=== PATIENT | female | born 1945 | race Caucasian/White ===

== ENCOUNTER 2016-06-26 02:26 | Inpatient (IN) | payer MEDICARE, MEDICAID ==
[2016-06-26] MEDS: Sodium Chloride 0.9% 1,000 ML IV SCH ×2 (03:15→23:47)
[2016-06-26] MEDS ORDERED: Piperacillin Sodium/Tazobact 3.375 gm Vial IV ONE (05:09)
[2016-06-26] MEDS: Morphine Sulfate 2 mg/mL 1mL Syr IVP PRN ×3 (05:42→21:18)
[2016-06-26 06:28] VITALS: BP 146/65
[2016-06-26] MEDS: INSULIN ASPART SLIDING SCALE 100 UNITS/ML UNIT SUBQ SCH ×4 (06:46→21:10)
[2016-06-26 07:03] LABS: % BASOPHILS 0.6 % (0.0-2.0); % EOSINOPHILS 0.3 % (0.0-5.0); % LYMPHOCYTES 23.9 % (20.0-50.0); % MONOCYTES 5.6 % (2.0-10.0); % NEUTROPHILS 69.6 % (40.0-80.0); HEMOGLOBIN 11.9 gm/dL (11.7-16.1); MEAN CELL VOLUME 87.5 fl (81-100); MEAN CORPUSCULAR HEMOGLOBIN 29.8 pg (27.0-31.0); MEAN PLATELET VOLUME 8.5 fl; NEUTROPHILE ABSOLUTE 9.3 Th/cmm (1.8-8.0); PLATELET COUNT 271 Th/cmm (150-400); RED CELL DISTRIBUTION WIDTH 12.8 % (11.5-20.0)
[2016-06-26 07:10] LABS: ALB/GLOB RATIO 0.9 (1.0-1.8); ALKALINE PHOSPHATASE 127 U/L (34-104); ANION GAP 12.1 (7.0-16.0); BILIRUBIN,TOTAL 0.3 mg/dL (0.3-1.0); BUN - UREA NITROGEN 31 mg/dL (7-25); BUN/CREATININE RATIO 25.8; CALCIUM SERUM 8.5 mg/dL (8.6-10.3); CARBON DIOXIDE 19.8 mEq/L (21.0-31.0); CHLORIDE 105 mEq/L (98-107); CREATININE - SERUM 1.2 mg/dL (0.6-1.2); GLUCOSE 335 mg/dL (70-105); POTASSIUM SERUM 4.9 mEq/L (3.5-5.1); SGOT 38 U/L (13-39); SGPT/ALT 22 U/L (7-52); SODIUM SERUM 132 mEq/L (136-145)
[2016-06-26 07:53] LABS: WHITE BLOOD COUNT 13.3 Th/cmm (4.8-10.8)
--- NOTE | 2016-06-26 09:37 | History & Physical ---
CHIEF COMPLAINT: Cellulitis. HISTORY OF PRESENT ILLNESS: This is the case of a 70-year-old female who went to [facility] secondary to bilateral foot pain that had been progressing for the last 2 months. She referred in the beginning, pain was intermittent, but now is bilateral and constant. The patient was evaluated in [facility] and diagnosis was cellulitis with poor lower extremities circulation. The patient was then transferred to this hospital to continue treatment. PAST MEDICAL HISTORY: The patient has past medical history of diabetes mellitus and Parkinson disease. SOCIAL HISTORY: The patient lives at home with family members. She denies alcohol or drug abuse. MEDICATIONS: Reviewed. ALLERGIES: No known allergies. PAST SURGICAL HISTORY: Cholecystectomy. REVIEW OF SYSTEMS: LUNGS: The patient denies shortness of breath. HEART: The patient denies chest pain. ABDOMEN: Unremarkable. EXTREMITIES: The patient referred bilateral leg pain. PHYSICAL EXAMINATION: GENERAL: Does reveal and fairly nourished and developed female, awake, alert in some distress secondary to leg pain. HEENT: Head is normocephalic and atraumatic. Eyes: Pupils reactive to light. Nose: No evidence of nasal obstruction. Ears: No evidence of any discharge. Mouth: Fairly ____. LUNGS: Bilateral air entry. No wheezing, no crackles. HEART: Regular rate and rhythm. ABDOMEN: Soft, nontender, bowel sound present. EXTREMITIES: The patient has pain in both feet. Dorsalis pedis pulses are absent with poor circulation. Right foot, there is tender and decreased capillary refill and the left foot is the same. There is redness in the right foot and ankle and ulcer in the right heel and right toe. Pain increased on walking and decreased when ____ with no movement. NEUROLOGICAL: The patient is awake, alert and oriented. Nerves 2-12 grossly intact. No neurological deficit at this moment. IMPRESSION: 1. Cellulitis. 2. Peripheral vascular disease with poor leg circulation. 3. Diabetes mellitus. 4. Parkinson disease. PLAN: 1. The patient will be admitted to medical surgical floor. 2. Zosyn IV. 3. Continue home medications. 4. Insulin sliding scale. 5. Morphine for pain control. 6. Consult with Dr. Zelaya for circulation and evaluation. 7. CBC and CMP at a.m. JOB# [id number]
[2016-06-26] MEDS: Enoxaparin 30 mg/0.3 mL 0.3mL Syr SUBQ SCH (15:38)
--- NOTE | 2016-06-26 20:48 | Admit Criteria Form ---
Admit Criteria Forms - Admit Criteria Diagnosis: CELLULITIS Clinical Indications for Admission to Inpatient Care (Place 'X' for any and all applicable criteria): Admission is indicated for ANY ONE of the following(1)(2)(3)(4)(5): [ ]I. Limb-threatening infection [X]II. High-risk comorbid condition as indicated by ANY ONE of the following: [X]a) Uncontrolled diabetes (eg, HbA1c greater than 10% (0.1)) [ ]b) Cirrhosis [ ]c) Neutropenia [ ]d) Asplenia [ ]e) Immunosuppression [ ]f) Symptomatic heart failure [ ]III. Failure of outpatient therapy as indicated by ALL of the following: [ ]a) Progression or no improvement after adequate trial (minimum of 48 hours, with longer period for stable lower extremity infection) [ ]b) Adequate antibiotic regimen as indicated by use of ANY ONE of the following: [ ]i) First-generation cephalosporin (e.g., cephalexin) [ ]ii) Antistaphylococcal penicillin (e.g., dicloxacillin) [ ]iii) Penicillin-allergic patient regimen (clindamycin, extended-spectrum fluoroquinolone, or doxycycline) [ ]iv) Resistant organism (eg, methicillin-resistant Staphylococcus aureus) regimen (6) [ ]c) Outpatient intravenous therapy regimen is not appropriate due to ANY ONE of the following. (7)(8)(9)(10): [ ]i) It was tried and was not successful (eg, progression of infection). [ ]ii) It is not available or cannot be arranged in a clinically appropriate time frame (e.g., the next day). [ ]iii) Clinical presentation (eg, acuity of infection, rapidity of progression, confirmed or suspected bacteremia) is judged to require ALL of the following: [ ]1) Immediate initiation of intravenous therapy ( eg, cannot wait for next day) [ ]2) Intensity of patient monitoring and observation (eg, vital sign measurement, checks for infection progression) that cannot be provided at other than inpatient level of care [ ]IV. Mental status changes [ ]V. Bacteremia [ ]. Hemodynamic instability [ ]VII. Suspected necrotizing soft tissue infection (e.g., gas in tissue)(11)( 12) [ ]VIII. Orbital infection (13)(14) [ ]IX. Associated surgical procedure (e.g., abscess drainage, debridement) not amenable to outpatient, emergency department, or observation care [ ]X. Cutaneous gangrene [ ]XI. High fever (temperature greater than 39.5 degrees C (103.1 degrees F) (oral)) not responsive to outpatient, emergency department, or observation care therapy [ ]XIII. Inpatient admission required rather than observation care (Also use Cellulitis: Observation Care as appropriate) because of ANY ONE of the following : [ ]a) Periorbital or perineal infection that is severe or worsening [ ]b) Severe pain requiring acute inpatient management [ ]c) IV fluid to replace significant ongoing (e.g., for over 24 hours) losses (greater than 3L/m2 per day) [ ]d) Compartment syndrome monitoring (17) [ ]e) Strict or protective (eg, laminar flow) isolation [ ]f) Urgent debridement or skin grafting [ ]g) Bone or joint debridement [ ]h) Immediate inpatient surgery [ ]i) Other condition, treatment or monitoring requiring inpatient admission Extended stay beyond goal length of stay may be needed for (1)(18): [ ]a) Necrotizing soft tissue infection or fasciitis [ ]b) Gram-negative infection [ ]c) Methicillin-resistant Staphylococcal aureus (MRSA) infection [ ]d) Peripheral venous insufficiency with cellulitis [ ]e) Extensive edema [ ]f) Sepsis or continued Hemodynamic instability [ ]g) Continued high fever or mental status change [ ]h) Bacteremia [ ]i) Active serious comorbid conditions ( eg, heart failure, renal insufficiency) The original [facility] [employer] content created by [employer] in [place] has been revised. The portions of the content which have been revised are identified through the use of italic text or in bold, and [facility] has neither reviewed nor approved the modified material. All other unmodified content is copyright [facility] Please see references footnoted in the original [facility] in [place] edition 2016 Admit Criteria Met?: Yes
[2016-06-27] MEDS: Morphine Sulfate 2 mg/mL 1mL Syr IVP PRN ×4 (01:35→20:45)
[2016-06-27] MEDS: INSULIN ASPART SLIDING SCALE 100 UNITS/ML UNIT SUBQ SCH ×4 (06:39→21:11)
[2016-06-27 07:06] LABS: % BASOPHILS 0.5 % (0.0-2.0); % EOSINOPHILS 2.2 % (0.0-5.0); % MONOCYTES 6.7 % (2.0-10.0); % NEUTROPHILS 56.6 % (40.0-80.0); HEMATOCRIT 35.2 % (35.0-45.0); HEMOGLOBIN 11.9 gm/dL (11.7-16.1); MEAN CORPUSCULAR HEMOGLOBIN 29.7 pg (27.0-31.0); MEAN CORPUSCULAR HGB CONC 33.7 pg (28.0-36.0); NEUTROPHILE ABSOLUTE 6.1 Th/cmm (1.8-8.0); PLATELET COUNT 280 Th/cmm (150-400); RED CELL DISTRIBUTION WIDTH 12.8 % (11.5-20.0); WHITE BLOOD COUNT 10.7 Th/cmm (4.8-10.8)
[2016-06-27 07:26] LABS: INR 0.96 (0.5-1.4)
[2016-06-27 07:31] LABS: ALB/GLOB RATIO 0.9 (1.0-1.8); ALKALINE PHOSPHATASE 122 U/L (34-104); BILIRUBIN,TOTAL 0.5 mg/dL (0.3-1.0); BUN - UREA NITROGEN 21 mg/dL (7-25); BUN/CREATININE RATIO 17.5; CALCIUM SERUM 8.7 mg/dL (8.6-10.3); CARBON DIOXIDE 24.3 mEq/L (21.0-31.0); CHLORIDE 106 mEq/L (98-107); CREATININE - SERUM 1.2 mg/dL (0.6-1.2); GLUCOSE 223 mg/dL (70-105); POTASSIUM SERUM 4.3 mEq/L (3.5-5.1); SGOT 32 U/L (13-39); SGPT/ALT 5 U/L (7-52); SODIUM SERUM 135 mEq/L (136-145)
[2016-06-27] MEDS: Enoxaparin 30 mg/0.3 mL 0.3mL Syr SUBQ SCH ×3 (09:16→21:10)
--- NOTE | 2016-06-27 11:23 | General Progress Note ---
Subjective - Review of Systems Service Date: 06/27/16 Events since last encounter: consult dictated ulcer right heel for 2 months has been lying down a lot, can ambulate doppler arterial study done, no results yet has right heel ulcer that will need debridement might required CT angiogram Objective - Results Result Diagrams: 06/27/16 06:40 06/27/16 06:40 Recent Labs: Laboratory Last Values WBC 10.7 Th/cmm (4.8-10.8) 06/27/16 06:40 RBC 4.00 Mil/cmm (3.80-5.20) 06/27/16 06:40 Hgb 11.9 gm/dL (11.7-16.1) 06/27/16 06:40 Hct 35.2 % (35.0-45.0) 06/27/16 06:40 MCV 88.0 fl (81-100) 06/27/16 06:40 MCH 29.7 pg (27.0-31.0) 06/27/16 06:40 MCHC Differential 33.7 pg (28.0-36.0) 06/27/16 06:40 RDW 12.8 % (11.5-20.0) 06/27/16 06:40 Plt Count 280 Th/cmm (150-400) 06/27/16 06:40 MPV 8.0 fl 06/27/16 06:40 Neutrophils % 56.6 % (40.0-80.0) 06/27/16 06:40 Lymphocytes % 34.0 % (20.0-50.0) 06/27/16 06:40 Monocytes % 6.7 % (2.0-10.0) 06/27/16 06:40 Eosinophils % 2.2 % (0.0-5.0) 06/27/16 06:40 Basophils % 0.5 % (0.0-2.0) 06/27/16 06:40 PT 10.0 SECONDS (9.5-11.5) 06/27/16 06:40 INR 0.96 (0.5-1.4) 06/27/16 06:40 Sodium 135 mEq/L (136-145) L 06/27/16 06:40 Potassium 4.3 mEq/L (3.5-5.1) 06/27/16 06:40 Chloride 106 mEq/L (98-107) 06/27/16 06:40 Carbon Dioxide 24.3 mEq/L (21.0-31.0) 06/27/16 06:40 Anion Gap 9.0 (7.0-16.0) 06/27/16 06:40 BUN 21 mg/dL (7-25) 06/27/16 06:40 Creatinine 1.2 mg/dL (0.6-1.2) 06/27/16 06:40 Est GFR ( Amer) TNP 06/27/16 06:40 Est GFR (Non-Af Amer) TNP 06/27/16 06:40 BUN/Creatinine Ratio 17.5 06/27/16 06:40 Glucose 223 mg/dL (70-105) H 06/27/16 06:40 POC Glucose 234 MG/DL (70 - 105) H 06/27/16 05:52 Hemoglobin A1c % 11.1 % (4.0-6.0) H 06/26/16 06:45 Calcium 8.7 mg/dL (8.6-10.3) 06/27/16 06:40 Total Bilirubin 0.5 mg/dL (0.3-1.0) 06/27/16 06:40 AST 32 U/L (13-39) 06/27/16 06:40 ALT 5 U/L (7-52) L 06/27/16 06:40 Alkaline Phosphatase 122 U/L (34-104) H 06/27/16 06:40 Total Protein 6.3 gm/dL (6.0-8.3) 06/27/16 06:40 Albumin 3.0 gm/dL (3.7-5.3) L 06/27/16 06:40 Globulin 3.3 gm/dL 06/27/16 06:40 Albumin/Globulin Ratio 0.9 (1.0-1.8) L 06/27/16 06:40 TSH 1.52 uIU/ml (0.34-5.60) 06/27/16 06:40 - Physical Exam Vitals and I&O: Vital Signs Temp 97.8 F 06/27/16 05:00 Pulse 79 06/27/16 05:00 Resp 20 06/27/16 05:00 BP 161/73 06/27/16 05:00 Pulse Ox 92 06/27/16 05:00 Intake & Output 06/26/16 06/27/16 06/27/16 17:59 06:59 18:59 Intake Total Balance Intake: Intake, IV Amount Piperacillin Sodium/ Tazobact 3.375 gm In Sodium Chloride 0.9% 50 ml @ 100 mls/hr IV Q8HR [facility] Rx#:[id number] Sodium Chloride 0.9% 1, 000 ml @ 50 mls/hr IV . Q20H [facility] Rx#:[id number] Oral Other: # Voids # Bowel Movements Stool Characteristics Active Medications: Current Medications Acetaminophen (Tylenol) 650 mg PO Q6H PRN PRN Reason: FEVER 101, MILD PAIN Stop: 08/25/16 03:02 Last Admin: 06/26/16 19:42 Dose: 650 mg Carbidopa/Levodopa (Sinemet 25mg-100 Mg) 1 tab PO TID [facility] Stop: 08/25/16 08:59 Last Admin: 06/27/16 09:17 Dose: 1 tab Cholecalciferol (Vitamin D3) 2,000 iu PO DAILY [facility] Stop: 08/25/16 08:59 Last Admin: 06/27/16 09:17 Dose: 2,000 iu Enoxaparin Sodium (Lovenox) 30 mg SUBQ Q12HR [facility] Stop: 08/25/16 13:59 Last Admin: 06/27/16 09:19 Dose: 30 mg Piperacillin Sod/Tazobactam (Sod 3.375 gm/ Sodium Chloride) 50 mls @ 100 mls/ hr IV Q8HR [facility] Stop: 08/25/16 04:59 Last Admin: 06/27/16 05:55 Dose: 100 mls/hr Sodium Chloride (Nacl 0.9%) 1,000 mls @ 50 mls/hr IV .Q20H [facility] Stop: 08/25/16 03:14 Last Admin: 06/26/16 23:47 Dose: 50 mls/hr Insulin Aspart (Novolog Insulin Sliding Scale) 0 units SUBQ ACHS [facility] PRN Reason: Protocol Stop: 08/25/16 07:29 Last Admin: 06/27/16 06:39 Dose: 5 units Metformin HCl (Glucophage) 1,000 mg PO BIDWM [facility] Stop: 08/25/16 17:59 Last Admin: 06/27/16 09:17 Dose: 1,000 mg Morphine Sulfate (Morphine) 1 mg IVP Q4HR PRN PRN Reason: Pain (Severe) Stop: 08/25/16 20:54 Last Admin: 06/27/16 09:14 Dose: 1 mg Nutritional Asmnt/Malnutr-PDOC - Dietary Evaluation Malnutrition Findings (Please click <Entered> for more info): Nutritional Asmnt/Malnutrition Start: 06/26/16 09: 58 Text: Status: Complete Freq: Document 06/26/16 09:58 ROXANNE (Rec: 06/26/16 10:14 MMCAIT LEMONS- [email or web address]) Nutritional Asmnt/Malnutrition Patient General Information Nutritional Screening High Risk Screening Diagnosis Foot cellulitis (reason for visit) Pertinent Medical Hx/Surgical Hx diabetes and parkinson's disease Subjective Information Patient was transferred to this hospital with foot cellulitis. Patient lying in bed with granddaughter at bedside. Per granddaughter, patient's blood sugar is better controlled at home and doesn't usually go above 200 ( now 335). Patient does not follow a diabetic diet or know what foods affect blood sugar . Provided granddaughter with DM diet education including handouts on food sources of carbohydrates, meal planning and serving sizes. Current Diet Order/ Nutrition Support [facility] / S.O Indicated Pertinent Medications vitamin D, novolog Pertinent Labs (06/26) Na 132, Glucose 346, 335, Albumin 3 Nutritional Hx/Data Height 1.55 m Height (Calculated Centimeters) 154.9 Current Weight (lbs) 64.41 kg Weight (Calculated Kilograms) 64.4 Weight (Calculated Grams) 06215.1 [place] Body Weight 105 % [place] Body Weight 135 Recent Weight Change No Weight Status Overweight GI Symptoms GI Symptoms None Food Allergies No Cultural/Ethnic/Druze Belief none indicated Usual diet at home regular Skin Integrity/Comment: 3+ non-pitting edema in R Leg, 2+ non-pitting edema in L leg , Kei 18, Estimated Nutritional Goals BEE in Kcals: Using Current wt Calories/Kcals/Kg 25-30 kcal/kg Kcals Calculated 8628-1625 kcal/day Protein: Using Current wt Protein g/k-1.2 gm/kg (wound healing) Protein Calculated 65-75 gm/day Fluid: ml 3660-7608 ml/day Nutritional Problem 2. Problem Problem Food and nutrition related knowledge deficit related to Etiology lack of prior education on DM diet aeb Signs/Symptoms: unable to recognize food sources of carbohydrates. 1. Problem Problem Altered nutrition related lab values related to Etiology uncontrolled hyperglycemia aeb Signs/Symptoms: glucose 346, 335 Intervention/Recommendation Comments 1. Continue 60gm CCHO diet as tolerated by patient. 2. DM diet education provided/ handouts given. 3. MD to continue to adjust insulin regimen for optimal glycemic control. Expected Outcomes/Goals Expected Outcomes/Goals oral intake >75% of meals, glucose improves (80-180), skin integrity improves, weight remains stable.
--- NOTE | 2016-06-27 11:33 | Diagnostic Imaging Report ---
Bilateral lower extremity Doppler arterial ultrasound exam HISTORY: Pain, peripheral vascular disease Sonographic sector images were obtained through the arterial systems of both legs. Associated Doppler data was obtained. The exam of the left leg demonstrates abnormal monophasic waveforms within the common femoral, mid and distal superficial femoral, popliteal, anterior tibial, posterior tibial, and dorsalis pedis arteries. Marked increase in velocity noted within the distal portion of the superficial femoral artery. Sonographic images demonstrate diffuse mild severe atherosclerotic plaque throughout the entire arterial system. The ankle-brachial index is elevated (1.8). The right leg demonstrates biphasic waveforms within the common femoral and proximal portion of the superficial femoral artery. Abnormal monophasic waveforms are seen through the remainder of the arterial system. Abnormal decrease in velocity noted within the distal portion of the superficial femoral artery. Sonographic images demonstrate mild to moderate diffuse atherosclerotic plaque throughout the arterial system. The ankle-brachial index equals 1.23). IMPRESSION: Evidence of mild to severe diffuse atherosclerotic changes bilaterally (left greater in the right). Findings appear most pronounced within the distal superficial femoral artery regions. A CT angiographic study would provide additional detail and assessment.
--- NOTE | 2016-06-27 12:14 | General Progress Note ---
Subjective - Review of Systems Service Date: 06/27/16 Subjective: I have leg pain Objective - Results Result Diagrams: 06/27/16 06:40 06/27/16 06:40 Recent Labs: Laboratory Last Values WBC 10.7 Th/cmm (4.8-10.8) 06/27/16 06:40 RBC 4.00 Mil/cmm (3.80-5.20) 06/27/16 06:40 Hgb 11.9 gm/dL (11.7-16.1) 06/27/16 06:40 Hct 35.2 % (35.0-45.0) 06/27/16 06:40 MCV 88.0 fl (81-100) 06/27/16 06:40 MCH 29.7 pg (27.0-31.0) 06/27/16 06:40 MCHC Differential 33.7 pg (28.0-36.0) 06/27/16 06:40 RDW 12.8 % (11.5-20.0) 06/27/16 06:40 Plt Count 280 Th/cmm (150-400) 06/27/16 06:40 MPV 8.0 fl 06/27/16 06:40 Neutrophils % 56.6 % (40.0-80.0) 06/27/16 06:40 Lymphocytes % 34.0 % (20.0-50.0) 06/27/16 06:40 Monocytes % 6.7 % (2.0-10.0) 06/27/16 06:40 Eosinophils % 2.2 % (0.0-5.0) 06/27/16 06:40 Basophils % 0.5 % (0.0-2.0) 06/27/16 06:40 PT 10.0 SECONDS (9.5-11.5) 06/27/16 06:40 INR 0.96 (0.5-1.4) 06/27/16 06:40 Sodium 135 mEq/L (136-145) L 06/27/16 06:40 Potassium 4.3 mEq/L (3.5-5.1) 06/27/16 06:40 Chloride 106 mEq/L (98-107) 06/27/16 06:40 Carbon Dioxide 24.3 mEq/L (21.0-31.0) 06/27/16 06:40 Anion Gap 9.0 (7.0-16.0) 06/27/16 06:40 BUN 21 mg/dL (7-25) 06/27/16 06:40 Creatinine 1.2 mg/dL (0.6-1.2) 06/27/16 06:40 Est GFR ( Amer) TNP 06/27/16 06:40 Est GFR (Non-Af Amer) TNP 06/27/16 06:40 BUN/Creatinine Ratio 17.5 06/27/16 06:40 Glucose 223 mg/dL (70-105) H 06/27/16 06:40 POC Glucose 234 MG/DL (70 - 105) H 06/27/16 05:52 Hemoglobin A1c % 11.1 % (4.0-6.0) H 06/26/16 06:45 Calcium 8.7 mg/dL (8.6-10.3) 06/27/16 06:40 Total Bilirubin 0.5 mg/dL (0.3-1.0) 06/27/16 06:40 AST 32 U/L (13-39) 06/27/16 06:40 ALT 5 U/L (7-52) L 06/27/16 06:40 Alkaline Phosphatase 122 U/L (34-104) H 06/27/16 06:40 Total Protein 6.3 gm/dL (6.0-8.3) 06/27/16 06:40 Albumin 3.0 gm/dL (3.7-5.3) L 06/27/16 06:40 Globulin 3.3 gm/dL 06/27/16 06:40 Albumin/Globulin Ratio 0.9 (1.0-1.8) L 06/27/16 06:40 TSH 1.52 uIU/ml (0.34-5.60) 06/27/16 06:40 - Physical Exam Vitals and I&O: Vital Signs Temp 97.8 F 06/27/16 05:00 Pulse 79 06/27/16 05:00 Resp 20 06/27/16 05:00 BP 161/73 06/27/16 05:00 Pulse Ox 92 06/27/16 05:00 Intake & Output 06/26/16 06/27/16 06/27/16 17:59 06:59 18:59 Intake Total Balance Intake: Intake, IV Amount Piperacillin Sodium/ Tazobact 3.375 gm In Sodium Chloride 0.9% 50 ml @ 100 mls/hr IV Q8HR [facility] Rx#:[id number] Sodium Chloride 0.9% 1, 000 ml @ 50 mls/hr IV . Q20H [facility] Rx#:[id number] Oral Other: # Voids # Bowel Movements Stool Characteristics Active Medications: Current Medications Acetaminophen (Tylenol) 650 mg PO Q6H PRN PRN Reason: FEVER 101, MILD PAIN Stop: 08/25/16 03:02 Last Admin: 06/26/16 19:42 Dose: 650 mg Carbidopa/Levodopa (Sinemet 25mg-100 Mg) 1 tab PO TID [facility] Stop: 08/25/16 08:59 Last Admin: 06/27/16 09:17 Dose: 1 tab Cholecalciferol (Vitamin D3) 2,000 iu PO DAILY [facility] Stop: 08/25/16 08:59 Last Admin: 06/27/16 09:17 Dose: 2,000 iu Enoxaparin Sodium (Lovenox) 30 mg SUBQ Q12HR [facility] Stop: 08/25/16 13:59 Last Admin: 06/27/16 09:19 Dose: 30 mg Piperacillin Sod/Tazobactam (Sod 3.375 gm/ Sodium Chloride) 50 mls @ 100 mls/ hr IV Q8HR [facility] Stop: 08/25/16 04:59 Last Admin: 06/27/16 05:55 Dose: 100 mls/hr Sodium Chloride (Nacl 0.9%) 1,000 mls @ 50 mls/hr IV .Q20H [facility] Stop: 08/25/16 03:14 Last Admin: 06/26/16 23:47 Dose: 50 mls/hr Insulin Aspart (Novolog Insulin Sliding Scale) 0 units SUBQ ACHS [facility] PRN Reason: Protocol Stop: 08/25/16 07:29 Last Admin: 06/27/16 06:39 Dose: 5 units Metformin HCl (Glucophage) 1,000 mg PO BIDWM [facility] Stop: 08/25/16 17:59 Last Admin: 06/27/16 09:17 Dose: 1,000 mg Morphine Sulfate (Morphine) 1 mg IVP Q4HR PRN PRN Reason: Pain (Severe) Stop: 08/25/16 20:54 Last Admin: 06/27/16 09:14 Dose: 1 mg General: Alert, Oriented x3, Cooperative HEENT: Atraumatic Neck: Supple Cardiovascular: Regular rate Lungs: Clear to auscultation Abdomen: Bowel sounds, Soft Extremities: Other (There are few ulcer in both feets. Pedal pulses absent.) Neurological: Other (Unstable gait) Skin: Other (Ulcer in both feets. ) Psych/Mental Status: Mental status NL Assessment/Plan - Assessment Assessment: Patient is awake, calm, in no acute distress. Today WBC normal. Already seen by Surgeon. CT angio is requested - Plan Plan: CT angio is requested. Nutritional Asmnt/Malnutr-PDOC - Dietary Evaluation Malnutrition Findings (Please click <Entered> for more info): Nutritional Asmnt/Malnutrition Start: 06/26/16 09: 58 Text: Status: Complete Freq: Document 06/26/16 09:58 MMULMARIETTA (Rec: 06/26/16 10:14 MMULMARIETTA LEMONS- [email or web address]) Nutritional Asmnt/Malnutrition Patient General Information Nutritional Screening High Risk Screening Diagnosis Foot cellulitis (reason for visit) Pertinent Medical Hx/Surgical Hx diabetes and parkinson's disease Subjective Information Patient was transferred to this hospital with foot cellulitis. Patient lying in bed with granddaughter at bedside. Per granddaughter, patient's blood sugar is better controlled at home and doesn't usually go above 200 ( now 335). Patient does not follow a diabetic diet or know what foods affect blood sugar . Provided granddaughter with DM diet education including handouts on food sources of carbohydrates, meal planning and serving sizes. Current Diet Order/ Nutrition Support 60 gm [facility] Patient / S.O Indicated Pertinent Medications vitamin D, novolog Pertinent Labs (06/26) Na 132, Glucose 346, 335, Albumin 3 Nutritional Hx/Data Height 1.55 m Height (Calculated Centimeters) 154.9 Current Weight (lbs) 64.41 kg Weight (Calculated Kilograms) 64.4 Weight (Calculated Grams) 81942.1 [place] Body Weight 105 % [place] Body Weight 135 Recent Weight Change No Weight Status Overweight GI Symptoms GI Symptoms None Food Allergies No Cultural/Ethnic/Mu-Ism Belief none indicated Usual diet at home regular Skin Integrity/Comment: 3+ non-pitting edema in R Leg, 2+ non-pitting edema in L leg , Kei 18, Estimated Nutritional Goals BEE in Kcals: Using Current wt Calories/Kcals/Kg 25-30 kcal/kg Kcals Calculated 1810-5696 kcal/day Protein: Using Current wt Protein g/k-1.2 gm/kg (wound healing) Protein Calculated 65-75 gm/day Fluid: ml 0201-3287 ml/day Nutritional Problem 2. Problem Problem Food and nutrition related knowledge deficit related to Etiology lack of prior education on DM diet aeb Signs/Symptoms: unable to recognize food sources of carbohydrates. 1. Problem Problem Altered nutrition related lab values related to Etiology uncontrolled hyperglycemia aeb Signs/Symptoms: glucose 346, 335 Intervention/Recommendation Comments 1. Continue 60gm CCHO diet as tolerated by patient. 2. DM diet education provided/ handouts given. 3. MD to continue to adjust insulin regimen for optimal glycemic control. Expected Outcomes/Goals Expected Outcomes/Goals oral intake >75% of meals, glucose improves (80-180), skin integrity improves, weight remains stable.
--- NOTE | 2016-06-27 12:28 | Consultation ---
REFERRING PHYSICIAN: Dr. Dozier. REASON FOR CONSULTATION: Right heel ulcer and pain in both feet. Thank you for referring this patient to me. This 70-year-old female referred from [place] following examination there for bilateral foot pain. The patient does not speak [place]uvian, but granddaughter is at bedside and per her information, the patient has been mostly bedridden, but works occasionally for the last 3 months. Consequent to this, she has had the ulcer in the right heel in the last 2 to 3 months. Apparently, she still continues to get out of bed. She has diabetes mellitus and Parkinson disease. PAST SURGICAL HISTORY: Cholecystectomy. LABORATORY STUDIES: On this admission, the WBC slightly elevated to 13,300. Chemistry: Blood sugar was 335 with BUN slightly elevated to 31. Apparently vascular study has been done and the result is not available at this point. PHYSICAL EXAMINATION: EXTREMITIES: Significant findings in the lower extremity, no ankle pulses are palpable. There is a scab and a very painful ulcer in the right heel. The depth of which is difficult to determine at this point. There is a smaller ulcer in the left heel. Both feet, however, are fairly warm, although there is markedly decreased capillary refill. IMPRESSION: 1. Right heel ulcer, depth (?). 2. Peripheral vascular disease. 3. Diabetes mellitus. 4. Hypertension. RECOMMENDATIONS: Depending on the results of the vascular study, the patient might require CT angiogram. Excisional debridement of right heel ulcer will be done. Consent will be ordered and schedule for tomorrow. JOB# [id number] ROBYN
--- NOTE | 2016-06-27 15:07 | General Progress Note ---
Subjective - Review of Systems Service Date: 06/27/16 Events since last encounter: CTA orderred for tomorrow Objective - Results Result Diagrams: 06/27/16 06:40 06/27/16 06:40 Recent Labs: Laboratory Last Values WBC 10.7 Th/cmm (4.8-10.8) 06/27/16 06:40 RBC 4.00 Mil/cmm (3.80-5.20) 06/27/16 06:40 Hgb 11.9 gm/dL (11.7-16.1) 06/27/16 06:40 Hct 35.2 % (35.0-45.0) 06/27/16 06:40 MCV 88.0 fl (81-100) 06/27/16 06:40 MCH 29.7 pg (27.0-31.0) 06/27/16 06:40 MCHC Differential 33.7 pg (28.0-36.0) 06/27/16 06:40 RDW 12.8 % (11.5-20.0) 06/27/16 06:40 Plt Count 280 Th/cmm (150-400) 06/27/16 06:40 MPV 8.0 fl 06/27/16 06:40 Neutrophils % 56.6 % (40.0-80.0) 06/27/16 06:40 Lymphocytes % 34.0 % (20.0-50.0) 06/27/16 06:40 Monocytes % 6.7 % (2.0-10.0) 06/27/16 06:40 Eosinophils % 2.2 % (0.0-5.0) 06/27/16 06:40 Basophils % 0.5 % (0.0-2.0) 06/27/16 06:40 PT 10.0 SECONDS (9.5-11.5) 06/27/16 06:40 INR 0.96 (0.5-1.4) 06/27/16 06:40 Sodium 135 mEq/L (136-145) L 06/27/16 06:40 Potassium 4.3 mEq/L (3.5-5.1) 06/27/16 06:40 Chloride 106 mEq/L (98-107) 06/27/16 06:40 Carbon Dioxide 24.3 mEq/L (21.0-31.0) 06/27/16 06:40 Anion Gap 9.0 (7.0-16.0) 06/27/16 06:40 BUN 21 mg/dL (7-25) 06/27/16 06:40 Creatinine 1.2 mg/dL (0.6-1.2) 06/27/16 06:40 Est GFR ( Amer) TNP 06/27/16 06:40 Est GFR (Non-Af Amer) TNP 06/27/16 06:40 BUN/Creatinine Ratio 17.5 06/27/16 06:40 Glucose 223 mg/dL (70-105) H 06/27/16 06:40 POC Glucose 313 MG/DL (70 - 105) H 06/27/16 12:29 Hemoglobin A1c % 11.1 % (4.0-6.0) H 06/26/16 06:45 Calcium 8.7 mg/dL (8.6-10.3) 06/27/16 06:40 Total Bilirubin 0.5 mg/dL (0.3-1.0) 06/27/16 06:40 AST 32 U/L (13-39) 06/27/16 06:40 ALT 5 U/L (7-52) L 06/27/16 06:40 Alkaline Phosphatase 122 U/L (34-104) H 06/27/16 06:40 Total Protein 6.3 gm/dL (6.0-8.3) 06/27/16 06:40 Albumin 3.0 gm/dL (3.7-5.3) L 06/27/16 06:40 Globulin 3.3 gm/dL 06/27/16 06:40 Albumin/Globulin Ratio 0.9 (1.0-1.8) L 06/27/16 06:40 TSH 1.52 uIU/ml (0.34-5.60) 06/27/16 06:40 - Physical Exam Vitals and I&O: Vital Signs Temp 98.1 F 06/27/16 12:00 Pulse 80 06/27/16 12:00 Resp 18 06/27/16 12:00 BP 175/90 06/27/16 12:00 Pulse Ox 95 06/27/16 12:00 Intake & Output 06/26/16 06/27/16 06/27/16 17:59 06:59 18:59 Intake Total Balance Intake: Intake, IV Amount Piperacillin Sodium/ Tazobact 3.375 gm In Sodium Chloride 0.9% 50 ml @ 100 mls/hr IV Q8HR [facility] Rx#:[id number] Sodium Chloride 0.9% 1, 000 ml @ 50 mls/hr IV . Q20H [facility] Rx#:[id number] Oral Other: # Voids # Bowel Movements Stool Characteristics Active Medications: Current Medications Acetaminophen (Tylenol) 650 mg PO Q6H PRN PRN Reason: FEVER 101, MILD PAIN Stop: 08/25/16 03:02 Last Admin: 06/26/16 19:42 Dose: 650 mg Carbidopa/Levodopa (Sinemet 25mg-100 Mg) 1 tab PO TID [facility] Stop: 08/25/16 08:59 Last Admin: 06/27/16 09:17 Dose: 1 tab Cholecalciferol (Vitamin D3) 2,000 iu PO DAILY [facility] Stop: 08/25/16 08:59 Last Admin: 06/27/16 09:17 Dose: 2,000 iu Enoxaparin Sodium (Lovenox) 30 mg SUBQ Q12HR [facility] Stop: 08/25/16 13:59 Last Admin: 06/27/16 09:19 Dose: 30 mg Piperacillin Sod/Tazobactam (Sod 3.375 gm/ Sodium Chloride) 50 mls @ 100 mls/ hr IV Q8HR [facility] Stop: 08/25/16 04:59 Last Admin: 06/27/16 05:55 Dose: 100 mls/hr Sodium Chloride (Nacl 0.9%) 1,000 mls @ 50 mls/hr IV .Q20H [facility] Stop: 08/25/16 03:14 Last Admin: 06/26/16 23:47 Dose: 50 mls/hr Insulin Aspart (Novolog Insulin Sliding Scale) 0 units SUBQ ACHS [facility] PRN Reason: Protocol Stop: 08/25/16 07:29 Last Admin: 06/27/16 06:39 Dose: 5 units Metformin HCl (Glucophage) 1,000 mg PO BIDWM [facility] Stop: 08/25/16 17:59 Last Admin: 06/27/16 09:17 Dose: 1,000 mg Morphine Sulfate (Morphine) 1 mg IVP Q4HR PRN PRN Reason: Pain (Severe) Stop: 08/25/16 20:54 Last Admin: 06/27/16 09:14 Dose: 1 mg Nutritional Asmnt/Malnutr-PDOC - Dietary Evaluation Malnutrition Findings (Please click <Entered> for more info): Nutritional Asmnt/Malnutrition Start: 06/26/16 09: 58 Text: Status: Complete Freq: Document 06/26/16 09:58 ROXANNE (Rec: 06/26/16 10:14 ROXANNE LEMONS- FNS1) Nutritional Asmnt/Malnutrition Patient General Information Nutritional Screening High Risk Screening Diagnosis Foot cellulitis (reason for visit) Pertinent Medical Hx/Surgical Hx diabetes and parkinson's disease Subjective Information Patient was transferred to this hospital with foot cellulitis. Patient lying in bed with granddaughter at bedside. Per granddaughter, patient's blood sugar is better controlled at home and doesn't usually go above 200 ( now 335). Patient does not follow a diabetic diet or know what foods affect blood sugar . Provided granddaughter with DM diet education including handouts on food sources of carbohydrates, meal planning and serving sizes. Current Diet Order/ Nutrition Support 60 gm [facility] Patient / S.O Indicated Pertinent Medications vitamin D, novolog Pertinent Labs (06/26) Na 132, Glucose 346, 335, Albumin 3 Nutritional Hx/Data Height 1.55 m Height (Calculated Centimeters) 154.9 Current Weight (lbs) 64.41 kg Weight (Calculated Kilograms) 64.4 Weight (Calculated Grams) 82275.1 [place] Body Weight 105 % [place] Body Weight 135 Recent Weight Change No Weight Status Overweight GI Symptoms GI Symptoms None Food Allergies No Cultural/Ethnic/Episcopalian Belief none indicated Usual diet at home regular Skin Integrity/Comment: 3+ non-pitting edema in R Leg, 2+ non-pitting edema in L leg , Kei 18, Estimated Nutritional Goals BEE in Kcals: Using Current wt Calories/Kcals/Kg 25-30 kcal/kg Kcals Calculated 1552-8314 kcal/day Protein: Using Current wt Protein g/k-1.2 gm/kg (wound healing) Protein Calculated 65-75 gm/day Fluid: ml 5410-4423 ml/day Nutritional Problem 2. Problem Problem Food and nutrition related knowledge deficit related to Etiology lack of prior education on DM diet aeb Signs/Symptoms: unable to recognize food sources of carbohydrates. 1. Problem Problem Altered nutrition related lab values related to Etiology uncontrolled hyperglycemia aeb Signs/Symptoms: glucose 346, 335 Intervention/Recommendation Comments 1. Continue 60gm CCHO diet as tolerated by patient. 2. DM diet education provided/ handouts given. 3. MD to continue to adjust insulin regimen for optimal glycemic control. Expected Outcomes/Goals Expected Outcomes/Goals oral intake >75% of meals, glucose improves (80-180), skin integrity improves, weight remains stable.
[2016-06-27] MEDS: Sodium Chloride 0.9% 1,000 ML IV SCH (20:03)
[2016-06-28] MEDS: INSULIN ASPART SLIDING SCALE 100 UNITS/ML UNIT SUBQ SCH ×4 (06:42→22:35)
[2016-06-28 07:07] LABS: % BASOPHILS 0.4 % (0.0-2.0); % EOSINOPHILS 0.4 % (0.0-5.0); % LYMPHOCYTES 18.9 % (20.0-50.0); % MONOCYTES 6.4 % (2.0-10.0); % NEUTROPHILS 73.9 % (40.0-80.0); HEMATOCRIT 36.5 % (35.0-45.0); HEMOGLOBIN 12.1 gm/dL (11.7-16.1); MEAN CELL VOLUME 87.5 fl (81-100); MEAN CORPUSCULAR HEMOGLOBIN 29.1 pg (27.0-31.0); MEAN CORPUSCULAR HGB CONC 33.3 pg (28.0-36.0); MEAN PLATELET VOLUME 8.2 fl; NEUTROPHILE ABSOLUTE 9.8 Th/cmm (1.8-8.0); PLATELET COUNT 285 Th/cmm (150-400); RED BLOOD COUNT 4.17 Mil/cmm (3.80-5.20); RED CELL DISTRIBUTION WIDTH 12.6 % (11.5-20.0)
[2016-06-28 07:13] LABS: ALB/GLOB RATIO 0.9 (1.0-1.8); ALKALINE PHOSPHATASE 119 U/L (34-104); ANION GAP 12.2 (7.0-16.0); BILIRUBIN,TOTAL 0.4 mg/dL (0.3-1.0); BUN - UREA NITROGEN 11 mg/dL (7-25); BUN/CREATININE RATIO 12.2; CALCIUM SERUM 8.9 mg/dL (8.6-10.3); CARBON DIOXIDE 23.4 mEq/L (21.0-31.0); CHLORIDE 102 mEq/L (98-107); CREATININE - SERUM 0.9 mg/dL (0.6-1.2); GLUCOSE 255 mg/dL (70-105); POTASSIUM SERUM 3.6 mEq/L (3.5-5.1); SGOT 16 U/L (13-39); SGPT/ALT 8 U/L (7-52); SODIUM SERUM 134 mEq/L (136-145)
[2016-06-28 07:31] LABS: WHITE BLOOD COUNT 13.5 Th/cmm (4.8-10.8)
--- NOTE | 2016-06-28 08:37 | General Progress Note ---
Subjective - Review of Systems Service Date: 06/28/16 Subjective: I have leg pain Objective - Results Result Diagrams: 06/28/16 06:20 06/28/16 06:20 Recent Labs: Laboratory Last Values WBC 13.5 Th/cmm (4.8-10.8) H D 06/28/16 06:20 RBC 4.17 Mil/cmm (3.80-5.20) 06/28/16 06:20 Hgb 12.1 gm/dL (11.7-16.1) 06/28/16 06:20 Hct 36.5 % (35.0-45.0) 06/28/16 06:20 MCV 87.5 fl (81-100) 06/28/16 06:20 MCH 29.1 pg (27.0-31.0) 06/28/16 06:20 MCHC Differential 33.3 pg (28.0-36.0) 06/28/16 06:20 RDW 12.6 % (11.5-20.0) 06/28/16 06:20 Plt Count 285 Th/cmm (150-400) 06/28/16 06:20 MPV 8.2 fl 06/28/16 06:20 Neutrophils % 73.9 % (40.0-80.0) 06/28/16 06:20 Lymphocytes % 18.9 % (20.0-50.0) L 06/28/16 06:20 Monocytes % 6.4 % (2.0-10.0) 06/28/16 06:20 Eosinophils % 0.4 % (0.0-5.0) 06/28/16 06:20 Basophils % 0.4 % (0.0-2.0) 06/28/16 06:20 PT 10.0 SECONDS (9.5-11.5) 06/27/16 06:40 INR 0.96 (0.5-1.4) 06/27/16 06:40 Sodium 134 mEq/L (136-145) L 06/28/16 06:20 Potassium 3.6 mEq/L (3.5-5.1) 06/28/16 06:20 Chloride 102 mEq/L (98-107) 06/28/16 06:20 Carbon Dioxide 23.4 mEq/L (21.0-31.0) 06/28/16 06:20 Anion Gap 12.2 (7.0-16.0) 06/28/16 06:20 BUN 11 mg/dL (7-25) 06/28/16 06:20 Creatinine 0.9 mg/dL (0.6-1.2) 06/28/16 06:20 Est GFR ( Amer) TNP 06/28/16 06:20 Est GFR (Non-Af Amer) TNP 06/28/16 06:20 BUN/Creatinine Ratio 12.2 06/28/16 06:20 Glucose 255 mg/dL (70-105) H 06/28/16 06:20 POC Glucose 249 MG/DL (70 - 105) H 06/28/16 05:59 Hemoglobin A1c % 11.1 % (4.0-6.0) H 06/26/16 06:45 Calcium 8.9 mg/dL (8.6-10.3) 06/28/16 06:20 Total Bilirubin 0.4 mg/dL (0.3-1.0) 06/28/16 06:20 AST 16 U/L (13-39) 06/28/16 06:20 ALT 8 U/L (7-52) 06/28/16 06:20 Alkaline Phosphatase 119 U/L (34-104) H 06/28/16 06:20 Total Protein 6.6 gm/dL (6.0-8.3) 06/28/16 06:20 Albumin 3.1 gm/dL (3.7-5.3) L 06/28/16 06:20 Globulin 3.5 gm/dL 06/28/16 06:20 Albumin/Globulin Ratio 0.9 (1.0-1.8) L 06/28/16 06:20 TSH 1.52 uIU/ml (0.34-5.60) 06/27/16 06:40 - Physical Exam Vitals and I&O: Vital Signs Temp 98.7 F 06/28/16 07:45 Pulse 108 06/28/16 07:45 Resp 18 06/28/16 07:45 BP 150/85 06/28/16 07:45 Pulse Ox 92 06/28/16 07:45 Intake & Output 06/27/16 06/28/16 06/28/16 18:59 06:59 18:59 Intake Total 460 1013.333 Balance 460 1013.333 Intake: Intake, IV Amount 60 1013.333 Piperacillin Sodium/ 60 50 Tazobact 3.375 gm In Sodium Chloride 0.9% 50 ml @ 100 mls/hr IV Q8HR [facility] Rx#:[id number] Sodium Chloride 0.9% 1, 963.333 000 ml @ 50 mls/hr IV . Q20H [facility] Rx#:[id number] Oral 400 Other: # Voids 4 # Bowel Movements 1 Active Medications: Current Medications Acetaminophen (Tylenol) 650 mg PO Q6H PRN PRN Reason: FEVER 101, MILD PAIN Stop: 08/25/16 03:02 Last Admin: 06/27/16 15:12 Dose: 650 mg Carbidopa/Levodopa (Sinemet 25mg-100 Mg) 1 tab PO TID [facility] Stop: 08/25/16 08:59 Last Admin: 06/27/16 21:09 Dose: 1 tab Cholecalciferol (Vitamin D3) 2,000 iu PO DAILY [facility] Stop: 08/25/16 08:59 Last Admin: 06/27/16 09:17 Dose: 2,000 iu Enoxaparin Sodium (Lovenox) 30 mg SUBQ Q12HR [facility] Stop: 08/25/16 13:59 Last Admin: 06/27/16 21:10 Dose: 30 mg Piperacillin Sod/Tazobactam (Sod 3.375 gm/ Sodium Chloride) 50 mls @ 100 mls/ hr IV Q8HR [facility] Stop: 08/25/16 04:59 Last Admin: 06/28/16 05:59 Dose: 100 mls/hr Sodium Chloride (Nacl 0.9%) 1,000 mls @ 50 mls/hr IV .Q20H [facility] Stop: 08/25/16 03:14 Last Admin: 06/27/16 20:03 Dose: 50 mls/hr Insulin Aspart (Novolog Insulin Sliding Scale) 0 units SUBQ ACHS [facility] PRN Reason: Protocol Stop: 08/25/16 07:29 Last Admin: 06/28/16 06:42 Dose: Not Given Lorazepam (Ativan) 1 mg IVP Q8HR PRN; Protocol PRN Reason: Agitation Stop: 08/26/16 23:27 Last Admin: 06/28/16 00:01 Dose: 1 mg Morphine Sulfate (Morphine) 1 mg IVP Q4HR PRN PRN Reason: Pain (Severe) Stop: 08/25/16 20:54 Last Admin: 06/27/16 20:45 Dose: 1 mg General: Alert, Oriented x3, Cooperative, Mild distress HEENT: Atraumatic Neck: Supple Cardiovascular: Regular rate Abdomen: Bowel sounds, Soft Extremities: Other (No edema, Redness improving, pain at movement of both legs. ) Neurological: Other (Non ambulatory) Skin: Other (There are some ulcers in both feets. ) Psych/Mental Status: Mental status NL Assessment/Plan - Assessment Assessment: Patient is awake, calm, in no acute distress. Today WBC is high. CT angio is requested - Plan Plan: CT angio is requested. Nutritional Asmnt/Malnutr-PDOC - Dietary Evaluation Malnutrition Findings (Please click <Entered> for more info): Nutritional Asmnt/Malnutrition Start: 06/26/16 09: 58 Text: Status: Complete Freq: Document 06/26/16 09:58 ROXANNE (Rec: 06/26/16 10:14 MMULN CRISTO- FNS1) Nutritional Asmnt/Malnutrition Patient General Information Nutritional Screening High Risk Screening Diagnosis Foot cellulitis (reason for visit) Pertinent Medical Hx/Surgical Hx diabetes and parkinson's disease Subjective Information Patient was transferred to this hospital with foot cellulitis. Patient lying in bed with granddaughter at bedside. Per granddaughter, patient's blood sugar is better controlled at home and doesn't usually go above 200 ( now 335). Patient does not follow a diabetic diet or know what foods affect blood sugar . Provided granddaughter with DM diet education including handouts on food sources of carbohydrates, meal planning and serving sizes. Current Diet Order/ Nutrition Support 60 gm [facility] [place] Patient / S.O Indicated Pertinent Medications vitamin D, novolog Pertinent Labs (06/26) Na 132, Glucose 346, 335, Albumin 3 Nutritional Hx/Data Height 1.55 m Height (Calculated Centimeters) 154.9 Current Weight (lbs) 64.41 kg Weight (Calculated Kilograms) 64.4 Weight (Calculated Grams) 48767.1 [place] Body Weight 105 % [place] Body Weight 135 Recent Weight Change No Weight Status Overweight GI Symptoms GI Symptoms None Food Allergies No Cultural/Ethnic/Voodoo Belief none indicated Usual diet at home regular Skin Integrity/Comment: 3+ non-pitting edema in R Leg, 2+ non-pitting edema in L leg , Kei 18, Estimated Nutritional Goals BEE in Kcals: Using Current wt Calories/Kcals/Kg 25-30 kcal/kg Kcals Calculated 3957-6490 kcal/day Protein: Using Current wt Protein g/k-1.2 gm/kg (wound healing) Protein Calculated 65-75 gm/day Fluid: ml 0247-2334 ml/day Nutritional Problem 2. Problem Problem Food and nutrition related knowledge deficit related to Etiology lack of prior education on DM diet aeb Signs/Symptoms: unable to recognize food sources of carbohydrates. 1. Problem Problem Altered nutrition related lab values related to Etiology uncontrolled hyperglycemia aeb Signs/Symptoms: glucose 346, 335 Intervention/Recommendation Comments 1. Continue 60gm CCHO diet as tolerated by patient. 2. DM diet education provided/ handouts given. 3. MD to continue to adjust insulin regimen for optimal glycemic control. Expected Outcomes/Goals Expected Outcomes/Goals oral intake >75% of meals, glucose improves (80-180), skin integrity improves, weight remains stable.
[2016-06-28] MEDS: Morphine Sulfate 2 mg/mL 1mL Syr IVP PRN ×2 (09:00→21:15)
[2016-06-28] MEDS: Enoxaparin 30 mg/0.3 mL 0.3mL Syr SUBQ SCH ×2 (09:00→21:05)
[2016-06-28] MEDS ORDERED: IOHEXOL 350mg/mL 100mL Bottle IVP ONE (09:46)
--- NOTE | 2016-06-28 09:46 | Diagnostic Imaging Report ---
CHEST X-RAY: AP view INDICATION: Pneumonia COMPARISON: None FINDINGS: Suboptimal lung volumes are seen. No focal consolidation. There may be a small right pleural effusion versus right basal pleural thickening. Mild cardiomegaly is noted. Degenerative changes of the spine are noted. There is evidence of prior cholecystectomy. IMPRESSION: Suboptimal lung volume with no focal consolidation identified. Right basal pleural thickening versus less likely small right effusion. Mild cardiomegaly.
[2016-06-28] MEDS ORDERED: fentaNYL Citrate 100 mcg/2mL Vial ONE (12:59)
[2016-06-28] MEDS ORDERED: Midazolam 1mg/ml 2 ml vial IV ONE (12:59)
--- NOTE | 2016-06-28 13:17 | General Progress Note ---
Subjective - Review of Systems Service Date: 06/28/16 Events since last encounter: debridement done wound vac applied CTA later today Objective - Results Result Diagrams: 06/28/16 06:20 06/28/16 06:20 Recent Labs: Laboratory Last Values WBC 13.5 Th/cmm (4.8-10.8) H D 06/28/16 06:20 RBC 4.17 Mil/cmm (3.80-5.20) 06/28/16 06:20 Hgb 12.1 gm/dL (11.7-16.1) 06/28/16 06:20 Hct 36.5 % (35.0-45.0) 06/28/16 06:20 MCV 87.5 fl (81-100) 06/28/16 06:20 MCH 29.1 pg (27.0-31.0) 06/28/16 06:20 MCHC Differential 33.3 pg (28.0-36.0) 06/28/16 06:20 RDW 12.6 % (11.5-20.0) 06/28/16 06:20 Plt Count 285 Th/cmm (150-400) 06/28/16 06:20 MPV 8.2 fl 06/28/16 06:20 Neutrophils % 73.9 % (40.0-80.0) 06/28/16 06:20 Lymphocytes % 18.9 % (20.0-50.0) L 06/28/16 06:20 Monocytes % 6.4 % (2.0-10.0) 06/28/16 06:20 Eosinophils % 0.4 % (0.0-5.0) 06/28/16 06:20 Basophils % 0.4 % (0.0-2.0) 06/28/16 06:20 PT 10.0 SECONDS (9.5-11.5) 06/27/16 06:40 INR 0.96 (0.5-1.4) 06/27/16 06:40 Sodium 134 mEq/L (136-145) L 06/28/16 06:20 Potassium 3.6 mEq/L (3.5-5.1) 06/28/16 06:20 Chloride 102 mEq/L (98-107) 06/28/16 06:20 Carbon Dioxide 23.4 mEq/L (21.0-31.0) 06/28/16 06:20 Anion Gap 12.2 (7.0-16.0) 06/28/16 06:20 BUN 11 mg/dL (7-25) 06/28/16 06:20 Creatinine 0.9 mg/dL (0.6-1.2) 06/28/16 06:20 Est GFR ( Amer) TNP 06/28/16 06:20 Est GFR (Non-Af Amer) TNP 06/28/16 06:20 BUN/Creatinine Ratio 12.2 06/28/16 06:20 Glucose 255 mg/dL (70-105) H 06/28/16 06:20 POC Glucose 280 MG/DL (70 - 105) H 06/28/16 11:44 Hemoglobin A1c % 11.1 % (4.0-6.0) H 06/26/16 06:45 Calcium 8.9 mg/dL (8.6-10.3) 06/28/16 06:20 Total Bilirubin 0.4 mg/dL (0.3-1.0) 06/28/16 06:20 AST 16 U/L (13-39) 06/28/16 06:20 ALT 8 U/L (7-52) 06/28/16 06:20 Alkaline Phosphatase 119 U/L (34-104) H 06/28/16 06:20 Total Protein 6.6 gm/dL (6.0-8.3) 06/28/16 06:20 Albumin 3.1 gm/dL (3.7-5.3) L 06/28/16 06:20 Globulin 3.5 gm/dL 06/28/16 06:20 Albumin/Globulin Ratio 0.9 (1.0-1.8) L 06/28/16 06:20 TSH 1.52 uIU/ml (0.34-5.60) 06/27/16 06:40 - Physical Exam Vitals and I&O: Vital Signs Temp 98.7 F 06/28/16 12:02 Pulse 101 06/28/16 12:02 Resp 19 06/28/16 12:02 BP 166/68 06/28/16 12:02 Pulse Ox 100 06/28/16 12:02 Intake & Output 06/27/16 06/28/16 06/28/16 18:59 06:59 18:59 Intake Total 460 1013.333 Balance 460 1013.333 Intake: Intake, IV Amount 60 1013.333 Piperacillin Sodium/ 60 50 Tazobact 3.375 gm In Sodium Chloride 0.9% 50 ml @ 100 mls/hr IV Q8HR [facility] Rx#:[id number] Sodium Chloride 0.9% 1, 963.333 000 ml @ 50 mls/hr IV . Q20H [facility] Rx#:[id number] Oral 400 Other: # Voids 4 # Bowel Movements 1 Active Medications: Current Medications Acetaminophen (Tylenol) 650 mg PO Q6H PRN PRN Reason: FEVER 101, MILD PAIN Stop: 08/25/16 03:02 Last Admin: 06/27/16 15:12 Dose: 650 mg Carbidopa/Levodopa (Sinemet 25mg-100 Mg) 1 tab PO TID [facility] Stop: 08/25/16 08:59 Last Admin: 06/28/16 09:01 Dose: Not Given Cholecalciferol (Vitamin D3) 2,000 iu PO DAILY [facility] Stop: 08/25/16 08:59 Last Admin: 06/28/16 09:01 Dose: Not Given Enoxaparin Sodium (Lovenox) 30 mg SUBQ Q12HR [facility] Stop: 08/25/16 13:59 Last Admin: 06/28/16 09:00 Dose: 30 mg Piperacillin Sod/Tazobactam (Sod 3.375 gm/ Sodium Chloride) 50 mls @ 100 mls/ hr IV Q8HR [facility] Stop: 08/25/16 04:59 Last Admin: 06/28/16 05:59 Dose: 100 mls/hr Sodium Chloride (Nacl 0.9%) 1,000 mls @ 50 mls/hr IV .Q20H [facility] Stop: 08/25/16 03:14 Last Admin: 06/27/16 20:03 Dose: 50 mls/hr Vancomycin HCl 1 gm/ Sodium (Chloride) 250 mls @ 165 mls/hr IV Q24H [facility] Stop: 08/27/16 09:59 Last Admin: 06/28/16 11:20 Dose: 165 mls/hr Insulin Aspart (Novolog Insulin Sliding Scale) 0 units SUBQ ACHS [facility] PRN Reason: Protocol Stop: 08/25/16 07:29 Last Admin: 06/28/16 12:02 Dose: Not Given Lorazepam (Ativan) 1 mg IVP Q8HR PRN; Protocol PRN Reason: Agitation Stop: 08/26/16 23:27 Last Admin: 06/28/16 10:10 Dose: 1 mg Miscellaneous (Vancomycin Iv Per Pharmacy) 1 ea [facility] DAILY [facility] Stop: 08/27/16 09:59 Morphine Sulfate (Morphine) 1 mg IVP Q4HR PRN PRN Reason: Pain (Severe) Stop: 08/25/16 20:54 Last Admin: 06/28/16 09:00 Dose: 1 mg Nutritional Asmnt/Malnutr-PDOC - Dietary Evaluation Malnutrition Findings (Please click <Entered> for more info): Nutritional Asmnt/Malnutrition Start: 06/26/16 09: 58 Text: Status: Complete Freq: Document 06/26/16 09:58 ROXANNE (Rec: 06/26/16 10:14 ROXANNE LEMONS- FNS1) Nutritional Asmnt/Malnutrition Patient General Information Nutritional Screening High Risk Screening Diagnosis Foot cellulitis (reason for visit) Pertinent Medical Hx/Surgical Hx diabetes and parkinson's disease Subjective Information Patient was transferred to this hospital with foot cellulitis. Patient lying in bed with granddaughter at bedside. Per granddaughter, patient's blood sugar is better controlled at home and doesn't usually go above 200 ( now 335). Patient does not follow a diabetic diet or know what foods affect blood sugar . Provided granddaughter with DM diet education including handouts on food sources of carbohydrates, meal planning and serving sizes. Current Diet Order/ Nutrition Support [facility] Patient / S.O Indicated Pertinent Medications vitamin D, novolog Pertinent Labs (06/26) Na 132, Glucose 346, 335, Albumin 3 Nutritional Hx/Data Height 1.55 m Height (Calculated Centimeters) 154.9 Current Weight (lbs) 64.41 kg Weight (Calculated Kilograms) 64.4 Weight (Calculated Grams) 31611.1 [place] Body Weight 105 % [place] Body Weight 135 Recent Weight Change No Weight Status Overweight GI Symptoms GI Symptoms None Food Allergies No Cultural/Ethnic/Baptist Belief none indicated Usual diet at home regular Skin Integrity/Comment: 3+ non-pitting edema in R Leg, 2+ non-pitting edema in L leg , Kei 18, Estimated Nutritional Goals BEE in Kcals: Using Current wt Calories/Kcals/Kg 25-30 kcal/kg Kcals Calculated 0682-5137 kcal/day Protein: Using Current wt Protein g/k-1.2 gm/kg (wound healing) Protein Calculated 65-75 gm/day Fluid: ml 8948-6891 ml/day Nutritional Problem 2. Problem Problem Food and nutrition related knowledge deficit related to Etiology lack of prior education on DM diet aeb Signs/Symptoms: unable to recognize food sources of carbohydrates. 1. Problem Problem Altered nutrition related lab values related to Etiology uncontrolled hyperglycemia aeb Signs/Symptoms: glucose 346, 335 Intervention/Recommendation Comments 1. Continue 60gm CCHO diet as tolerated by patient. 2. DM diet education provided/ handouts given. 3. MD to continue to adjust insulin regimen for optimal glycemic control. Expected Outcomes/Goals Expected Outcomes/Goals oral intake >75% of meals, glucose improves (80-180), skin integrity improves, weight remains stable.
[2016-06-28] MEDS ORDERED: INSULIN ASPART, RECOMBINANT 100 UNITS/ML SUBQ ONE (14:14)
--- NOTE | 2016-06-28 14:40 | Infectious Disease Prog Note ---
Infectious Disease Subjective - Review of Systems Service Date: 06/28/16 Subjective: [id number] Infectious Disease Objective - Results Result Diagrams: 06/28/16 06:20 06/28/16 06:20 Recent Labs: Laboratory Last Values WBC 13.5 Th/cmm (4.8-10.8) H D 06/28/16 06:20 RBC 4.17 Mil/cmm (3.80-5.20) 06/28/16 06:20 Hgb 12.1 gm/dL (11.7-16.1) 06/28/16 06:20 Hct 36.5 % (35.0-45.0) 06/28/16 06:20 MCV 87.5 fl (81-100) 06/28/16 06:20 MCH 29.1 pg (27.0-31.0) 06/28/16 06:20 MCHC Differential 33.3 pg (28.0-36.0) 06/28/16 06:20 RDW 12.6 % (11.5-20.0) 06/28/16 06:20 Plt Count 285 Th/cmm (150-400) 06/28/16 06:20 MPV 8.2 fl 06/28/16 06:20 Neutrophils % 73.9 % (40.0-80.0) 06/28/16 06:20 Lymphocytes % 18.9 % (20.0-50.0) L 06/28/16 06:20 Monocytes % 6.4 % (2.0-10.0) 06/28/16 06:20 Eosinophils % 0.4 % (0.0-5.0) 06/28/16 06:20 Basophils % 0.4 % (0.0-2.0) 06/28/16 06:20 PT 10.0 SECONDS (9.5-11.5) 06/27/16 06:40 INR 0.96 (0.5-1.4) 06/27/16 06:40 Sodium 134 mEq/L (136-145) L 06/28/16 06:20 Potassium 3.6 mEq/L (3.5-5.1) 06/28/16 06:20 Chloride 102 mEq/L (98-107) 06/28/16 06:20 Carbon Dioxide 23.4 mEq/L (21.0-31.0) 06/28/16 06:20 Anion Gap 12.2 (7.0-16.0) 06/28/16 06:20 BUN 11 mg/dL (7-25) 06/28/16 06:20 Creatinine 0.9 mg/dL (0.6-1.2) 06/28/16 06:20 Est GFR ( Amer) TNP 06/28/16 06:20 Est GFR (Non-Af Amer) TNP 06/28/16 06:20 BUN/Creatinine Ratio 12.2 06/28/16 06:20 Glucose 255 mg/dL (70-105) H 06/28/16 06:20 POC Glucose 243 MG/DL (70 - 105) H 06/28/16 14:11 Hemoglobin A1c % 11.1 % (4.0-6.0) H 06/26/16 06:45 Calcium 8.9 mg/dL (8.6-10.3) 06/28/16 06:20 Total Bilirubin 0.4 mg/dL (0.3-1.0) 06/28/16 06:20 AST 16 U/L (13-39) 06/28/16 06:20 ALT 8 U/L (7-52) 06/28/16 06:20 Alkaline Phosphatase 119 U/L (34-104) H 06/28/16 06:20 Total Protein 6.6 gm/dL (6.0-8.3) 06/28/16 06:20 Albumin 3.1 gm/dL (3.7-5.3) L 06/28/16 06:20 Globulin 3.5 gm/dL 06/28/16 06:20 Albumin/Globulin Ratio 0.9 (1.0-1.8) L 06/28/16 06:20 TSH 1.52 uIU/ml (0.34-5.60) 06/27/16 06:40 - Physical Exam Vitals and I&O: Vital Signs Temp 98.7 F 06/28/16 12:02 Pulse 101 06/28/16 12:02 Resp 19 06/28/16 12:02 BP 166/68 06/28/16 12:02 Pulse Ox 100 06/28/16 12:02 Intake & Output 03/12/17 03/13/17 03/13/17 18:59 06:59 18:59 Intake Total 460 1013.333 Balance 460 1013.333 Intake: Intake, IV Amount 60 1013.333 Piperacillin Sodium/ 60 50 Tazobact 3.375 gm In Sodium Chloride 0.9% 50 ml @ 100 mls/hr IV Q8HR [facility] Rx#:[id number] Sodium Chloride 0.9% 1, 963.333 000 ml @ 50 mls/hr IV . Q20H [facility] Rx#:[id number] Oral 400 Other: # Voids 4 # Bowel Movements 1 Active Medications: Current Medications Acetaminophen (Tylenol) 650 mg PO Q6H PRN PRN Reason: FEVER 101, MILD PAIN Stop: 08/25/16 03:02 Last Admin: 06/27/16 15:12 Dose: 650 mg Carbidopa/Levodopa (Sinemet 25mg-100 Mg) 1 tab PO TID [facility] Stop: 08/25/16 08:59 Last Admin: 06/28/16 09:01 Dose: Not Given Cholecalciferol (Vitamin D3) 2,000 iu PO DAILY [facility] Stop: 08/25/16 08:59 Last Admin: 06/28/16 09:01 Dose: Not Given Enoxaparin Sodium (Lovenox) 30 mg SUBQ Q12HR [facility] Stop: 08/25/16 13:59 Last Admin: 06/28/16 09:00 Dose: 30 mg Piperacillin Sod/Tazobactam (Sod 3.375 gm/ Sodium Chloride) 50 mls @ 100 mls/ hr IV Q8HR [facility] Stop: 08/25/16 04:59 Last Admin: 06/28/16 14:18 Dose: Not Given Sodium Chloride (Nacl 0.9%) 1,000 mls @ 50 mls/hr IV .Q20H [facility] Stop: 08/25/16 03:14 Last Admin: 06/27/16 20:03 Dose: 50 mls/hr Vancomycin HCl 1 gm/ Sodium (Chloride) 250 mls @ 165 mls/hr IV Q24H [facility] Stop: 08/27/16 09:59 Last Admin: 06/28/16 11:20 Dose: 165 mls/hr Insulin Aspart (Novolog Insulin Sliding Scale) 0 units SUBQ ACHS [facility] PRN Reason: Protocol Stop: 08/25/16 07:29 Last Admin: 06/28/16 12:02 Dose: Not Given Insulin Aspart (Novolog) 0 units SUBQ X1 ONE PRN Reason: Protocol Stop: 06/28/16 14:15 Last Admin: 06/28/16 14:19 Dose: 5 units Lorazepam (Ativan) 1 mg IVP Q8HR PRN; Protocol PRN Reason: Agitation Stop: 08/26/16 23:27 Last Admin: 06/28/16 10:10 Dose: 1 mg Miscellaneous (Vancomycin Iv Per Pharmacy) 1 ea [facility] DAILY [facility] Stop: 08/27/16 09:59 Morphine Sulfate (Morphine) 1 mg IVP Q4HR PRN PRN Reason: Pain (Severe) Stop: 08/25/16 20:54 Last Admin: 06/28/16 09:00 Dose: 1 mg Nutritional Asmnt/Malnutr-PDOC - Dietary Evaluation Malnutrition Findings (Please click <Entered> for more info): Nutritional Asmnt/Malnutrition Start: 06/26/16 09: 58 Text: Status: Complete Freq: Document 06/26/16 09:58 ROXANNE (Rec: 06/26/16 10:14 MMCIAT LEMONS- [email or web address]) Nutritional Asmnt/Malnutrition Patient General Information Nutritional Screening High Risk Screening Diagnosis Foot cellulitis (reason for visit) Pertinent Medical Hx/Surgical Hx diabetes and parkinson's disease Subjective Information Patient was transferred to this hospital with foot cellulitis. Patient lying in bed with granddaughter at bedside. Per granddaughter, patient's blood sugar is better controlled at home and doesn't usually go above 200 ( now 335). Patient does not follow a diabetic diet or know what foods affect blood sugar . Provided granddaughter with DM diet education including handouts on food sources of carbohydrates, meal planning and serving sizes. Current Diet Order/ Nutrition Support 60 gm [facility] Patient / S.O Indicated Pertinent Medications vitamin D, novolog Pertinent Labs (06/26) Na 132, Glucose 346, 335, Albumin 3 Nutritional Hx/Data Height 1.55 m Height (Calculated Centimeters) 154.9 Current Weight (lbs) 64.41 kg Weight (Calculated Kilograms) 64.4 Weight (Calculated Grams) 18760.1 [place] Body Weight 105 % [place] Body Weight 135 Recent Weight Change No Weight Status Overweight GI Symptoms GI Symptoms None Food Allergies No Cultural/Ethnic/Jainism Belief none indicated Usual diet at home regular Skin Integrity/Comment: 3+ non-pitting edema in R Leg, 2+ non-pitting edema in L leg , Kei 18, Estimated Nutritional Goals BEE in Kcals: Using Current wt Calories/Kcals/Kg 25-30 kcal/kg Kcals Calculated 8086-8935 kcal/day Protein: Using Current wt Protein g/k-1.2 gm/kg (wound healing) Protein Calculated 65-75 gm/day Fluid: ml 2976-1229 ml/day Nutritional Problem 2. Problem Problem Food and nutrition related knowledge deficit related to Etiology lack of prior education on DM diet aeb Signs/Symptoms: unable to recognize food sources of carbohydrates. 1. Problem Problem Altered nutrition related lab values related to Etiology uncontrolled hyperglycemia aeb Signs/Symptoms: glucose 346, 335 Intervention/Recommendation Comments 1. Continue 60gm CCHO diet as tolerated by patient. 2. DM diet education provided/ handouts given. 3. MD to continue to adjust insulin regimen for optimal glycemic control. Expected Outcomes/Goals Expected Outcomes/Goals oral intake >75% of meals, glucose improves (80-180), skin integrity improves, weight remains stable.
--- NOTE | 2016-06-28 16:18 | Operative Report ---
PREOPERATIVE DIAGNOSES: Right heel ulcer. POSTOPERATIVE DIAGNOSES: 1. Stage IV right heel ulcer. 2. Peripheral vascular disease. 3. Diabetes mellitus. 4. Hypertension. OPERATION DONE: 1. Excisional debridement of right heel ulcer, size 5 x 4 cm, depth to the calcaneus. 2. Application of wound VAC. ANESTHESIA: MAC. ANESTHESIOLOGIST: Khang Slater M.D. ESTIMATED BLOOD LOSS: None. DETAILS OF PROCEDURE: The patient was given IV sedation. The right foot was prepped with Betadine and draped in appropriate manner. A knife was used to completely excise the tissues at the heel, which exposed the calcaneus. This one is size of about a iesha. Cultures were taken. The wound VAC was applied. The patient tolerated the procedure well. JOB# [id number]
--- NOTE | 2016-06-28 17:04 | Diagnostic Imaging Report ---
CT abdomen and pelvis and bilateral lower extremity angiogram History: Peripheral vascular disease Comparison: Bilateral lower terming arterial Doppler on 06/26/2016 Technique: Axial images were obtained from the upper abdomen to the bilateral lower extremity with IV contrast, angiogram protocol. Reconstructions were made. Total DLP 571, CTD I 10 Findings: Exam is limited due to motion. Hypoventilatory atelectatic changes of the lung bases are noted. No evidence of focal hepatic lesions. The patient is status post cholecystectomy. No focal splenic or pancreatic lesions. No focal adrenal lesions. No evidence of hydronephrosis or focal renal lesions. Atrophic uterus is noted. Mild diverticulosis is noted. Evaluation for diverticulitis is limited however no evidence of gross diverticulitis. No free fluid or free air. Degenerative changes of the spine are noted. Degenerative changes of the hip joints and knee joints are also noted. A few pockets of gas are seen along the anterior substance tissues likely due to recent medication injection. Vasculature: Tlee-ee-tqzhywyz atherosclerotic vascular disease of the abdominal aorta and branches are noted. There is 30% narrowing of the origin of the celiac artery. The Superior mesenteric artery is patent. The bilateral renal arteries are also patent. The inferior mesenteric artery origin is also patent. Is mild atherosclerotic vascular disease of the right common iliac artery. Right: The right external iliac artery is patent. There is patency of the right common femoral artery. There are areas of high grade narrowing and possible occlusion along the right mid distal superficial femoral artery extending to the right popliteal artery. Opacification and primarily two-vessel runoff is seen distally with diffuse atherosclerosis.. There is high-grade vessels narrowing along the distal tibioperoneal trunk Left: The left external iliac artery patent. The left common femoral artery is also patent. Areas of high-grade narrowing are seen along the distal left common femoral artery and left popliteal artery. Primarily two-vessel runoff is seen with diffuse atherosclerosis. IMPRESSION: Limited exam due to motion. High-grade atherosclerotic vascular disease with primarily soft plaque involving the bilateral mid to distal distal superficial femoral arteries and popliteal arteries. There is likely almost complete occlusion on the right side in the region of the distal right superficial femoral artery and popliteal artery. Recommend further assessment conventional catheter angiography if indicated Primarily two-vessel runoff is seen bilaterally distally. High-grade narrowing of the distal aspect of the right tibioperoneal trunk. Evidence of prior cholecystectomy Please refer to above report for complete details.
[2016-06-28] MEDS: Sodium Chloride 0.9% 1,000 ML IV SCH (21:05)
[2016-06-29] MEDS: Morphine Sulfate 2 mg/mL 1mL Syr IVP PRN ×4 (02:38→19:50)
--- NOTE | 2016-06-29 04:37 | Consultation ---
REFERRING PHYSICIAN: Dr. Chet Dozier. REASON FOR CONSULTATION: Right heel cellulitis, suspect osteomyelitis and blood culture growing coagulate-negative staphylococcus. HISTORY OF PRESENT ILLNESS: The patient is a 70-year-old female with past medical history of diabetes mellitus type 2, Parkinson disease and peripheral arterial disease presented to [facility] ER for bilateral foot pain. It was getting worse for the last 2 months. She was noted to have redness and wound at pressure point of the right heel. There was also small ulcer on 3rd toe of right foot. On initial evaluation, her temperature was 97.8 degree Fahrenheit and WBC count was 14,600. The patient was transferred to [facility] for insurance purposes. The patient underwent debridement today team coordinator by Dr. Zelaya. It was noted that the infection was deep to the bone and bone was exposed. Besides this the blood culture from [facility] grew coagulase negative staph. ID consult was called for further antibiotic management. Meanwhile, the patient was already started on vancomycin and Zosyn. PAST MEDICAL HISTORY: Includes diabetes mellitus type 2, Parkinson disease and peripheral vascular disease. ALLERGIES: NKDA. MEDICATIONS: As per medication reconciliation sheet. Antibiotic yang, the patient is on vancomycin and Zosyn. SOCIAL HISTORY: The patient lives at home. Denies smoking, alcohol or drug use. FAMILY HISTORY: Not available. REVIEW OF SYSTEMS: GENERAL: The patient denies any fever or chills. HEENT: No diplopia, no photophobia and no sore throat. RESPIRATORY: No cough and no shortness of breath. CARDIOVASCULAR: No chest pain or palpitation. GASTROINTESTINAL: No nausea, no vomiting, no diarrhea and no constipation. GENITOURINARY: No dysuria. NEUROLOGIC: No headache, no dizziness and no focal weakness. SKIN: The patient has had tender swelling of the right heel. It was debrided now and the patient has wound deep to the bone. PHYSICAL EXAMINATION: CURRENT VITAL SIGNS: Shows temperature is 98.7, pulse 101, respirations 19 and blood pressure 166/68. GENERAL: The patient is comfortable lying in the bed, not in acute distress. HEENT: Head is normocephalic and atraumatic. Oral cavity is moist. [place] tongue. Eyes: Pallor is present. No icterus. PERRLA, EOMI. NECK: Supple. No JVD, no carotid bruit. Trachea is in midline. CHEST: Bilateral breath sounds. No crackles or wheezing. HEART: S1 and S2 within normal limits. Regular rhythm. No murmur, no gallop. ABDOMEN: Soft, nontender and nondistended. Bowel sounds present. EXTREMITIES: No cyanosis and no clubbing and no edema. The patient has large wound in the right leg extending to the proximal foot and right heel covered with a wound VAC. NEUROLOGIC: Alert, awake and oriented x 3. LABORATORY DATA: Current lab shows WBC count is 13,500, hemoglobin is 12.1, hematocrit 36.1, platelets are 285,000 and neutrophils 74%. Sodium is 134, potassium 3.6, chloride 102, bicarbonate is 23.4, BUN is 11, creatinine is 0.9 and glucose is 255. IMPRESSION: 1. Right heel cellulitis, likely the patient may have osteomyelitis. 2. Diabetes mellitus type 2. 3. Peripheral vascular disease. 4. Leukocytosis, suspect sepsis. RECOMMENDATIONS: We will continue vancomycin and Zosyn. Depending on the culture report, we will define final antibiotic therapy for 6 weeks. Meanwhile, we will get 3 sets of bone scan and ESR and CRP and repeat blood cultures. The patient may need a PICC line. Thank you Dr. Dozier and Dr. Zelaya for involving me in taking care of this patient. JOB# [id number] ROBYN
[2016-06-29] MEDS: INSULIN ASPART SLIDING SCALE 100 UNITS/ML UNIT SUBQ SCH ×4 (07:18→21:28)
[2016-06-29 07:31] LABS: % BASOPHILS 0.6 % (0.0-2.0); % EOSINOPHILS 0.6 % (0.0-5.0); % LYMPHOCYTES 26.5 % (20.0-50.0); % MONOCYTES 7.5 % (2.0-10.0); % NEUTROPHILS 64.8 % (40.0-80.0); HEMATOCRIT 34.7 % (35.0-45.0); HEMOGLOBIN 11.7 gm/dL (11.7-16.1); MEAN CELL VOLUME 88.6 fl (81-100); MEAN CORPUSCULAR HEMOGLOBIN 29.9 pg (27.0-31.0); MEAN CORPUSCULAR HGB CONC 33.8 pg (28.0-36.0); MEAN PLATELET VOLUME 8.3 fl; PLATELET COUNT 317 Th/cmm (150-400); RED BLOOD COUNT 3.92 Mil/cmm (3.80-5.20); RED CELL DISTRIBUTION WIDTH 12.9 % (11.5-20.0)
[2016-06-29 07:35] LABS: ALB/GLOB RATIO 0.9 (1.0-1.8); ALKALINE PHOSPHATASE 105 U/L (34-104); BILIRUBIN,TOTAL 0.5 mg/dL (0.3-1.0); BUN - UREA NITROGEN 13 mg/dL (7-25); BUN/CREATININE RATIO 11.8; CALCIUM SERUM 8.5 mg/dL (8.6-10.3); CARBON DIOXIDE 21.2 mEq/L (21.0-31.0); CHLORIDE 105 mEq/L (98-107); CREATININE - SERUM 1.1 mg/dL (0.6-1.2); GLUCOSE 179 mg/dL (70-105); POTASSIUM SERUM 3.2 mEq/L (3.5-5.1); SGOT 14 U/L (13-39); SGPT/ALT 4 U/L (7-52); SODIUM SERUM 140 mEq/L (136-145)
[2016-06-29 08:42] LABS: WHITE BLOOD COUNT 13.9 Th/cmm (4.8-10.8)
[2016-06-29] MEDS: Enoxaparin 30 mg/0.3 mL 0.3mL Syr SUBQ SCH ×2 (08:52→20:50)
--- NOTE | 2016-06-29 09:04 | General Progress Note ---
Subjective - Review of Systems Service Date: 06/29/14 Subjective: I have leg pain Objective - Results Result Diagrams: 06/29/16 06:00 06/29/16 06:00 Recent Labs: Laboratory Last Values WBC 13.9 Th/cmm (4.8-10.8) H 06/29/16 06:00 RBC 3.92 Mil/cmm (3.80-5.20) 06/29/16 06:00 Hgb 11.7 gm/dL (11.7-16.1) 06/29/16 06:00 Hct 34.7 % (35.0-45.0) L 06/29/16 06:00 MCV 88.6 fl (81-100) 06/29/16 06:00 MCH 29.9 pg (27.0-31.0) 06/29/16 06:00 MCHC Differential 33.8 pg (28.0-36.0) 06/29/16 06:00 RDW 12.9 % (11.5-20.0) 06/29/16 06:00 Plt Count 317 Th/cmm (150-400) 06/29/16 06:00 MPV 8.3 fl 06/29/16 06:00 Neutrophils % 64.8 % (40.0-80.0) 06/29/16 06:00 Lymphocytes % 26.5 % (20.0-50.0) 06/29/16 06:00 Monocytes % 7.5 % (2.0-10.0) 06/29/16 06:00 Eosinophils % 0.6 % (0.0-5.0) 06/29/16 06:00 Basophils % 0.6 % (0.0-2.0) 06/29/16 06:00 PT 10.0 SECONDS (9.5-11.5) 06/27/16 06:40 INR 0.96 (0.5-1.4) 06/27/16 06:40 Sodium 140 mEq/L (136-145) 06/29/16 06:00 Potassium 3.2 mEq/L (3.5-5.1) L 06/29/16 06:00 Chloride 105 mEq/L (98-107) 06/29/16 06:00 Carbon Dioxide 21.2 mEq/L (21.0-31.0) 06/29/16 06:00 Anion Gap 17.0 (7.0-16.0) H 06/29/16 06:00 BUN 13 mg/dL (7-25) 06/29/16 06:00 Creatinine 1.1 mg/dL (0.6-1.2) 06/29/16 06:00 Est GFR ( Amer) TNP 06/29/16 06:00 Est GFR (Non-Af Amer) TNP 06/29/16 06:00 BUN/Creatinine Ratio 11.8 06/29/16 06:00 Glucose 179 mg/dL (70-105) H 06/29/16 06:00 POC Glucose 215 MG/DL (70 - 105) H 06/29/16 07:03 Hemoglobin A1c % 11.1 % (4.0-6.0) H 06/26/16 06:45 Calcium 8.5 mg/dL (8.6-10.3) L 06/29/16 06:00 Total Bilirubin 0.5 mg/dL (0.3-1.0) 06/29/16 06:00 AST 14 U/L (13-39) 06/29/16 06:00 ALT 4 U/L (7-52) L 06/29/16 06:00 Alkaline Phosphatase 105 U/L (34-104) H 06/29/16 06:00 Total Protein 6.3 gm/dL (6.0-8.3) 06/29/16 06:00 Albumin 2.9 gm/dL (3.7-5.3) L 06/29/16 06:00 Globulin 3.4 gm/dL 06/29/16 06:00 Albumin/Globulin Ratio 0.9 (1.0-1.8) L 06/29/16 06:00 TSH 1.52 uIU/ml (0.34-5.60) 06/27/16 06:40 - Physical Exam Vitals and I&O: Vital Signs Temp 99.2 F 06/29/16 08:00 Pulse 101 06/29/16 08:00 Resp 20 06/29/16 08:00 BP 145/84 06/29/16 08:00 Pulse Ox 95 06/29/16 08:00 Intake & Output 06/28/16 06/29/16 06/29/16 18:59 06:59 18:59 Intake Total 1300 100 Balance 1300 100 Intake: Intake, IV Amount 1300 100 Piperacillin Sodium/ 50 100 Tazobact 3.375 gm In Sodium Chloride 0.9% 50 ml @ 100 mls/hr IV Q8HR [facility] Rx#:[id number] Sodium Chloride 0.9% 1, 1000 000 ml @ 50 mls/hr IV . Q20H [facility] Rx#:[id number] Vancomycin HCl 1 gm In 250 Sodium Chloride 0.9% 250 ml @ 165 mls/hr IV Q24H [facility] Rx#:[id number] Active Medications: Current Medications Acetaminophen (Tylenol) 650 mg PO Q6H PRN PRN Reason: FEVER 101, MILD PAIN Stop: 08/25/16 03:02 Last Admin: 06/27/16 15:12 Dose: 650 mg Carbidopa/Levodopa (Sinemet 25mg-100 Mg) 1 tab PO TID [facility] Stop: 08/25/16 08:59 Last Admin: 06/29/16 08:52 Dose: 1 tab Cholecalciferol (Vitamin D3) 2,000 iu PO DAILY [facility] Stop: 08/25/16 08:59 Last Admin: 06/29/16 08:52 Dose: 2,000 iu Enoxaparin Sodium (Lovenox) 30 mg SUBQ Q12HR [facility] Stop: 08/25/16 13:59 Last Admin: 06/29/16 08:52 Dose: 30 mg Piperacillin Sod/Tazobactam (Sod 3.375 gm/ Sodium Chloride) 50 mls @ 100 mls/ hr IV Q8HR [facility] Stop: 08/25/16 04:59 Last Infusion: 06/29/16 05:48 Dose: Infused Sodium Chloride (Nacl 0.9%) 1,000 mls @ 50 mls/hr IV .Q20H [facility] Stop: 08/25/16 03:14 Last Admin: 06/28/16 21:05 Dose: 50 mls/hr Vancomycin HCl 1 gm/ Sodium (Chloride) 250 mls @ 165 mls/hr IV Q24H [facility] Stop: 08/27/16 09:59 Last Infusion: 06/28/16 12:51 Dose: Infused Insulin Aspart (Novolog Insulin Sliding Scale) 0 units SUBQ ACHS [facility] PRN Reason: Protocol Stop: 08/25/16 07:29 Last Admin: 06/29/16 07:18 Dose: 5 units Lorazepam (Ativan) 1 mg IVP Q8HR PRN; Protocol PRN Reason: Agitation Stop: 08/26/16 23:27 Last Admin: 06/28/16 10:10 Dose: 1 mg Miscellaneous (Vancomycin Iv Per Pharmacy) 1 ea [facility] DAILY [facility] Stop: 08/27/16 09:59 Morphine Sulfate (Morphine) 1 mg IVP Q4HR PRN PRN Reason: Pain (Severe) Stop: 08/25/16 20:54 Last Admin: 06/29/16 02:38 Dose: 1 mg General: Alert, Mild distress, Other (Confused) HEENT: Atraumatic Neck: Supple Cardiovascular: Regular rate Lungs: Clear to auscultation Abdomen: Bowel sounds, Soft Extremities: Other (Suction in right leg) Neurological: Other (Non ambulatory) Skin: Other (Ulcer cover with pamella.) Psych/Mental Status: Other (Some confusion) Assessment/Plan - Assessment Assessment: Patient is awake, calm, confused in some distress due to pain. Today WBC is high. CT angio shows plaques in both legs to different levels. - Plan Plan: Case is discussed with family and explain poor prognosis. Case will be discussed with surgeon. ID involved. Will continue to monitor. Nutritional Asmnt/Malnutr-PDOC - Dietary Evaluation Malnutrition Findings (Please click <Entered> for more info): Nutritional Asmnt/Malnutrition Start: 06/26/16 09: 58 Text: Status: Complete Freq: Document 06/26/16 09:58 ROXANNE (Rec: 06/26/16 10:14 MMCAIT LEMONS- FNS1) Nutritional Asmnt/Malnutrition Patient General Information Nutritional Screening High Risk Screening Diagnosis Foot cellulitis (reason for visit) Pertinent Medical Hx/Surgical Hx diabetes and parkinson's disease Subjective Information Patient was transferred to this hospital with foot cellulitis. Patient lying in bed with granddaughter at bedside. Per granddaughter, patient's blood sugar is better controlled at home and doesn't usually go above 200 ( now 335). Patient does not follow a diabetic diet or know what foods affect blood sugar . Provided granddaughter with DM diet education including handouts on food sources of carbohydrates, meal planning and serving sizes. Current Diet Order/ Nutrition Support [facility] / S.O Indicated Pertinent Medications vitamin D, novolog Pertinent Labs (06/26) Na 132, Glucose 346, 335, Albumin 3 Nutritional Hx/Data Height 1.55 m Height (Calculated Centimeters) 154.9 Current Weight (lbs) 64.41 kg Weight (Calculated Kilograms) 64.4 Weight (Calculated Grams) 50687.1 [place] Body Weight 105 % [place] Body Weight 135 Recent Weight Change No Weight Status Overweight GI Symptoms GI Symptoms None Food Allergies No Cultural/Ethnic/Episcopal Belief none indicated Usual diet at home regular Skin Integrity/Comment: 3+ non-pitting edema in R Leg, 2+ non-pitting edema in L leg , Kei 18, Estimated Nutritional Goals BEE in Kcals: Using Current wt Calories/Kcals/Kg 25-30 kcal/kg Kcals Calculated 7856-1285 kcal/day Protein: Using Current wt Protein g/k-1.2 gm/kg (wound healing) Protein Calculated 65-75 gm/day Fluid: ml 8824-2056 ml/day Nutritional Problem 2. Problem Problem Food and nutrition related knowledge deficit related to Etiology lack of prior education on DM diet aeb Signs/Symptoms: unable to recognize food sources of carbohydrates. 1. Problem Problem Altered nutrition related lab values related to Etiology uncontrolled hyperglycemia aeb Signs/Symptoms: glucose 346, 335 Intervention/Recommendation Comments 1. Continue 60gm CCHO diet as tolerated by patient. 2. DM diet education provided/ handouts given. 3. MD to continue to adjust insulin regimen for optimal glycemic control. Expected Outcomes/Goals Expected Outcomes/Goals oral intake >75% of meals, glucose improves (80-180), skin integrity improves, weight remains stable.
--- NOTE | 2016-06-29 10:51 | Infectious Disease Prog Note ---
Infectious Disease Subjective - Review of Systems Service Date: 06/29/16 Subjective: There is no new change, there is no fever. Infectious Disease Objective - Results Result Diagrams: 06/30/16 06:05 06/30/16 06:05 Recent Labs: Laboratory Last Values WBC 13.9 Th/cmm (4.8-10.8) H 06/29/16 06:00 RBC 3.92 Mil/cmm (3.80-5.20) 06/29/16 06:00 Hgb 11.7 gm/dL (11.7-16.1) 06/29/16 06:00 Hct 34.7 % (35.0-45.0) L 06/29/16 06:00 MCV 88.6 fl (81-100) 06/29/16 06:00 MCH 29.9 pg (27.0-31.0) 06/29/16 06:00 MCHC Differential 33.8 pg (28.0-36.0) 06/29/16 06:00 RDW 12.9 % (11.5-20.0) 06/29/16 06:00 Plt Count 317 Th/cmm (150-400) 06/29/16 06:00 MPV 8.3 fl 06/29/16 06:00 Neutrophils % 64.8 % (40.0-80.0) 06/29/16 06:00 Lymphocytes % 26.5 % (20.0-50.0) 06/29/16 06:00 Monocytes % 7.5 % (2.0-10.0) 06/29/16 06:00 Eosinophils % 0.6 % (0.0-5.0) 06/29/16 06:00 Basophils % 0.6 % (0.0-2.0) 06/29/16 06:00 ESR 69 mm/hr (0-30) H 06/29/16 06:00 PT 10.0 SECONDS (9.5-11.5) 06/27/16 06:40 INR 0.96 (0.5-1.4) 06/27/16 06:40 Sodium 140 mEq/L (136-145) 06/29/16 06:00 Potassium 3.2 mEq/L (3.5-5.1) L 06/29/16 06:00 Chloride 105 mEq/L (98-107) 06/29/16 06:00 Carbon Dioxide 21.2 mEq/L (21.0-31.0) 06/29/16 06:00 Anion Gap 17.0 (7.0-16.0) H 06/29/16 06:00 BUN 13 mg/dL (7-25) 06/29/16 06:00 Creatinine 1.1 mg/dL (0.6-1.2) 06/29/16 06:00 Est GFR ( Amer) TNP 06/29/16 06:00 Est GFR (Non-Af Amer) TNP 06/29/16 06:00 BUN/Creatinine Ratio 11.8 06/29/16 06:00 Glucose 179 mg/dL (70-105) H 06/29/16 06:00 POC Glucose 215 MG/DL (70 - 105) H 06/29/16 07:03 Hemoglobin A1c % 11.1 % (4.0-6.0) H 06/26/16 06:45 Calcium 8.5 mg/dL (8.6-10.3) L 06/29/16 06:00 Total Bilirubin 0.5 mg/dL (0.3-1.0) 06/29/16 06:00 AST 14 U/L (13-39) 06/29/16 06:00 ALT 4 U/L (7-52) L 06/29/16 06:00 Alkaline Phosphatase 105 U/L (34-104) H 06/29/16 06:00 Total Protein 6.3 gm/dL (6.0-8.3) 06/29/16 06:00 Albumin 2.9 gm/dL (3.7-5.3) L 06/29/16 06:00 Globulin 3.4 gm/dL 06/29/16 06:00 Albumin/Globulin Ratio 0.9 (1.0-1.8) L 06/29/16 06:00 TSH 1.52 uIU/ml (0.34-5.60) 06/27/16 06:40 - Physical Exam Vitals and I&O: Vital Signs Temp 99.2 F 06/29/16 08:00 Pulse 101 06/29/16 08:00 Resp 20 06/29/16 08:00 BP 145/84 06/29/16 08:00 Pulse Ox 95 06/29/16 08:00 Intake & Output 06/28/16 06/29/16 06/29/16 18:59 06:59 18:59 Intake Total 1300 100 Balance 1300 100 Intake: Intake, IV Amount 1300 100 Piperacillin Sodium/ 50 100 Tazobact 3.375 gm In Sodium Chloride 0.9% 50 ml @ 100 mls/hr IV Q8HR [facility] Rx#:[id number] Sodium Chloride 0.9% 1, 1000 000 ml @ 50 mls/hr IV . Q20H [facility] Rx#:[id number] Vancomycin HCl 1 gm In 250 Sodium Chloride 0.9% 250 ml @ 165 mls/hr IV Q24H [facility] Rx#:[id number] Active Medications: Current Medications Acetaminophen (Tylenol) 650 mg PO Q6H PRN PRN Reason: FEVER 101, MILD PAIN Stop: 08/25/16 03:02 Last Admin: 06/27/16 15:12 Dose: 650 mg Carbidopa/Levodopa (Sinemet 25mg-100 Mg) 1 tab PO TID [facility] Stop: 08/25/16 08:59 Last Admin: 06/29/16 08:52 Dose: 1 tab Cholecalciferol (Vitamin D3) 2,000 iu PO DAILY [facility] Stop: 08/25/16 08:59 Last Admin: 06/29/16 08:52 Dose: 2,000 iu Enoxaparin Sodium (Lovenox) 30 mg SUBQ Q12HR [facility] Stop: 08/25/16 13:59 Last Admin: 06/29/16 08:52 Dose: 30 mg Piperacillin Sod/Tazobactam (Sod 3.375 gm/ Sodium Chloride) 50 mls @ 100 mls/ hr IV Q8HR [facility] Stop: 08/25/16 04:59 Last Infusion: 06/29/16 05:48 Dose: Infused Sodium Chloride (Nacl 0.9%) 1,000 mls @ 50 mls/hr IV .Q20H [facility] Stop: 08/25/16 03:14 Last Admin: 06/28/16 21:05 Dose: 50 mls/hr Vancomycin HCl 1 gm/ Sodium (Chloride) 250 mls @ 165 mls/hr IV Q24H [facility] Stop: 08/27/16 09:59 Last Infusion: 06/28/16 12:51 Dose: Infused Insulin Aspart (Novolog Insulin Sliding Scale) 0 units SUBQ ACHS SIRISHA PRN Reason: Protocol Stop: 08/25/16 07:29 Last Admin: 06/29/16 07:18 Dose: 5 units Lorazepam (Ativan) 1 mg IVP Q8HR PRN; Protocol PRN Reason: Agitation Stop: 08/26/16 23:27 Last Admin: 06/28/16 10:10 Dose: 1 mg Miscellaneous (Vancomycin Iv Per Pharmacy) 1 ea [facility] DAILY [facility] Stop: 08/27/16 09:59 Morphine Sulfate (Morphine) 1 mg IVP Q4HR PRN PRN Reason: Pain (Severe) Stop: 08/25/16 20:54 Last Admin: 06/29/16 09:36 Dose: 1 mg General: no acute distress, well developed, well nourished HEENT: atraumatic, normocephalic, PERRLA, EOMI Neck: supple Cardiovascular: S1S2, regular Lungs: clear to auscultation bilaterally, clear to percussion Abdomen: soft, no tender, no distended Extremities: other (Right foot and heel woound with wound vac), no cyanosis, no clubbing, no edema Neurological: awake, alert, oriented, CN 2-12 intact Skin: intact Infectious Disease Assmt/Plan - Assessment Assessment: Impression: 1. Right heel and foot ulcer with bone exposed. 2. PAD. 3. DM2. Recommendations: Will continue same treatment. Wait for the 3 phase bone scan. Patient may need manager terminal antibiotic therapy. Nutritional Asmnt/Malnutr-PDOC - Dietary Evaluation Malnutrition Findings (Please click <Entered> for more info): Nutritional Asmnt/Malnutrition Start: 06/26/16 09: 58 Text: Status: Complete Freq: Document 06/26/16 09:58 ROXANNE (Rec: 06/26/16 10:14 ROXANNE LEMONS- FNS1) Nutritional Asmnt/Malnutrition Patient General Information Nutritional Screening High Risk Screening Diagnosis Foot cellulitis (reason for visit) Pertinent Medical Hx/Surgical Hx diabetes and parkinson's disease Subjective Information Patient was transferred to this hospital with foot cellulitis. Patient lying in bed with granddaughter at bedside. Per granddaughter, patient's blood sugar is better controlled at home and doesn't usually go above 200 ( now 335). Patient does not follow a diabetic diet or know what foods affect blood sugar . Provided granddaughter with DM diet education including handouts on food sources of carbohydrates, meal planning and serving sizes. Current Diet Order/ Nutrition Support 60 gm CCHO Patient / S.O Indicated Pertinent Medications vitamin D, novolog Pertinent Labs (06/26) Na 132, Glucose 346, 335, Albumin 3 Nutritional Hx/Data Height 1.55 m Height (Calculated Centimeters) 154.9 Current Weight (lbs) 64.41 kg Weight (Calculated Kilograms) 64.4 Weight (Calculated Grams) 63625.1 [place] Body Weight 105 % [place] Body Weight 135 Recent Weight Change No Weight Status Overweight GI Symptoms GI Symptoms None Food Allergies No Cultural/Ethnic/Zoroastrianism Belief none indicated Usual diet at home regular Skin Integrity/Comment: 3+ non-pitting edema in R Leg, 2+ non-pitting edema in L leg , Kei 18, Estimated Nutritional Goals BEE in Kcals: Using Current wt Calories/Kcals/Kg 25-30 kcal/kg Kcals Calculated 6346-2699 kcal/day Protein: Using Current wt Protein g/k-1.2 gm/kg (wound healing) Protein Calculated 65-75 gm/day Fluid: ml 1611-2076 ml/day Nutritional Problem 2. Problem Problem Food and nutrition related knowledge deficit related to Etiology lack of prior education on DM diet aeb Signs/Symptoms: unable to recognize food sources of carbohydrates. 1. Problem Problem Altered nutrition related lab values related to Etiology uncontrolled hyperglycemia aeb Signs/Symptoms: glucose 346, 335 Intervention/Recommendation Comments 1. Continue 60gm CCHO diet as tolerated by patient. 2. DM diet education provided/ handouts given. 3. MD to continue to adjust insulin regimen for optimal glycemic control. Expected Outcomes/Goals Expected Outcomes/Goals oral intake >75% of meals, glucose improves (80-180), skin integrity improves, weight remains stable.
--- NOTE | 2016-06-29 12:36 | General Progress Note ---
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 discussed fem-pop bypass with son via phone will schedule for surgery in AM Objective - Results Result Diagrams: 06/29/16 06:00 06/29/16 06:00 Recent Labs: Laboratory Last Values WBC 13.9 Th/cmm (4.8-10.8) H 06/29/16 06:00 RBC 3.92 Mil/cmm (3.80-5.20) 06/29/16 06:00 Hgb 11.7 gm/dL (11.7-16.1) 06/29/16 06:00 Hct 34.7 % (35.0-45.0) L 06/29/16 06:00 MCV 88.6 fl (81-100) 06/29/16 06:00 MCH 29.9 pg (27.0-31.0) 06/29/16 06:00 MCHC Differential 33.8 pg (28.0-36.0) 06/29/16 06:00 RDW 12.9 % (11.5-20.0) 06/29/16 06:00 Plt Count 317 Th/cmm (150-400) 06/29/16 06:00 MPV 8.3 fl 06/29/16 06:00 Neutrophils % 64.8 % (40.0-80.0) 06/29/16 06:00 Lymphocytes % 26.5 % (20.0-50.0) 06/29/16 06:00 Monocytes % 7.5 % (2.0-10.0) 06/29/16 06:00 Eosinophils % 0.6 % (0.0-5.0) 06/29/16 06:00 Basophils % 0.6 % (0.0-2.0) 06/29/16 06:00 ESR 69 mm/hr (0-30) H 06/29/16 06:00 PT 10.0 SECONDS (9.5-11.5) 06/27/16 06:40 INR 0.96 (0.5-1.4) 06/27/16 06:40 Sodium 140 mEq/L (136-145) 06/29/16 06:00 Potassium 3.2 mEq/L (3.5-5.1) L 06/29/16 06:00 Chloride 105 mEq/L (98-107) 06/29/16 06:00 Carbon Dioxide 21.2 mEq/L (21.0-31.0) 06/29/16 06:00 Anion Gap 17.0 (7.0-16.0) H 06/29/16 06:00 BUN 13 mg/dL (7-25) 06/29/16 06:00 Creatinine 1.1 mg/dL (0.6-1.2) 06/29/16 06:00 Est GFR ( Amer) TNP 06/29/16 06:00 Est GFR (Non-Af Amer) TNP 06/29/16 06:00 BUN/Creatinine Ratio 11.8 06/29/16 06:00 Glucose 179 mg/dL (70-105) H 06/29/16 06:00 POC Glucose 320 MG/DL (70 - 105) H 06/29/16 11:34 Hemoglobin A1c % 11.1 % (4.0-6.0) H 06/26/16 06:45 Calcium 8.5 mg/dL (8.6-10.3) L 06/29/16 06:00 Total Bilirubin 0.5 mg/dL (0.3-1.0) 06/29/16 06:00 AST 14 U/L (13-39) 06/29/16 06:00 ALT 4 U/L (7-52) L 06/29/16 06:00 Alkaline Phosphatase 105 U/L (34-104) H 06/29/16 06:00 Total Protein 6.3 gm/dL (6.0-8.3) 06/29/16 06:00 Albumin 2.9 gm/dL (3.7-5.3) L 06/29/16 06:00 Globulin 3.4 gm/dL 06/29/16 06:00 Albumin/Globulin Ratio 0.9 (1.0-1.8) L 06/29/16 06:00 TSH 1.52 uIU/ml (0.34-5.60) 06/27/16 06:40 - Physical Exam Vitals and I&O: Vital Signs Temp 99.1 F 06/29/16 11:53 Pulse 95 06/29/16 11:53 Resp 18 06/29/16 11:53 BP 166/79 06/29/16 11:53 Pulse Ox 95 06/29/16 11:53 Intake & Output 06/28/16 06/29/16 06/29/16 18:59 06:59 18:59 Intake Total 1300 100 Balance 1300 100 Intake: Intake, IV Amount 1300 100 Piperacillin Sodium/ 50 100 Tazobact 3.375 gm In Sodium Chloride 0.9% 50 ml @ 100 mls/hr IV Q8HR [facility] Rx#:[id number] Sodium Chloride 0.9% 1, 1000 000 ml @ 50 mls/hr IV . Q20H [facility] Rx#:[id number] Vancomycin HCl 1 gm In 250 Sodium Chloride 0.9% 250 ml @ 165 mls/hr IV Q24H [facility] Rx#:[id number] Active Medications: Current Medications Acetaminophen (Tylenol) 650 mg PO Q6H PRN PRN Reason: FEVER 101, MILD PAIN Stop: 08/25/16 03:02 Last Admin: 06/27/16 15:12 Dose: 650 mg Carbidopa/Levodopa (Sinemet 25mg-100 Mg) 1 tab PO TID [facility] Stop: 08/25/16 08:59 Last Admin: 06/29/16 08:52 Dose: 1 tab Cholecalciferol (Vitamin D3) 2,000 iu PO DAILY [facility] Stop: 08/25/16 08:59 Last Admin: 06/29/16 08:52 Dose: 2,000 iu Enoxaparin Sodium (Lovenox) 30 mg SUBQ Q12HR [facility] Stop: 08/25/16 13:59 Last Admin: 06/29/16 08:52 Dose: 30 mg Piperacillin Sod/Tazobactam (Sod 3.375 gm/ Sodium Chloride) 50 mls @ 100 mls/ hr IV Q8HR [facility] Stop: 08/25/16 04:59 Last Infusion: 06/29/16 05:48 Dose: Infused Sodium Chloride (Nacl 0.9%) 1,000 mls @ 50 mls/hr IV .Q20H [facility] Stop: 08/25/16 03:14 Last Admin: 06/28/16 21:05 Dose: 50 mls/hr Vancomycin HCl 1 gm/ Sodium (Chloride) 250 mls @ 165 mls/hr IV Q24H [facility] Stop: 08/27/16 09:59 Last Admin: 06/29/16 11:00 Dose: 100 mls/hr Potassium Chloride 40 meq/Lidocaine HCl 25 mg/ Sodium Chloride 272.5 mls @ 68 mls/hr IV X1 ONE Stop: 06/29/16 16:33 Insulin Aspart (Novolog Insulin Sliding Scale) 0 units SUBQ ACHS SIRISHA PRN Reason: Protocol Stop: 08/25/16 07:29 Last Admin: 06/29/16 11:42 Dose: 9 units Lorazepam (Ativan) 1 mg IVP Q8HR PRN; Protocol PRN Reason: Agitation Stop: 08/26/16 23:27 Last Admin: 06/28/16 10:10 Dose: 1 mg Miscellaneous (Vancomycin Iv Per Pharmacy) 1 ea [facility] DAILY [facility] Stop: 08/27/16 09:59 Morphine Sulfate (Morphine) 1 mg IVP Q4HR PRN PRN Reason: Pain (Severe) Stop: 08/25/16 20:54 Last Admin: 06/29/16 09:36 Dose: 1 mg Nutritional Asmnt/Malnutr-PDOC - Dietary Evaluation Malnutrition Findings (Please click <Entered> for more info): Nutritional Asmnt/Malnutrition Start: 06/26/16 09: 58 Text: Status: Complete Freq: Document 06/26/16 09:58 ROXANNE (Rec: 06/26/16 10:14 ROXANNE LEMONS- FNS1) Nutritional Asmnt/Malnutrition Patient General Information Nutritional Screening High Risk Screening Diagnosis Foot cellulitis (reason for visit) Pertinent Medical Hx/Surgical Hx diabetes and parkinson's disease Subjective Information Patient was transferred to this hospital with foot cellulitis. Patient lying in bed with granddaughter at bedside. Per granddaughter, patient's blood sugar is better controlled at home and doesn't usually go above 200 ( now 335). Patient does not follow a diabetic diet or know what foods affect blood sugar . Provided granddaughter with DM diet education including handouts on food sources of carbohydrates, meal planning and serving sizes. Current Diet Order/ Nutrition [facility] / S.O Indicated Pertinent Medications vitamin D, novolog Pertinent Labs (06/26) Na 132, Glucose 346, 335, Albumin 3 Nutritional Hx/Data Height 1.55 m Height (Calculated Centimeters) 154.9 Current Weight (lbs) 64.41 kg Weight (Calculated Kilograms) 64.4 Weight (Calculated Grams) 29960.1 [place] Body Weight 105 % [place] Body Weight 135 Recent Weight Change No Weight Status Overweight GI Symptoms GI Symptoms None Food Allergies No Cultural/Ethnic/Baptism Belief none indicated Usual diet at home regular Skin Integrity/Comment: 3+ non-pitting edema in R Leg, 2+ non-pitting edema in L leg , Kei 18, Estimated Nutritional Goals BEE in Kcals: Using Current wt Calories/Kcals/Kg 25-30 kcal/kg Kcals Calculated 2287-7385 kcal/day Protein: Using Current wt Protein g/k-1.2 gm/kg (wound healing) Protein Calculated 65-75 gm/day Fluid: ml 0906-0387 ml/day Nutritional Problem 2. Problem Problem Food and nutrition related knowledge deficit related to Etiology lack of prior education on DM diet aeb Signs/Symptoms: unable to recognize food sources of carbohydrates. 1. Problem Problem Altered nutrition related lab values related to Etiology uncontrolled hyperglycemia aeb Signs/Symptoms: glucose 346, 335 Intervention/Recommendation Comments 1. Continue 60gm CCHO diet as tolerated by patient. 2. DM diet education provided/ handouts given. 3. MD to continue to adjust insulin regimen for optimal glycemic control. Expected Outcomes/Goals Expected Outcomes/Goals oral intake >75% of meals, glucose improves (80-180), skin integrity improves, weight remains stable.
[2016-06-29] MEDS ORDERED: Potassium Chloride 40 MEQ, Lidocaine 1% 20mL Vial 25 MG in Sodium Chloride 0.9% 250 ML IV ONE (13:00)
--- NOTE | 2016-06-29 13:27 | Diagnostic Imaging Report ---
Radionuclide 3 phase bone scan of the feet HISTORY: Osteomyelitis 20.0 mCi technetium MDP was used in the exam. Initial perfusion and subsequent blood pool and delayed images were obtained. Exam is for limited and suboptimal due to inability of the patient cooperation and limited mobility. Initial perfusion images are unremarkable with no definite abnormal focus of increased activity. Blood pool and delayed images also do not demonstrate a significant focus of abnormal increased activity. There is specifically no definite scintigraphic evidence of osteomyelitis. IMPRESSION: 1. Limited exam due to lack of patient cooperation 2. No definite scintigraphic evidence of osteomyelitis. Correlation with plain radiographs recommended.
[2016-06-30] MEDS: Morphine Sulfate 2 mg/mL 1mL Syr IVP PRN ×4 (00:58→20:55)
[2016-06-30] MEDS: Sodium Chloride 0.9% 1,000 ML IV SCH (00:58)
[2016-06-30 06:31] LABS: % BASOPHILS 1.1 % (0.0-2.0); % EOSINOPHILS 0.5 % (0.0-5.0); % LYMPHOCYTES 15.6 % (20.0-50.0); % MONOCYTES 4.9 % (2.0-10.0); % NEUTROPHILS 77.9 % (40.0-80.0); HEMATOCRIT 36.7 % (35.0-45.0); HEMOGLOBIN 12.2 gm/dL (11.7-16.1); MEAN CELL VOLUME 88.7 fl (81-100); MEAN CORPUSCULAR HEMOGLOBIN 29.6 pg (27.0-31.0); MEAN CORPUSCULAR HGB CONC 33.3 pg (28.0-36.0); MEAN PLATELET VOLUME 7.9 fl; NEUTROPHILE ABSOLUTE 10.3 Th/cmm (1.8-8.0); PLATELET COUNT 309 Th/cmm (150-400); RED BLOOD COUNT 4.13 Mil/cmm (3.80-5.20); RED CELL DISTRIBUTION WIDTH 12.9 % (11.5-20.0)
[2016-06-30 06:37] LABS: PROTHROMBIN TIME (TEST) 10.4 SECONDS (9.5-11.5)
[2016-06-30 06:41] LABS: ALB/GLOB RATIO 0.9 (1.0-1.8); ALKALINE PHOSPHATASE 104 U/L (34-104); ANION GAP 12.4 (7.0-16.0); BILIRUBIN,TOTAL 0.5 mg/dL (0.3-1.0); BUN - UREA NITROGEN 13 mg/dL (7-25); CARBON DIOXIDE 22.9 mEq/L (21.0-31.0); CHLORIDE 108 mEq/L (98-107); CREATININE - SERUM 1.3 mg/dL (0.6-1.2); GLUCOSE 254 mg/dL (70-105); POTASSIUM SERUM 3.3 mEq/L (3.5-5.1); SGOT 17 U/L (13-39); SGPT/ALT 3 U/L (7-52); SODIUM SERUM 140 mEq/L (136-145)
[2016-06-30] MEDS: INSULIN ASPART SLIDING SCALE 100 UNITS/ML UNIT SUBQ SCH ×4 (06:58→21:00)
[2016-06-30] MEDS ORDERED: Thrombin, Bovine 5,000 IU Vial TP ONE (07:11)
[2016-06-30] MEDS ORDERED: [UNRECOGNIZED DRUG - OTHER] TP ONE (07:13)
[2016-06-30] MEDS ORDERED: Midazolam 1mg/ml 2 ml vial IV ONE (07:45)
[2016-06-30 07:48] LABS: WHITE BLOOD COUNT 13.2 Th/cmm (4.8-10.8)
[2016-06-30] MEDS ORDERED: Meperidine 25 mg/mL 1mL Syr IVP PRN (08:14)
[2016-06-30] MEDS ORDERED: Lactated Ringer 1,000 ML IV SCH (08:15)
--- NOTE | 2016-06-30 08:54 | General Progress Note ---
Subjective - Review of Systems Service Date: 06/30/16 Subjective: I have leg pain Objective - Results Result Diagrams: 06/30/16 06:05 06/30/16 06:05 Recent Labs: Laboratory Last Values WBC 13.2 Th/cmm (4.8-10.8) H 06/30/16 06:05 RBC 4.13 Mil/cmm (3.80-5.20) 06/30/16 06:05 Hgb 12.2 gm/dL (11.7-16.1) 06/30/16 06:05 Hct 36.7 % (35.0-45.0) 06/30/16 06:05 MCV 88.7 fl (81-100) 06/30/16 06:05 MCH 29.6 pg (27.0-31.0) 06/30/16 06:05 MCHC Differential 33.3 pg (28.0-36.0) 06/30/16 06:05 RDW 12.9 % (11.5-20.0) 06/30/16 06:05 Plt Count 309 Th/cmm (150-400) 06/30/16 06:05 MPV 7.9 fl 06/30/16 06:05 Neutrophils % 77.9 % (40.0-80.0) 06/30/16 06:05 Lymphocytes % 15.6 % (20.0-50.0) L 06/30/16 06:05 Monocytes % 4.9 % (2.0-10.0) 06/30/16 06:05 Eosinophils % 0.5 % (0.0-5.0) 06/30/16 06:05 Basophils % 1.1 % (0.0-2.0) 06/30/16 06:05 ESR 69 mm/hr (0-30) H 06/29/16 06:00 PT 10.4 SECONDS (9.5-11.5) 06/30/16 06:05 INR 1.00 (0.5-1.4) 06/30/16 06:05 PTT (Actin FS) 28.5 SECONDS (26.0-38.0) 06/30/16 06:05 Sodium 140 mEq/L (136-145) 06/30/16 06:05 Potassium 3.3 mEq/L (3.5-5.1) L 06/30/16 06:05 Chloride 108 mEq/L (98-107) H 06/30/16 06:05 Carbon Dioxide 22.9 mEq/L (21.0-31.0) 06/30/16 06:05 Anion Gap 12.4 (7.0-16.0) 06/30/16 06:05 BUN 13 mg/dL (7-25) 06/30/16 06:05 Creatinine 1.3 mg/dL (0.6-1.2) H 06/30/16 06:05 Est GFR ( Amer) TNP 06/30/16 06:05 Est GFR (Non-Af Amer) TNP 06/30/16 06:05 BUN/Creatinine Ratio 10.0 06/30/16 06:05 Glucose 254 mg/dL (70-105) H 06/30/16 06:05 POC Glucose 292 MG/DL (70 - 105) H 06/30/16 06:47 Hemoglobin A1c % 11.1 % (4.0-6.0) H 06/26/16 06:45 Calcium 9.0 mg/dL (8.6-10.3) 06/30/16 06:05 Total Bilirubin 0.5 mg/dL (0.3-1.0) 06/30/16 06:05 AST 17 U/L (13-39) 06/30/16 06:05 ALT 3 U/L (7-52) L 06/30/16 06:05 Alkaline Phosphatase 104 U/L (34-104) 06/30/16 06:05 C-Reactive Protein 10.7 mg/dL (0.0-0.9) H 06/29/16 06:00 Total Protein 7.2 gm/dL (6.0-8.3) 06/30/16 06:05 Albumin 3.3 gm/dL (3.7-5.3) L 06/30/16 06:05 Globulin 3.9 gm/dL 06/30/16 06:05 Albumin/Globulin Ratio 0.9 (1.0-1.8) L 06/30/16 06:05 TSH 1.52 uIU/ml (0.34-5.60) 06/27/16 06:40 Vancomycin Trough 9.5 ug/mL (10-20) L 06/30/16 06:05 - Physical Exam Vitals and I&O: Vital Signs Temp 98.4 F 06/30/16 00:00 Pulse 88 06/30/16 00:00 Resp 18 06/30/16 00:00 BP 152/58 06/30/16 00:00 Pulse Ox 97 06/30/16 00:00 Intake & Output 06/29/16 06/30/16 06/30/16 18:59 06:59 18:59 Intake Total 1300 100 Balance 1300 100 Intake: Intake, IV Amount 1300 100 Piperacillin Sodium/ 50 100 Tazobact 3.375 gm In Sodium Chloride 0.9% 50 ml @ 100 mls/hr IV Q8HR [facility] Rx#:[id number] Sodium Chloride 0.9% 1, 1000 000 ml @ 50 mls/hr IV . Q20H [facility] Rx#:[id number] Vancomycin HCl 1 gm In 250 Sodium Chloride 0.9% 250 ml @ 165 mls/hr IV Q24H [facility] Rx#:[id number] Other: # Bowel Movements 2 Active Medications: Current Medications Acetaminophen (Tylenol) 650 mg PO Q6H PRN PRN Reason: FEVER 101, MILD PAIN Stop: 08/25/16 03:02 Last Admin: 06/29/16 20:50 Dose: 650 mg Aspirin (Aspirin Chewable) 81 mg PO DAILY [facility] Stop: 08/29/16 08:59 Carbidopa/Levodopa (Sinemet 25mg-100 Mg) 1 tab PO TID [facility] Stop: 08/25/16 08:59 Last Admin: 06/29/16 20:50 Dose: 1 tab Cilostazol (Pletal) 100 mg PO BID [facility] Stop: 08/29/16 08:59 Clonidine HCl (Catapres) 0.1 mg PO Q8HR PRN PRN Reason: BP MAINTENANCE (PER PROTOCOL) Stop: 08/29/16 08:48 Clopidogrel Bisulfate (Plavix) 75 mg PO DAILY [facility] Stop: 08/29/16 08:59 Enoxaparin Sodium (Lovenox) 30 mg SUBQ Q12HR [facility] Stop: 08/25/16 13:59 Last Admin: 06/29/16 20:50 Dose: 30 mg Piperacillin Sod/Tazobactam (Sod 3.375 gm/ Sodium Chloride) 50 mls @ 100 mls/ hr IV Q8HR [facility] Stop: 08/25/16 04:59 Last Infusion: 06/30/16 06:31 Dose: Infused Sodium Chloride (Nacl 0.9%) 1,000 mls @ 50 mls/hr IV .Q20H [facility] Stop: 08/25/16 03:14 Last Admin: 06/30/16 00:58 Dose: 50 mls/hr Lactated Ringer's (Lactated Ringer) 1,000 mls @ 0 mls/hr IV .Q0M SIRISHA PRN Reason: TKO Stop: 07/01/16 08:14 Insulin Aspart (Novolog Insulin Sliding Scale) 0 units SUBQ ACHS SIRISHA PRN Reason: Protocol Stop: 08/25/16 07:29 Last Admin: 06/30/16 06:58 Dose: Not Given Lorazepam (Ativan) 1 mg IVP Q8HR PRN; Protocol PRN Reason: Agitation Stop: 08/26/16 23:27 Last Admin: 06/29/16 20:52 Dose: 1 mg Meperidine HCl (Demerol) 12.5 mg IVP UD PRN PRN Reason: POST-OP PAIN Stop: 07/01/16 08:13 Miscellaneous (Vancomycin Iv Per Pharmacy) 1 ea [facility] DAILY [facility] Stop: 08/27/16 09:59 Morphine Sulfate (Morphine) 1 mg IVP Q4HR PRN PRN Reason: Pain (Severe) Stop: 08/25/16 20:54 Last Admin: 06/30/16 06:28 Dose: 1 mg Ondansetron HCl (Zofran) 4 mg IV X1 PRN PRN Reason: Nausea / Vomiting Stop: 07/01/16 08:13 Vitamin D (Vitamin D3) 2,000 iu PO DAILY [facility] Stop: 08/29/16 08:59 General: Alert, Other (Confused) HEENT: Atraumatic Neck: Supple Cardiovascular: Regular rate Lungs: Clear to auscultation Abdomen: Bowel sounds Extremities: Other (Leg ulcer improving) Neurological: Other (Non ambulatory) Skin: Other (Warm and dry) Psych/Mental Status: Other (Confused) Assessment/Plan - Assessment Assessment: Patient is awake, calm, confused in some distress due to pain. Today WBC still high. Bone scan shows no osteomyelitis. - Plan Plan: Case is discussed with family and explain poor prognosis. Patient will have surgery today. will continue to monitor. Nutritional Asmnt/Malnutr-PDOC - Dietary Evaluation Malnutrition Findings (Please click <Entered> for more info): Nutritional Asmnt/Malnutrition Start: 06/26/16 09: 58 Text: Status: Complete Freq: Document 06/26/16 09:58 FABYMARIETTA (Rec: 06/26/16 10:14 FABYBonnie CRISTO- FNS1) Nutritional Asmnt/Malnutrition Patient General Information Nutritional Screening High Risk Screening Diagnosis Foot cellulitis (reason for visit) Pertinent Medical Hx/Surgical Hx diabetes and parkinson's disease Subjective Information Patient was transferred to this hospital with foot cellulitis. Patient lying in bed with granddaughter at bedside. Per granddaughter, patient's blood sugar is better controlled at home and doesn't usually go above 200 ( now 335). Patient does not follow a diabetic diet or know what foods affect blood sugar . Provided granddaughter with DM diet education including handouts on food sources of carbohydrates, meal planning and serving sizes. Current Diet Order/ Nutrition Support 60 gm CCHO Patient / S.O Indicated Pertinent Medications vitamin D, novolog Pertinent Labs (06/26) Na 132, Glucose 346, 335, Albumin 3 Nutritional Hx/Data Height 1.55 m Height (Calculated Centimeters) 154.9 Current Weight (lbs) 64.41 kg Weight (Calculated Kilograms) 64.4 Weight (Calculated Grams) 56037.1 Jones Body Weight 105 % Jones Body Weight 135 Recent Weight Change No Weight Status Overweight GI Symptoms GI Symptoms None Food Allergies No Cultural/Ethnic/[employer] Belief none indicated Usual diet at home regular Skin Integrity/Comment: 3+ non-pitting edema in R Leg, 2+ non-pitting edema in L leg , Kei 18, Estimated Nutritional Goals BEE in Kcals: Using Current wt Calories/Kcals/Kg 25-30 kcal/kg Kcals Calculated 7037-8946 kcal/day Protein: Using Current wt Protein g/k-1.2 gm/kg (wound healing) Protein Calculated 65-75 gm/day Fluid: ml 2563-9625 ml/day Nutritional Problem 2. Problem Problem Food and nutrition related knowledge deficit related to Etiology lack of prior education on DM diet aeb Signs/Symptoms: unable to recognize food sources of carbohydrates. 1. Problem Problem Altered nutrition related lab values related to Etiology uncontrolled hyperglycemia aeb Signs/Symptoms: glucose 346, 335 Intervention/Recommendation Comments 1. Continue 60gm CCHO diet as tolerated by patient. 2. DM diet education provided/ handouts given. 3. MD to continue to adjust insulin regimen for optimal glycemic control. Expected Outcomes/Goals Expected Outcomes/Goals oral intake >75% of meals, glucose improves (80-180), skin integrity improves, weight remains stable.
[2016-06-30] MEDS: Aspirin 81mg Chewable Tab PO SCH (09:45)
[2016-06-30] MEDS: Vitamin D3 2,000 IU SGL PO SCH (09:45)
[2016-06-30] MEDS: Enoxaparin 30 mg/0.3 mL 0.3mL Syr SUBQ SCH ×2 (09:46→20:56)
[2016-06-30] MEDS ORDERED: Bupivacaine 0.5% 10 mL Vial INJ ONE (14:14)
--- NOTE | 2016-06-30 16:11 | Operative Report ---
PREOPERATIVE DIAGNOSES: 1. Occlusion of right superficial femoral artery. 2. Small vessel disease 3. Diabetes mellitus. 4. Hypertension. 5. Stage IV right heel decubitus ulcer. POSTOPERATIVE DIAGNOSES: 1. Occlusion of right superficial femoral artery. 2. Small vessel disease 3. Diabetes mellitus. 4. Hypertension. 5. Stage IV right heel decubitus ulcer. OPERATION DONE: Right femoropopliteal bypass graft (bovine). SURGEON: Nathalie Rueda M.D. RELIGIOUS ACTIVITIES DIRECTOR: Dr. Soto. ANESTHESIA: Spinal. ANESTHESIOLOGIST: Khang Slater M.D. ESTIMATED BLOOD LOSS: 50 mL. OPERATIVE FINDINGS: Soft distal popliteal artery with some calcification at the bifurcation. The common femoral artery was soft with minimal calcification. A bovine graft was used. DETAILS OF PROCEDURE: The patient was given spinal anesthesia. The right lower extremity was prepped with ChloraPrep and draped in appropriate manner. An incision was made below the knee on the medial aspect of the upper leg and this incision was carried all the way down to the popliteal space. The artery was exposed and isolated. A separate incision was made in the groin along the skin line. The common and superficial femoral arteries were exposed and isolated. 5000 units of heparin was given intravenously. With retractors in place, the distal popliteal artery was clamped proximal and distal. An arteriotomy was made on its medial wall. Bovine graft was then anastomosed end-to-side fashion to the artery utilizing running suture of 5-0 Prolene. Following release of clamps, there was no leak at the anastomosis. Tunnel was used to bring the bovine graft to the groin marking the side to prevent twisting. The common and superficial femoral vessel was clamped proximal and distal and an arteriotomy was made in its anterior wall. The graft was kept angled to fit the arteriotomy and 5-0 Prolene in continuous fashion was used to complete this anastomosis. Following release of clamps, there was excellent pulsatile flow into the distal anastomosis. Following satisfactory hemostasis, the incision was closed with interrupted sutures of 3-0 Vicryl subcutaneously and the skin was closed with subcuticular suture of 4-0 Vicryl. The patient will be placed on Plavix and aspirin and continue Pletal. [facility]# [id number] [facility] HOSPITALModesta
--- NOTE | 2016-06-30 22:28 | Infectious Disease Prog Note ---
Infectious Disease Subjective - Review of Systems Service Date: 06/30/16 Subjective: There is no new change, there is no fever. Infectious Disease Objective - Results Result Diagrams: 06/30/16 06:05 06/30/16 06:05 Recent Labs: Laboratory Last Values WBC 13.2 Th/cmm (4.8-10.8) H 06/30/16 06:05 RBC 4.13 Mil/cmm (3.80-5.20) 06/30/16 06:05 Hgb 12.2 gm/dL (11.7-16.1) 06/30/16 06:05 Hct 36.7 % (35.0-45.0) 06/30/16 06:05 MCV 88.7 fl (81-100) 06/30/16 06:05 MCH 29.6 pg (27.0-31.0) 06/30/16 06:05 MCHC Differential 33.3 pg (28.0-36.0) 06/30/16 06:05 RDW 12.9 % (11.5-20.0) 06/30/16 06:05 Plt Count 309 Th/cmm (150-400) 06/30/16 06:05 MPV 7.9 fl 06/30/16 06:05 Neutrophils % 77.9 % (40.0-80.0) 06/30/16 06:05 Lymphocytes % 15.6 % (20.0-50.0) L 06/30/16 06:05 Monocytes % 4.9 % (2.0-10.0) 06/30/16 06:05 Eosinophils % 0.5 % (0.0-5.0) 06/30/16 06:05 Basophils % 1.1 % (0.0-2.0) 06/30/16 06:05 ESR 69 mm/hr (0-30) H 06/29/16 06:00 PT 10.4 SECONDS (9.5-11.5) 06/30/16 06:05 INR 1.00 (0.5-1.4) 06/30/16 06:05 PTT (Actin FS) 28.5 SECONDS (26.0-38.0) 06/30/16 06:05 Sodium 140 mEq/L (136-145) 06/30/16 06:05 Potassium 3.3 mEq/L (3.5-5.1) L 06/30/16 06:05 Chloride 108 mEq/L (98-107) H 06/30/16 06:05 Carbon Dioxide 22.9 mEq/L (21.0-31.0) 06/30/16 06:05 Anion Gap 12.4 (7.0-16.0) 06/30/16 06:05 BUN 13 mg/dL (7-25) 06/30/16 06:05 Creatinine 1.3 mg/dL (0.6-1.2) H 06/30/16 06:05 Est GFR ( Amer) TNP 06/30/16 06:05 Est GFR (Non-Af Amer) TNP 06/30/16 06:05 BUN/Creatinine Ratio 10.0 06/30/16 06:05 Glucose 254 mg/dL (70-105) H 06/30/16 06:05 POC Glucose 232 MG/DL (70 - 105) H 06/30/16 20:32 Hemoglobin A1c % 11.1 % (4.0-6.0) H 06/26/16 06:45 Calcium 9.0 mg/dL (8.6-10.3) 06/30/16 06:05 Total Bilirubin 0.5 mg/dL (0.3-1.0) 06/30/16 06:05 AST 17 U/L (13-39) 06/30/16 06:05 ALT 3 U/L (7-52) L 06/30/16 06:05 Alkaline Phosphatase 104 U/L (34-104) 06/30/16 06:05 C-Reactive Protein 10.7 mg/dL (0.0-0.9) H 06/29/16 06:00 Total Protein 7.2 gm/dL (6.0-8.3) 06/30/16 06:05 Albumin 3.3 gm/dL (3.7-5.3) L 06/30/16 06:05 Globulin 3.9 gm/dL 06/30/16 06:05 Albumin/Globulin Ratio 0.9 (1.0-1.8) L 06/30/16 06:05 TSH 1.52 uIU/ml (0.34-5.60) 06/27/16 06:40 Vancomycin Trough 9.5 ug/mL (10-20) L 06/30/16 06:05 - Physical Exam Vitals and I&O: Vital Signs Temp 99.3 F 06/30/16 16:00 Pulse 96 06/30/16 16:43 Resp 18 06/30/16 16:00 BP 178/62 06/30/16 16:00 Pulse Ox 100 06/30/16 12:00 Intake & Output 06/30/16 06/30/16 07/01/16 06:59 18:59 06:59 Intake Total 100 300 200 Balance 100 300 200 Intake: Intake, IV Amount 100 50 Piperacillin Sodium/ 100 50 Tazobact 3.375 gm In Sodium Chloride 0.9% 50 ml @ 100 mls/hr IV Q8HR [facility] Rx#:[id number] Oral 250 200 Other: # Bowel Movements 2 Active Medications: Current Medications Acetaminophen (Tylenol) 650 mg PO Q6H PRN PRN Reason: FEVER 101, MILD PAIN Stop: 08/25/16 03:02 Last Admin: 06/29/16 20:50 Dose: 650 mg Aspirin (Aspirin Chewable) 81 mg PO DAILY [facility] Stop: 08/29/16 08:59 Last Admin: 06/30/16 09:45 Dose: Not Given Carbidopa/Levodopa (Sinemet 25mg-100 Mg) 1 tab PO TID [facility] Stop: 08/25/16 08:59 Last Admin: 06/30/16 20:55 Dose: 1 tab Cilostazol (Pletal) 100 mg PO BID [facility] Stop: 08/29/16 08:59 Last Admin: 06/30/16 16:42 Dose: 100 mg Clonidine HCl (Catapres) 0.1 mg PO Q8HR PRN PRN Reason: DBP >90 Stop: 08/29/16 08:48 Last Admin: 06/30/16 16:43 Dose: 0.1 mg Clopidogrel Bisulfate (Plavix) 75 mg PO DAILY [facility] Stop: 08/29/16 08:59 Last Admin: 06/30/16 09:46 Dose: Not Given Enoxaparin Sodium (Lovenox) 30 mg SUBQ Q12HR [facility] Stop: 08/25/16 13:59 Last Admin: 06/30/16 20:56 Dose: 30 mg Piperacillin Sod/Tazobactam (Sod 3.375 gm/ Sodium Chloride) 50 mls @ 100 mls/ hr IV Q8HR [facility] Stop: 08/25/16 04:59 Last Admin: 06/30/16 20:56 Dose: 100 mls/hr Sodium Chloride (Nacl 0.9%) 1,000 mls @ 50 mls/hr IV .Q20H [facility] Stop: 08/25/16 03:14 Last Admin: 06/30/16 00:58 Dose: 50 mls/hr Insulin Aspart (Novolog Insulin Sliding Scale) 0 units SUBQ ACHS [facility] PRN Reason: Protocol Stop: 08/25/16 07:29 Last Admin: 06/30/16 16:42 Dose: 9 units Lorazepam (Ativan) 1 mg IVP Q8HR PRN; Protocol PRN Reason: Agitation Stop: 08/26/16 23:27 Last Admin: 06/30/16 20:55 Dose: 1 mg Morphine Sulfate (Morphine) 1 mg IVP Q4HR PRN PRN Reason: Pain (Severe) Stop: 08/25/16 20:54 Last Admin: 06/30/16 20:55 Dose: 1 mg Vitamin D (Vitamin D3) 2,000 iu PO DAILY [facility] Stop: 08/29/16 08:59 Last Admin: 06/30/16 09:45 Dose: Not Given General: no acute distress, well developed, well nourished HEENT: atraumatic, normocephalic, PERRLA, EOMI Neck: supple, no thyromegaly, no lymphadenopathy Cardiovascular: S1S2, regular Lungs: clear to auscultation bilaterally, clear to percussion Abdomen: soft, no tender, no distended Extremities: other (Right foot and heel wound. WOund vac.), no cyanosis, no clubbing, no edema Neurological: awake, alert, oriented, CN 2-12 intact - Procedures Procedures: Procedures Procedure Code Date EXCISION OF RIGHT TARSAL, OPEN APPROACH [id number] 06/26/16 REMOVAL OF PRESSURE SORE 48315 06/26/16 Infectious Disease Assmt/Plan - Assessment Assessment: Impression: 1. Right heel and foot ulcer with bone exposed. Bone scan is negative for osteomyelitis. 2. PAD. 3. DM2. Recommendations: Will change antibiotics to levaquin IV which can be changed to levaquin po for 10 more days. wound care. Nutritional Asmnt/Malnutr-PDOC - Dietary Evaluation Malnutrition Findings (Please click <Entered> for more info): Nutritional Asmnt/Malnutrition Start: 06/26/16 09: 58 Text: Status: Complete Freq: Document 06/26/16 09:58 FABYBonnie (Rec: 06/26/16 10:14 ROXANNE CRISTO- FNS1) Nutritional Asmnt/Malnutrition Patient General Information Nutritional Screening High Risk Screening Diagnosis Foot cellulitis (reason for visit) Pertinent Medical Hx/Surgical Hx diabetes and parkinson's disease Subjective Information Patient was transferred to this hospital with foot cellulitis. Patient lying in bed with granddaughter at bedside. Per granddaughter, patient's blood sugar is better controlled at home and doesn't usually go above 200 ( now 335). Patient does not follow a diabetic diet or know what foods affect blood sugar . Provided granddaughter with DM diet education including handouts on food sources of carbohydrates, meal planning and serving sizes. Current Diet Order/ Nutrition Support 60 gm CCHO Patient / S.O Indicated Pertinent Medications vitamin D, novolog Pertinent Labs (06/26) Na 132, Glucose 346, 335, Albumin 3 Nutritional Hx/Data Height 1.55 m Height (Calculated Centimeters) 154.9 Current Weight (lbs) 64.41 kg Weight (Calculated Kilograms) 64.4 Weight (Calculated Grams) 81603.1 [place] Body Weight 105 % [place] Body Weight 135 Recent Weight Change No Weight Status Overweight GI Symptoms GI Symptoms None Food Allergies No Cultural/Ethnic/Hinduism Belief none indicated Usual diet at home regular Skin Integrity/Comment: 3+ non-pitting edema in R Leg, 2+ non-pitting edema in L leg , Kei 18, Estimated Nutritional Goals BEE in Kcals: Using Current wt Calories/Kcals/Kg 25-30 kcal/kg Kcals Calculated 8505-7236 kcal/day Protein: Using Current wt Protein g/k-1.2 gm/kg (wound healing) Protein Calculated 65-75 gm/day Fluid: ml 8731-3740 ml/day Nutritional Problem 2. Problem Problem Food and nutrition related knowledge deficit related to Etiology lack of prior education on DM diet aeb Signs/Symptoms: unable to recognize food sources of carbohydrates. 1. Problem Problem Altered nutrition related lab values related to Etiology uncontrolled hyperglycemia aeb Signs/Symptoms: glucose 346, 335 Intervention/Recommendation Comments 1. Continue 60gm CCHO diet as tolerated by patient. 2. DM diet education provided/ handouts given. 3. MD to continue to adjust insulin regimen for optimal glycemic control. Expected Outcomes/Goals Expected Outcomes/Goals oral intake >75% of meals, glucose improves (80-180), skin integrity improves, weight remains stable.
[2016-06-30] MEDS: Levofloxacin 500mg/100mL 500 MG/100 ML BAG IV SCH (23:58)
[2016-07-01] MEDS: Morphine Sulfate 2 mg/mL 1mL Syr IVP PRN ×2 (01:39→05:39)
[2016-07-01 06:36] LABS: HEMOGLOBIN 10.7 gm/dL (11.7-16.1); MEAN CELL VOLUME 86.8 fl (81-100); MEAN CORPUSCULAR HEMOGLOBIN 29.9 pg (27.0-31.0); MEAN CORPUSCULAR HGB CONC 34.4 pg (28.0-36.0); MEAN PLATELET VOLUME 7.4 fl; PLATELET COUNT 292 Th/cmm (150-400); RED BLOOD COUNT 3.57 Mil/cmm (3.80-5.20); RED CELL DISTRIBUTION WIDTH 12.8 % (11.5-20.0)
[2016-07-01] MEDS: INSULIN ASPART SLIDING SCALE 100 UNITS/ML UNIT SUBQ SCH ×4 (06:37→21:27)
[2016-07-01 06:49] LABS: ALB/GLOB RATIO 0.9 (1.0-1.8); ALKALINE PHOSPHATASE 86 U/L (34-104); ANION GAP 13.9 (7.0-16.0); BILIRUBIN,TOTAL 0.5 mg/dL (0.3-1.0); BUN - UREA NITROGEN 10 mg/dL (7-25); BUN/CREATININE RATIO 9.1; CALCIUM SERUM 8.5 mg/dL (8.6-10.3); CHLORIDE 107 mEq/L (98-107); CREATININE - SERUM 1.1 mg/dL (0.6-1.2); GLUCOSE 228 mg/dL (70-105); SGOT 17 U/L (13-39); SGPT/ALT 6 U/L (7-52); SODIUM SERUM 140 mEq/L (136-145)
[2016-07-01 07:05] LABS: POTASSIUM SERUM 2.9 mEq/L (3.5-5.1)
[2016-07-01 07:59] LABS: WHITE BLOOD COUNT 15.6 Th/cmm (4.8-10.8)
[2016-07-01] MEDS: Vitamin D3 2,000 IU SGL PO SCH (08:21)
[2016-07-01] MEDS: Aspirin 81mg Chewable Tab PO SCH (08:21)
[2016-07-01] MEDS: Enoxaparin 30 mg/0.3 mL 0.3mL Syr SUBQ SCH ×2 (08:26→21:29)
[2016-07-01 08:45] LABS: BAND NEUTROPHILE 3 % (0-10); NEUTROPHILS 75 % (40-80); PLATELET ESTIMATE ADEQUATE (NORMAL); PLATELET MORPHOLOGY NORMAL (NORMAL); TOTAL CELLS COUNTED 100
[2016-07-01] MEDS ORDERED: Potassium Chloride 40 MEQ, Lidocaine 1% 20mL Vial 25 MG in Sodium Chloride 0.9% 250 ML IV ONE (08:48)
--- NOTE | 2016-07-01 09:17 | General Progress Note ---
Subjective - Review of Systems Service Date: 07/01/16 Subjective: I have leg pain. Objective - Results Result Diagrams: 07/01/16 06:20 07/01/16 06:20 Recent Labs: Laboratory Last Values WBC 15.6 Th/cmm (4.8-10.8) H 07/01/16 06:20 RBC 3.57 Mil/cmm (3.80-5.20) L 07/01/16 06:20 Hgb 10.7 gm/dL (11.7-16.1) L 07/01/16 06:20 Hct 31.0 % (35.0-45.0) L D 07/01/16 06:20 MCV 86.8 fl (81-100) 07/01/16 06:20 MCH 29.9 pg (27.0-31.0) 07/01/16 06:20 MCHC Differential 34.4 pg (28.0-36.0) 07/01/16 06:20 RDW 12.8 % (11.5-20.0) 07/01/16 06:20 Plt Count 292 Th/cmm (150-400) 07/01/16 06:20 MPV 7.4 fl 07/01/16 06:20 Neutrophils % 77.9 % (40.0-80.0) 06/30/16 06:05 Band Neutrophils % 3 % (0-10) 07/01/16 06:20 Lymphocytes % 15.6 % (20.0-50.0) L 06/30/16 06:05 Monocytes % 4.9 % (2.0-10.0) 06/30/16 06:05 Eosinophils % 0.5 % (0.0-5.0) 06/30/16 06:05 Basophils % 1.1 % (0.0-2.0) 06/30/16 06:05 Neutrophils (Manual) 75 % (40-80) 07/01/16 06:20 Lymphocytes 12 % (20-50) L 07/01/16 06:20 Monocytes 10 % (2-10) 07/01/16 06:20 Platelet Estimate ADEQUATE (NORMAL) 07/01/16 06:20 Platelet Morphology NORMAL (NORMAL) 07/01/16 06:20 RBC Morph Micro Appear NORMAL (NORMAL) 07/01/16 06:20 ESR 69 mm/hr (0-30) H 06/29/16 06:00 PT 10.4 SECONDS (9.5-11.5) 06/30/16 06:05 INR 1.00 (0.5-1.4) 06/30/16 06:05 PTT (Actin FS) 28.5 SECONDS (26.0-38.0) 06/30/16 06:05 Sodium 140 mEq/L (136-145) 07/01/16 06:20 Potassium 2.9 mEq/L (3.5-5.1) L* 07/01/16 06:20 Chloride 107 mEq/L (98-107) 07/01/16 06:20 Carbon Dioxide 22.0 mEq/L (21.0-31.0) 07/01/16 06:20 Anion Gap 13.9 (7.0-16.0) 07/01/16 06:20 BUN 10 mg/dL (7-25) 07/01/16 06:20 Creatinine 1.1 mg/dL (0.6-1.2) 07/01/16 06:20 Est GFR ( Amer) TNP 07/01/16 06:20 Est GFR (Non-Af Amer) TNP 07/01/16 06:20 BUN/Creatinine Ratio 9.1 07/01/16 06:20 Glucose 228 mg/dL (70-105) H 07/01/16 06:20 POC Glucose 203 MG/DL (70 - 105) H 07/01/16 06:35 Hemoglobin A1c % 11.1 % (4.0-6.0) H 06/26/16 06:45 Calcium 8.5 mg/dL (8.6-10.3) L 07/01/16 06:20 Total Bilirubin 0.5 mg/dL (0.3-1.0) 07/01/16 06:20 AST 17 U/L (13-39) 07/01/16 06:20 ALT 6 U/L (7-52) L 07/01/16 06:20 Alkaline Phosphatase 86 U/L (34-104) 07/01/16 06:20 C-Reactive Protein 10.7 mg/dL (0.0-0.9) H 06/29/16 06:00 Total Protein 6.3 gm/dL (6.0-8.3) 07/01/16 06:20 Albumin 2.9 gm/dL (3.7-5.3) L 07/01/16 06:20 Globulin 3.4 gm/dL 07/01/16 06:20 Albumin/Globulin Ratio 0.9 (1.0-1.8) L 07/01/16 06:20 TSH 1.52 uIU/ml (0.34-5.60) 06/27/16 06:40 Vancomycin Trough 9.5 ug/mL (10-20) L 06/30/16 06:05 - Physical Exam Vitals and I&O: Vital Signs Temp 99.7 F 07/01/16 04:00 Pulse 107 07/01/16 04:00 Resp 18 07/01/16 04:00 BP 158/76 07/01/16 04:00 Pulse Ox 92 07/01/16 04:00 Intake & Output 06/30/16 07/01/16 07/01/16 18:59 06:59 18:59 Intake Total 300 300 Balance 300 300 Intake: Intake, IV Amount 50 100 Levofloxacin 500mg/100mL 100 500 mg In 100 ml @ 100 mls/hr IV Q24HR [facility] Rx#: [id number] Piperacillin Sodium/ 50 Tazobact 3.375 gm In Sodium Chloride 0.9% 50 ml @ 100 mls/hr IV Q8HR [facility] Rx#:[id number] Oral 250 200 Active Medications: Current Medications Acetaminophen (Tylenol) 650 mg PO Q6H PRN PRN Reason: FEVER 101, MILD PAIN Stop: 08/25/16 03:02 Last Admin: 06/29/16 20:50 Dose: 650 mg Aspirin (Aspirin Chewable) 81 mg PO DAILY [facility] Stop: 08/29/16 08:59 Last Admin: 07/01/16 08:21 Dose: 81 mg Carbidopa/Levodopa (Sinemet 25mg-100 Mg) 1 tab PO TID [facility] Stop: 08/25/16 08:59 Last Admin: 07/01/16 08:21 Dose: 1 tab Cilostazol (Pletal) 100 mg PO BID [facility] Stop: 08/29/16 08:59 Last Admin: 07/01/16 08:21 Dose: 100 mg Clonidine HCl (Catapres) 0.1 mg PO Q8HR PRN PRN Reason: DBP >90 Stop: 08/29/16 08:48 Last Admin: 06/30/16 16:43 Dose: 0.1 mg Clopidogrel Bisulfate (Plavix) 75 mg PO DAILY [facility] Stop: 08/29/16 08:59 Last Admin: 07/01/16 08:21 Dose: 75 mg Enoxaparin Sodium (Lovenox) 30 mg SUBQ Q12HR [facility] Stop: 08/25/16 13:59 Last Admin: 07/01/16 08:26 Dose: 30 mg Piperacillin Sod/Tazobactam (Sod 3.375 gm/ Sodium Chloride) 50 mls @ 100 mls/ hr IV Q8HR [facility] Stop: 08/25/16 04:59 Last Admin: 06/30/16 20:56 Dose: 100 mls/hr Sodium Chloride (Nacl 0.9%) 1,000 mls @ 50 mls/hr IV .Q20H [facility] Stop: 08/25/16 03:14 Last Admin: 06/30/16 00:58 Dose: 50 mls/hr Levofloxacin (Levaquin Pb) 500 mg in 100 mls @ 100 mls/hr IV Q24HR [facility] Stop: 08/29/16 22:59 Last Infusion: 07/01/16 00:58 Dose: Infused Potassium Chloride 40 meq/Lidocaine HCl 25 mg/ Sodium Chloride 272.5 mls @ 68 mls/hr IV X1 ONE Stop: 07/01/16 12:48 Vancomycin HCl 1.25 gm/ Sodium (Chloride) 500 mls @ 250 mls/hr IV Q24H [facility] Stop: 08/30/16 09:59 Insulin Aspart (Novolog Insulin Sliding Scale) 0 units SUBQ ACHS [facility] PRN Reason: Protocol Stop: 08/25/16 07:29 Last Admin: 07/01/16 06:37 Dose: 5 units Lorazepam (Ativan) 1 mg IVP Q8HR PRN; Protocol PRN Reason: Agitation Stop: 08/26/16 23:27 Last Admin: 06/30/16 20:55 Dose: 1 mg Miscellaneous (Vancomycin Iv Per Pharmacy) 1 ea [facility] DAILY [facility] Stop: 08/30/16 08:59 Morphine Sulfate (Morphine) 1 mg IVP Q4HR PRN PRN Reason: Pain (Severe) Stop: 08/25/16 20:54 Last Admin: 07/01/16 05:39 Dose: 1 mg Vitamin D (Vitamin D3) 2,000 iu PO DAILY [facility] Stop: 08/29/16 08:59 Last Admin: 07/01/16 08:21 Dose: 2,000 iu General: Alert, Oriented x3, Mild distress, Other (Secondary to pain) HEENT: Atraumatic Neck: Supple Cardiovascular: Regular rate Lungs: Clear to auscultation Abdomen: Bowel sounds, Soft Extremities: Other (no edema, pedal pulses not palpable. Surgical wound clean, ulcers clean.) Neurological: Other (Non ambulatory) Skin: Other Psych/Mental Status: Mental status NL - Procedures Procedures: Procedures Procedure Code Date EXCISION OF RIGHT TARSAL, OPEN APPROACH [id number] 06/26/16 REMOVAL OF PRESSURE SORE 12728 06/26/16 Assessment/Plan - Assessment Assessment: Patient is awake, calm, confused in some distress due to pain. Today WBC increased. Bone scan shows no osteomyelitis. Arterial graft done - Plan Plan: Case is discussed with family and explain poor prognosis. Surgery done. will discuss case with family and start discharge planning. On yamileth. Nutritional Asmnt/Malnutr-PDOC - Dietary Evaluation Malnutrition Findings (Please click <Entered> for more info): Nutritional Asmnt/Malnutrition Start: 06/26/16 09: 58 Text: Status: Complete Freq: Document 06/26/16 09:58 ROXANNE (Rec: 06/26/16 10:14 ROXANNE LEMONS- FNS1) Nutritional Asmnt/Malnutrition Patient General Information Nutritional Screening High Risk Screening Diagnosis Foot cellulitis (reason for visit) Pertinent Medical Hx/Surgical Hx diabetes and parkinson's disease Subjective Information Patient was transferred to this hospital with foot cellulitis. Patient lying in bed with granddaughter at bedside. Per granddaughter, patient's blood sugar is better controlled at home and doesn't usually go above 200 ( now 335). Patient does not follow a diabetic diet or know what foods affect blood sugar . Provided granddaughter with DM diet education including handouts on food sources of carbohydrates, meal planning and serving sizes. Current Diet Order/ Nutrition Support 60 gm [facility] Patient / S.O Indicated Pertinent Medications vitamin D, novolog Pertinent Labs (06/26) Na 132, Glucose 346, 335, Albumin 3 Nutritional Hx/Data Height 1.55 m Height (Calculated Centimeters) 154.9 Current Weight (lbs) 64.41 kg Weight (Calculated Kilograms) 64.4 Weight (Calculated Grams) 54507.1 [place] Body Weight 105 % [place] Body Weight 135 Recent Weight Change No Weight Status Overweight GI Symptoms GI Symptoms None Food Allergies No Cultural/Ethnic/Roman Catholic Belief none indicated Usual diet at home regular Skin Integrity/Comment: 3+ non-pitting edema in R Leg, 2+ non-pitting edema in L leg , Kei 18, Estimated Nutritional Goals BEE in Kcals: Using Current wt Calories/Kcals/Kg 25-30 kcal/kg Kcals Calculated 7788-7780 kcal/day Protein: Using Current wt Protein g/k-1.2 gm/kg (wound healing) Protein Calculated 65-75 gm/day Fluid: ml 1988-0830 ml/day Nutritional Problem 2. Problem Problem Food and nutrition related knowledge deficit related to Etiology lack of prior education on DM diet aeb Signs/Symptoms: unable to recognize food sources of carbohydrates. 1. Problem Problem Altered nutrition related lab values related to Etiology uncontrolled hyperglycemia aeb Signs/Symptoms: glucose 346, 335 Intervention/Recommendation Comments 1. Continue 60gm CCHO diet as tolerated by patient. 2. DM diet education provided/ handouts given. 3. MD to continue to adjust insulin regimen for optimal glycemic control. Expected Outcomes/Goals Expected Outcomes/Goals oral intake >75% of meals, glucose improves (80-180), skin integrity improves, weight remains stable.
--- NOTE | 2016-07-01 11:10 | Pathology Report ---
[id number] Collection Date: 06/28/2016 Surgeon: Dr. Nikhil Zelaya Specimen Description: Debrided tissue, right heel. Gross Description: Received in formalin is a 4 x 3.2 x 0.8 cm excision of brownish-lang necrotic-appearing skin and subcutaneous tissue. Areas of blistering and ulceration are appreciated. Steward[employer] Class sections are submitted in one cassette. Microscopic Description: The histologic sections show an excision of skin and subcutaneous tissue with extensive degeneration and necrosis present. Diagnosis: Portion of necrotic skin and subcutaneous tissue consistent with debridement. [facility]# [id number]
--- NOTE | 2016-07-01 12:25 | Infectious Disease Prog Note ---
Infectious Disease Subjective - Review of Systems Service Date: 07/01/16 Subjective: There is no new change, there is no fever. c/o pain in her right leg. Infectious Disease Objective - Results Result Diagrams: 07/01/16 06:20 07/01/16 06:20 Recent Labs: Laboratory Last Values WBC 15.6 Th/cmm (4.8-10.8) H 07/01/16 06:20 RBC 3.57 Mil/cmm (3.80-5.20) L 07/01/16 06:20 Hgb 10.7 gm/dL (11.7-16.1) L 07/01/16 06:20 Hct 31.0 % (35.0-45.0) L D 07/01/16 06:20 MCV 86.8 fl (81-100) 07/01/16 06:20 MCH 29.9 pg (27.0-31.0) 07/01/16 06:20 MCHC Differential 34.4 pg (28.0-36.0) 07/01/16 06:20 RDW 12.8 % (11.5-20.0) 07/01/16 06:20 Plt Count 292 Th/cmm (150-400) 07/01/16 06:20 MPV 7.4 fl 07/01/16 06:20 Neutrophils % 77.9 % (40.0-80.0) 06/30/16 06:05 Band Neutrophils % 3 % (0-10) 07/01/16 06:20 Lymphocytes % 15.6 % (20.0-50.0) L 06/30/16 06:05 Monocytes % 4.9 % (2.0-10.0) 06/30/16 06:05 Eosinophils % 0.5 % (0.0-5.0) 06/30/16 06:05 Basophils % 1.1 % (0.0-2.0) 06/30/16 06:05 Neutrophils (Manual) 75 % (40-80) 07/01/16 06:20 Lymphocytes 12 % (20-50) L 07/01/16 06:20 Monocytes 10 % (2-10) 07/01/16 06:20 Platelet Estimate ADEQUATE (NORMAL) 07/01/16 06:20 Platelet Morphology NORMAL (NORMAL) 07/01/16 06:20 RBC Morph Micro Appear NORMAL (NORMAL) 07/01/16 06:20 ESR 69 mm/hr (0-30) H 06/29/16 06:00 PT 10.4 SECONDS (9.5-11.5) 06/30/16 06:05 INR 1.00 (0.5-1.4) 06/30/16 06:05 PTT (Actin FS) 28.5 SECONDS (26.0-38.0) 06/30/16 06:05 Sodium 140 mEq/L (136-145) 07/01/16 06:20 Potassium 2.9 mEq/L (3.5-5.1) L* 07/01/16 06:20 Chloride 107 mEq/L (98-107) 07/01/16 06:20 Carbon Dioxide 22.0 mEq/L (21.0-31.0) 07/01/16 06:20 Anion Gap 13.9 (7.0-16.0) 07/01/16 06:20 BUN 10 mg/dL (7-25) 07/01/16 06:20 Creatinine 1.1 mg/dL (0.6-1.2) 07/01/16 06:20 Est GFR ( Amer) TNP 07/01/16 06:20 Est GFR (Non-Af Amer) TNP 07/01/16 06:20 BUN/Creatinine Ratio 9.1 07/01/16 06:20 Glucose 228 mg/dL (70-105) H 07/01/16 06:20 POC Glucose 325 MG/DL (70 - 105) H 07/01/16 11:15 Hemoglobin A1c % 11.1 % (4.0-6.0) H 06/26/16 06:45 Calcium 8.5 mg/dL (8.6-10.3) L 07/01/16 06:20 Total Bilirubin 0.5 mg/dL (0.3-1.0) 07/01/16 06:20 AST 17 U/L (13-39) 07/01/16 06:20 ALT 6 U/L (7-52) L 07/01/16 06:20 Alkaline Phosphatase 86 U/L (34-104) 07/01/16 06:20 C-Reactive Protein 10.7 mg/dL (0.0-0.9) H 06/29/16 06:00 Total Protein 6.3 gm/dL (6.0-8.3) 07/01/16 06:20 Albumin 2.9 gm/dL (3.7-5.3) L 07/01/16 06:20 Globulin 3.4 gm/dL 07/01/16 06:20 Albumin/Globulin Ratio 0.9 (1.0-1.8) L 07/01/16 06:20 TSH 1.52 uIU/ml (0.34-5.60) 06/27/16 06:40 Vancomycin Trough 9.5 ug/mL (10-20) L 06/30/16 06:05 - Physical Exam Vitals and I&O: Vital Signs Temp 99.7 F 07/01/16 04:00 Pulse 107 07/01/16 04:00 Resp 18 07/01/16 04:00 BP 158/76 07/01/16 04:00 Pulse Ox 92 07/01/16 04:00 Intake & Output 06/30/16 07/01/16 07/01/16 18:59 06:59 18:59 Intake Total 300 300 Balance 300 300 Intake: Intake, IV Amount 50 100 Levofloxacin 500mg/100mL 100 500 mg In 100 ml @ 100 mls/hr IV Q24HR [facility] Rx#: [id number] Piperacillin Sodium/ 50 Tazobact 3.375 gm In Sodium Chloride 0.9% 50 ml @ 100 mls/hr IV Q8HR [facility] Rx#:[id number] Oral 250 200 Active Medications: Current Medications Acetaminophen (Tylenol) 650 mg PO Q6H PRN PRN Reason: FEVER 101, MILD PAIN Stop: 08/25/16 03:02 Last Admin: 06/29/16 20:50 Dose: 650 mg Aspirin (Aspirin Chewable) 81 mg PO DAILY [facility] Stop: 08/29/16 08:59 Last Admin: 07/01/16 08:21 Dose: 81 mg Carbidopa/Levodopa (Sinemet 25mg-100 Mg) 1 tab PO TID [facility] Stop: 08/25/16 08:59 Last Admin: 07/01/16 08:21 Dose: 1 tab Cilostazol (Pletal) 100 mg PO BID [facility] Stop: 08/29/16 08:59 Last Admin: 07/01/16 08:21 Dose: 100 mg Clonidine HCl (Catapres) 0.1 mg PO Q8HR PRN PRN Reason: DBP >90 Stop: 08/29/16 08:48 Last Admin: 06/30/16 16:43 Dose: 0.1 mg Clopidogrel Bisulfate (Plavix) 75 mg PO DAILY [facility] Stop: 08/29/16 08:59 Last Admin: 07/01/16 08:21 Dose: 75 mg Enoxaparin Sodium (Lovenox) 30 mg SUBQ Q12HR [facility] Stop: 08/25/16 13:59 Last Admin: 07/01/16 08:26 Dose: 30 mg Piperacillin Sod/Tazobactam (Sod 3.375 gm/ Sodium Chloride) 50 mls @ 100 mls/ hr IV Q8HR [facility] Stop: 08/25/16 04:59 Last Admin: 06/30/16 20:56 Dose: 100 mls/hr Sodium Chloride (Nacl 0.9%) 1,000 mls @ 50 mls/hr IV .Q20H [facility] Stop: 08/25/16 03:14 Last Admin: 06/30/16 00:58 Dose: 50 mls/hr Levofloxacin (Levaquin Pb) 500 mg in 100 mls @ 100 mls/hr IV Q24HR [facility] Stop: 08/29/16 22:59 Last Infusion: 07/01/16 00:58 Dose: Infused Potassium Chloride 40 meq/Lidocaine HCl 25 mg/ Sodium Chloride 272.5 mls @ 68 mls/hr IV X1 ONE Stop: 07/01/16 12:48 Last Admin: 07/01/16 10:50 Dose: 68 mls/hr Vancomycin HCl 1.25 gm/ Sodium (Chloride) 500 mls @ 250 mls/hr IV Q24H [facility] Stop: 08/30/16 09:59 Insulin Aspart (Novolog Insulin Sliding Scale) 0 units SUBQ ACHS [facility] PRN Reason: Protocol Stop: 08/25/16 07:29 Last Admin: 07/01/16 12:06 Dose: 9 units Lorazepam (Ativan) 1 mg IVP Q8HR PRN; Protocol PRN Reason: Agitation Stop: 08/26/16 23:27 Last Admin: 06/30/16 20:55 Dose: 1 mg Miscellaneous (Vancomycin Iv Per Pharmacy) 1 ea MC DAILY [facility] Stop: 08/30/16 08:59 Morphine Sulfate (Morphine) 1 mg IVP Q4HR PRN PRN Reason: Pain (Severe) Stop: 08/25/16 20:54 Last Admin: 07/01/16 05:39 Dose: 1 mg Vitamin D (Vitamin D3) 2,000 iu PO DAILY [facility] Stop: 08/29/16 08:59 Last Admin: 07/01/16 08:21 Dose: 2,000 iu General: no acute distress, well developed, well nourished HEENT: atraumatic, normocephalic, PERRLA, EOMI Neck: supple, no thyromegaly Cardiovascular: S1S2, regular Lungs: clear to auscultation bilaterally, clear to percussion Abdomen: soft, no tender, no distended Extremities: other (right heel wound with wound vac.), no cyanosis, no clubbing , no edema Neurological: awake, alert, oriented, CN 2-12 intact Skin: other (right heel wound.) - Procedures Procedures: Procedures Procedure Code Date EXCISION OF RIGHT TARSAL, OPEN APPROACH [id number] 06/26/16 REMOVAL OF PRESSURE SORE 00817 06/26/16 Infectious Disease Assmt/Plan - Assessment Assessment: Impression: 1. Right heel and foot ulcer with bone exposed. Bone scan is negative for osteomyelitis. 2. PAD. 3. DM2. Recommendations: Will change antibiotics to levaquin IV which can be changed to levaquin po for 10 more days. wound care. Nutritional Asmnt/Malnutr-PDOC - Dietary Evaluation Malnutrition Findings (Please click <Entered> for more info): Nutritional Asmnt/Malnutrition Start: 06/26/16 09: 58 Text: Status: Complete Freq: Document 06/26/16 09:58 ROXANNE (Rec: 06/26/16 10:14 MMCAIT LEMONS [email or web address]) Nutritional Asmnt/Malnutrition Patient General Information Nutritional Screening High Risk Screening Diagnosis Foot cellulitis (reason for visit) Pertinent Medical Hx/Surgical Hx diabetes and parkinson's disease Subjective Information Patient was transferred to this hospital with foot cellulitis. Patient lying in bed with granddaughter at bedside. Per granddaughter, patient's blood sugar is better controlled at home and doesn't usually go above 200 ( now 335). Patient does not follow a diabetic diet or know what foods affect blood sugar . Provided granddaughter with DM diet education including handouts on food sources of carbohydrates, meal planning and serving sizes. Current Diet Order/ Nutrition Support 60 gm CCHO Patient / S.O Indicated Pertinent Medications vitamin D, novolog Pertinent Labs (06/26) Na 132, Glucose 346, 335, Albumin 3 Nutritional Hx/Data Height 1.55 m Height (Calculated Centimeters) 154.9 Current Weight (lbs) 64.41 kg Weight (Calculated Kilograms) 64.4 Weight (Calculated Grams) 52943.1 [place] Body Weight 105 % [place] Body Weight 135 Recent Weight Change No Weight Status Overweight GI Symptoms GI Symptoms None Food Allergies No Cultural/Ethnic/Scientologist Belief none indicated Usual diet at home regular Skin Integrity/Comment: 3+ non-pitting edema in R Leg, 2+ non-pitting edema in L leg , Kei 18, Estimated Nutritional Goals BEE in Kcals: Using Current wt Calories/Kcals/Kg 25-30 kcal/kg Kcals Calculated 1936-6460 kcal/day Protein: Using Current wt Protein g/k-1.2 gm/kg (wound healing) Protein Calculated 65-75 gm/day Fluid: ml 9880-3252 ml/day Nutritional Problem 2. Problem Problem Food and nutrition related knowledge deficit related to Etiology lack of prior education on DM diet aeb Signs/Symptoms: unable to recognize food sources of carbohydrates. 1. Problem Problem Altered nutrition related lab values related to Etiology uncontrolled hyperglycemia aeb Signs/Symptoms: glucose 346, 335 Intervention/Recommendation Comments 1. Continue 60gm CCHO diet as tolerated by patient. 2. DM diet education provided/ handouts given. 3. MD to continue to adjust insulin regimen for optimal glycemic control. Expected Outcomes/Goals Expected Outcomes/Goals oral intake >75% of meals, glucose improves (80-180), skin integrity improves, weight remains stable.
--- NOTE | 2016-07-01 16:08 | General Progress Note ---
Subjective - Review of Systems Service Date: 07/01/16 Events since last encounter: right leg and foot are warm incision clean wound vac in place Objective - Results Result Diagrams: 07/01/16 06:20 07/01/16 06:20 Recent Labs: Laboratory Last Values WBC 15.6 Th/cmm (4.8-10.8) H 07/01/16 06:20 RBC 3.57 Mil/cmm (3.80-5.20) L 07/01/16 06:20 Hgb 10.7 gm/dL (11.7-16.1) L 07/01/16 06:20 Hct 31.0 % (35.0-45.0) L D 07/01/16 06:20 MCV 86.8 fl (81-100) 07/01/16 06:20 MCH 29.9 pg (27.0-31.0) 07/01/16 06:20 MCHC Differential 34.4 pg (28.0-36.0) 07/01/16 06:20 RDW 12.8 % (11.5-20.0) 07/01/16 06:20 Plt Count 292 Th/cmm (150-400) 07/01/16 06:20 MPV 7.4 fl 07/01/16 06:20 Neutrophils % 77.9 % (40.0-80.0) 06/30/16 06:05 Band Neutrophils % 3 % (0-10) 07/01/16 06:20 Lymphocytes % 15.6 % (20.0-50.0) L 06/30/16 06:05 Monocytes % 4.9 % (2.0-10.0) 06/30/16 06:05 Eosinophils % 0.5 % (0.0-5.0) 06/30/16 06:05 Basophils % 1.1 % (0.0-2.0) 06/30/16 06:05 Neutrophils (Manual) 75 % (40-80) 07/01/16 06:20 Lymphocytes 12 % (20-50) L 07/01/16 06:20 Monocytes 10 % (2-10) 07/01/16 06:20 Platelet Estimate ADEQUATE (NORMAL) 07/01/16 06:20 Platelet Morphology NORMAL (NORMAL) 07/01/16 06:20 RBC Morph Micro Appear NORMAL (NORMAL) 07/01/16 06:20 ESR 69 mm/hr (0-30) H 06/29/16 06:00 PT 10.4 SECONDS (9.5-11.5) 06/30/16 06:05 INR 1.00 (0.5-1.4) 06/30/16 06:05 PTT (Actin FS) 28.5 SECONDS (26.0-38.0) 06/30/16 06:05 Sodium 140 mEq/L (136-145) 07/01/16 06:20 Potassium 2.9 mEq/L (3.5-5.1) L* 07/01/16 06:20 Chloride 107 mEq/L (98-107) 07/01/16 06:20 Carbon Dioxide 22.0 mEq/L (21.0-31.0) 07/01/16 06:20 Anion Gap 13.9 (7.0-16.0) 07/01/16 06:20 BUN 10 mg/dL (7-25) 07/01/16 06:20 Creatinine 1.1 mg/dL (0.6-1.2) 07/01/16 06:20 Est GFR ( Amer) TNP 07/01/16 06:20 Est GFR (Non-Af Amer) TNP 07/01/16 06:20 BUN/Creatinine Ratio 9.1 07/01/16 06:20 Glucose 228 mg/dL (70-105) H 07/01/16 06:20 POC Glucose 325 MG/DL (70 - 105) H 07/01/16 11:15 Hemoglobin A1c % 11.1 % (4.0-6.0) H 06/26/16 06:45 Calcium 8.5 mg/dL (8.6-10.3) L 07/01/16 06:20 Total Bilirubin 0.5 mg/dL (0.3-1.0) 07/01/16 06:20 AST 17 U/L (13-39) 07/01/16 06:20 ALT 6 U/L (7-52) L 07/01/16 06:20 Alkaline Phosphatase 86 U/L (34-104) 07/01/16 06:20 C-Reactive Protein 10.7 mg/dL (0.0-0.9) H 06/29/16 06:00 Total Protein 6.3 gm/dL (6.0-8.3) 07/01/16 06:20 Albumin 2.9 gm/dL (3.7-5.3) L 07/01/16 06:20 Globulin 3.4 gm/dL 07/01/16 06:20 Albumin/Globulin Ratio 0.9 (1.0-1.8) L 07/01/16 06:20 TSH 1.52 uIU/ml (0.34-5.60) 06/27/16 06:40 Vancomycin Trough 9.5 ug/mL (10-20) L 06/30/16 06:05 - Physical Exam Vitals and I&O: Vital Signs Temp 99.7 F 07/01/16 04:00 Pulse 107 07/01/16 04:00 Resp 18 07/01/16 04:00 BP 158/76 07/01/16 04:00 Pulse Ox 92 07/01/16 04:00 Intake & Output 06/30/16 07/01/16 07/01/16 18:59 06:59 18:59 Intake Total 300 350 6.667 Balance 300 350 6.667 Intake: Intake, IV Amount 50 150 6.667 Levofloxacin 500mg/100mL 100 500 mg In 100 ml @ 100 mls/hr IV Q24HR [facility] Rx#: [id number] Piperacillin Sodium/ 50 50 6.667 Tazobact 3.375 gm In Sodium Chloride 0.9% 50 ml @ 100 mls/hr IV Q8HR [facility] Rx#:[id number] Oral 250 200 Active Medications: Current Medications Acetaminophen (Tylenol) 650 mg PO Q6H PRN PRN Reason: FEVER 101, MILD PAIN Stop: 08/25/16 03:02 Last Admin: 06/29/16 20:50 Dose: 650 mg Aspirin (Aspirin Chewable) 81 mg PO DAILY [facility] Stop: 08/29/16 08:59 Last Admin: 07/01/16 08:21 Dose: 81 mg Carbidopa/Levodopa (Sinemet 25mg-100 Mg) 1 tab PO TID [facility] Stop: 08/25/16 08:59 Last Admin: 07/01/16 14:07 Dose: 1 tab Cilostazol (Pletal) 100 mg PO BID [facility] Stop: 08/29/16 08:59 Last Admin: 07/01/16 08:21 Dose: 100 mg Clonidine HCl (Catapres) 0.1 mg PO Q8HR PRN PRN Reason: DBP >90 Stop: 08/29/16 08:48 Last Admin: 06/30/16 16:43 Dose: 0.1 mg Clopidogrel Bisulfate (Plavix) 75 mg PO DAILY [facility] Stop: 08/29/16 08:59 Last Admin: 07/01/16 08:21 Dose: 75 mg Enoxaparin Sodium (Lovenox) 30 mg SUBQ Q12HR [facility] Stop: 08/25/16 13:59 Last Admin: 07/01/16 08:26 Dose: 30 mg Piperacillin Sod/Tazobactam (Sod 3.375 gm/ Sodium Chloride) 50 mls @ 100 mls/ hr IV Q8HR [facility] Stop: 08/25/16 04:59 Last Admin: 07/01/16 13:41 Dose: 100 mls/hr Sodium Chloride (Nacl 0.9%) 1,000 mls @ 50 mls/hr IV .Q20H [facility] Stop: 08/25/16 03:14 Last Admin: 06/30/16 00:58 Dose: 50 mls/hr Levofloxacin (Levaquin Pb) 500 mg in 100 mls @ 100 mls/hr IV Q24HR [facility] Stop: 08/29/16 22:59 Last Infusion: 07/01/16 00:58 Dose: Infused Vancomycin HCl 1.25 gm/ Sodium (Chloride) 500 mls @ 250 mls/hr IV Q24H [facility] Stop: 08/30/16 09:59 Last Admin: 07/01/16 15:28 Dose: 250 mls/hr Insulin Aspart (Novolog Insulin Sliding Scale) 0 units SUBQ ACHS [facility] PRN Reason: Protocol Stop: 08/25/16 07:29 Last Admin: 07/01/16 12:06 Dose: 9 units Lorazepam (Ativan) 1 mg IVP Q8HR PRN; Protocol PRN Reason: Agitation Stop: 08/26/16 23:27 Last Admin: 06/30/16 20:55 Dose: 1 mg Miscellaneous (Vancomycin Iv Per Pharmacy) 1 ea MC DAILY [facility] Stop: 08/30/16 08:59 Morphine Sulfate (Morphine) 1 mg IVP Q4HR PRN PRN Reason: Pain (Severe) Stop: 08/25/16 20:54 Last Admin: 07/01/16 05:39 Dose: 1 mg Vitamin D (Vitamin D3) 2,000 iu PO DAILY [facility] Stop: 08/29/16 08:59 Last Admin: 07/01/16 08:21 Dose: 2,000 iu - Procedures Procedures: Procedures Procedure Code Date EXCISION OF RIGHT TARSAL, OPEN APPROACH [id number] 06/26/16 REMOVAL OF PRESSURE SORE 45491 06/26/16 Nutritional Asmnt/Malnutr-PDOC - Dietary Evaluation Malnutrition Findings (Please click <Entered> for more info): Nutritional Asmnt/Malnutrition Start: 06/26/16 09: 58 Text: Status: Complete Freq: Document 06/26/16 09:58 ROXANNE (Rec: 06/26/16 10:14 ROXANNE LEMONS- [email or web address]) Nutritional Asmnt/Malnutrition Patient General Information Nutritional Screening High Risk Screening Diagnosis Foot cellulitis (reason for visit) Pertinent Medical Hx/Surgical Hx diabetes and parkinson's disease Subjective Information Patient was transferred to this hospital with foot cellulitis. Patient lying in bed with granddaughter at bedside. Per granddaughter, patient's blood sugar is better controlled at home and doesn't usually go above 200 ( now 335). Patient does not follow a diabetic diet or know what foods affect blood sugar . Provided granddaughter with DM diet education including handouts on food sources of carbohydrates, meal planning and serving sizes. Current Diet Order/ Nutrition Support [facility] Patient / S.O Indicated Pertinent Medications vitamin D, novolog Pertinent Labs (06/26) Na 132, Glucose 346, 335, Albumin 3 Nutritional Hx/Data Height 1.55 m Height (Calculated Centimeters) 154.9 Current Weight (lbs) 64.41 kg Weight (Calculated Kilograms) 64.4 Weight (Calculated Grams) 77365.1 [place] Body Weight 105 % [place] Body Weight 135 Recent Weight Change No Weight Status Overweight GI Symptoms GI Symptoms None Food Allergies No Cultural/Ethnic/Episcopal Belief none indicated Usual diet at home regular Skin Integrity/Comment: 3+ non-pitting edema in R Leg, 2+ non-pitting edema in L leg , Kei 18, Estimated Nutritional Goals BEE in Kcals: Using Current wt Calories/Kcals/Kg 25-30 kcal/kg Kcals Calculated 9856-1771 kcal/day Protein: Using Current wt Protein g/k-1.2 gm/kg (wound healing) Protein Calculated 65-75 gm/day Fluid: ml 0670-6625 ml/day Nutritional Problem 2. Problem Problem Food and nutrition related knowledge deficit related to Etiology lack of prior education on DM diet aeb Signs/Symptoms: unable to recognize food sources of carbohydrates. 1. Problem Problem Altered nutrition related lab values related to Etiology uncontrolled hyperglycemia aeb Signs/Symptoms: glucose 346, 335 Intervention/Recommendation Comments 1. Continue 60gm CCHO diet as tolerated by patient. 2. DM diet education provided/ handouts given. 3. MD to continue to adjust insulin regimen for optimal glycemic control. Expected Outcomes/Goals Expected Outcomes/Goals oral intake >75% of meals, glucose improves (80-180), skin integrity improves, weight remains stable.
[2016-07-02] MEDS: Levofloxacin 500mg/100mL 500 MG/100 ML BAG IV SCH ×2 (00:33→23:09)
[2016-07-02] MEDS: Morphine Sulfate 2 mg/mL 1mL Syr IVP PRN ×2 (00:34→08:20)
[2016-07-02 06:42] LABS: ANION GAP 11.5 (7.0-16.0); BUN - UREA NITROGEN 9 mg/dL (7-25); CALCIUM SERUM 8.1 mg/dL (8.6-10.3); CARBON DIOXIDE 23.1 mEq/L (21.0-31.0); CHLORIDE 106 mEq/L (98-107); GLUCOSE 191 mg/dL (70-105); SODIUM SERUM 138 mEq/L (136-145)
[2016-07-02 06:43] LABS: HEMATOCRIT 29.6 % (35.0-45.0); MEAN CELL VOLUME 87.3 fl (81-100); MEAN CORPUSCULAR HEMOGLOBIN 29.6 pg (27.0-31.0); MEAN CORPUSCULAR HGB CONC 33.9 pg (28.0-36.0); MEAN PLATELET VOLUME 7.8 fl; PLATELET COUNT 281 Th/cmm (150-400); RED BLOOD COUNT 3.39 Mil/cmm (3.80-5.20); RED CELL DISTRIBUTION WIDTH 12.9 % (11.5-20.0)
[2016-07-02 07:03] LABS: POTASSIUM SERUM 2.6 mEq/L (3.5-5.1)
[2016-07-02 07:54] LABS: WHITE BLOOD COUNT 15.6 Th/cmm (4.8-10.8)
[2016-07-02] MEDS: Vitamin D3 2,000 IU SGL PO SCH (08:19)
[2016-07-02] MEDS: Aspirin 81mg Chewable Tab PO SCH (08:19)
[2016-07-02] MEDS: Enoxaparin 30 mg/0.3 mL 0.3mL Syr SUBQ SCH ×2 (08:20→20:42)
[2016-07-02 08:51] LABS: BAND NEUTROPHILE 2 % (0-10); NEUTROPHILS 74 % (40-80); PLATELET ESTIMATE ADEQUATE (NORMAL); PLATELET MORPHOLOGY NORMAL (NORMAL); TOTAL CELLS COUNTED 100
[2016-07-02] MEDS ORDERED: Potassium Chloride 40 MEQ, Lidocaine 1% 20mL Vial 25 MG in Sodium Chloride 0.9% 250 ML IV ONE (08:54)
--- NOTE | 2016-07-02 09:06 | General Progress Note ---
Subjective - Review of Systems Service Date: 07/02/16 Subjective: I have leg pain. Objective - Results Result Diagrams: 07/02/16 05:50 07/02/16 05:50 Recent Labs: Laboratory Last Values WBC 15.6 Th/cmm (4.8-10.8) H 07/02/16 05:50 RBC 3.39 Mil/cmm (3.80-5.20) L 07/02/16 05:50 Hgb 10.0 gm/dL (11.7-16.1) L 07/02/16 05:50 Hct 29.6 % (35.0-45.0) L 07/02/16 05:50 MCV 87.3 fl (81-100) 07/02/16 05:50 MCH 29.6 pg (27.0-31.0) 07/02/16 05:50 MCHC Differential 33.9 pg (28.0-36.0) 07/02/16 05:50 RDW 12.9 % (11.5-20.0) 07/02/16 05:50 Plt Count 281 Th/cmm (150-400) 07/02/16 05:50 MPV 7.8 fl 07/02/16 05:50 Neutrophils % 77.9 % (40.0-80.0) 06/30/16 06:05 Band Neutrophils % 2 % (0-10) 07/02/16 05:50 Lymphocytes % 15.6 % (20.0-50.0) L 06/30/16 06:05 Monocytes % 4.9 % (2.0-10.0) 06/30/16 06:05 Eosinophils % 0.5 % (0.0-5.0) 06/30/16 06:05 Basophils % 1.1 % (0.0-2.0) 06/30/16 06:05 Neutrophils (Manual) 74 % (40-80) 07/02/16 05:50 Lymphocytes 15 % (20-50) L 07/02/16 05:50 Monocytes 7 % (2-10) 07/02/16 05:50 Atypical Lymphocytes 2 % 07/02/16 05:50 Platelet Estimate ADEQUATE (NORMAL) 07/02/16 05:50 Platelet Morphology NORMAL (NORMAL) 07/02/16 05:50 RBC Morph Micro Appear NORMAL (NORMAL) 07/02/16 05:50 ESR 69 mm/hr (0-30) H 06/29/16 06:00 PT 10.4 SECONDS (9.5-11.5) 06/30/16 06:05 INR 1.00 (0.5-1.4) 06/30/16 06:05 PTT (Actin FS) 28.5 SECONDS (26.0-38.0) 06/30/16 06:05 Sodium 138 mEq/L (136-145) 07/02/16 05:50 Potassium 2.6 mEq/L (3.5-5.1) L* 07/02/16 05:50 Chloride 106 mEq/L (98-107) 07/02/16 05:50 Carbon Dioxide 23.1 mEq/L (21.0-31.0) 07/02/16 05:50 Anion Gap 11.5 (7.0-16.0) 07/02/16 05:50 BUN 9 mg/dL (7-25) 07/02/16 05:50 Creatinine 1.0 mg/dL (0.6-1.2) 07/02/16 05:50 Est GFR ( Amer) TNP 07/02/16 05:50 Est GFR (Non-Af Amer) TNP 07/02/16 05:50 BUN/Creatinine Ratio 9.0 07/02/16 05:50 Glucose 191 mg/dL (70-105) H 07/02/16 05:50 POC Glucose 203 MG/DL (70 - 105) H 07/02/16 05:18 Hemoglobin A1c % 11.1 % (4.0-6.0) H 06/26/16 06:45 Calcium 8.1 mg/dL (8.6-10.3) L 07/02/16 05:50 Total Bilirubin 0.5 mg/dL (0.3-1.0) 07/01/16 06:20 AST 17 U/L (13-39) 07/01/16 06:20 ALT 6 U/L (7-52) L 07/01/16 06:20 Alkaline Phosphatase 86 U/L (34-104) 07/01/16 06:20 C-Reactive Protein 10.7 mg/dL (0.0-0.9) H 06/29/16 06:00 Total Protein 6.3 gm/dL (6.0-8.3) 07/01/16 06:20 Albumin 2.9 gm/dL (3.7-5.3) L 07/01/16 06:20 Globulin 3.4 gm/dL 07/01/16 06:20 Albumin/Globulin Ratio 0.9 (1.0-1.8) L 07/01/16 06:20 TSH 1.52 uIU/ml (0.34-5.60) 06/27/16 06:40 Vancomycin Trough 9.5 ug/mL (10-20) L 06/30/16 06:05 - Physical Exam Vitals and I&O: Vital Signs Temp 97.5 F 07/02/16 07:45 Pulse 84 07/02/16 07:45 Resp 18 07/02/16 07:45 BP 142/61 07/02/16 07:45 Pulse Ox 94 07/02/16 07:45 Intake & Output 07/01/16 07/02/16 07/02/16 18:59 06:59 18:59 Intake Total 296.667 Balance 296.667 Intake: Intake, IV Amount 56.667 Piperacillin Sodium/ 56.667 Tazobact 3.375 gm In Sodium Chloride 0.9% 50 ml @ 100 mls/hr IV Q8HR [facility] Rx#:[id number] Oral 240 Other: # Voids 2 Active Medications: Current Medications Acetaminophen (Tylenol) 650 mg PO Q6H PRN PRN Reason: FEVER 101, MILD PAIN Stop: 08/25/16 03:02 Last Admin: 07/02/16 00:37 Dose: 650 mg Acetaminophen/Hydrocodone Bitart ([place] 5mg/325mg) 1 tab PO Q6H [facility] Stop: 08/31/16 09:14 Aspirin (Aspirin Chewable) 81 mg PO DAILY [facility] Stop: 08/29/16 08:59 Last Admin: 07/02/16 08:19 Dose: 81 mg Carbidopa/Levodopa (Sinemet 25mg-100 Mg) 1 tab PO TID [facility] Stop: 08/25/16 08:59 Last Admin: 07/02/16 08:19 Dose: 1 tab Cilostazol (Pletal) 100 mg PO BID [facility] Stop: 08/29/16 08:59 Last Admin: 07/02/16 08:19 Dose: 100 mg Clonidine HCl (Catapres) 0.1 mg PO Q8HR PRN PRN Reason: DBP >90 Stop: 08/29/16 08:48 Last Admin: 06/30/16 16:43 Dose: 0.1 mg Clopidogrel Bisulfate (Plavix) 75 mg PO DAILY [facility] Stop: 08/29/16 08:59 Last Admin: 07/02/16 08:19 Dose: 75 mg Enoxaparin Sodium (Lovenox) 30 mg SUBQ Q12HR [facility] Stop: 08/25/16 13:59 Last Admin: 07/02/16 08:20 Dose: 30 mg Piperacillin Sod/Tazobactam (Sod 3.375 gm/ Sodium Chloride) 50 mls @ 100 mls/ hr IV Q8HR [facility] Stop: 08/25/16 04:59 Last Admin: 07/02/16 05:29 Dose: 100 mls/hr Sodium Chloride (Nacl 0.9%) 1,000 mls @ 50 mls/hr IV .Q20H [facility] Stop: 08/25/16 03:14 Last Admin: 06/30/16 00:58 Dose: 50 mls/hr Levofloxacin (Levaquin Pb) 500 mg in 100 mls @ 100 mls/hr IV Q24HR [facility] Stop: 08/29/16 22:59 Last Admin: 07/02/16 00:33 Dose: 100 mls/hr Vancomycin HCl 1.25 gm/ Sodium (Chloride) 500 mls @ 250 mls/hr IV Q24H [facility] Stop: 08/30/16 09:59 Last Admin: 07/01/16 15:28 Dose: 250 mls/hr Potassium Chloride 40 meq/Lidocaine HCl 25 mg/ Sodium Chloride 272.5 mls @ 68 mls/hr IV X1 ONE Stop: 07/02/16 12:54 Insulin Aspart (Novolog Insulin Sliding Scale) 0 units SUBQ ACHS [facility] PRN Reason: Protocol Stop: 08/25/16 07:29 Last Admin: 07/01/16 21:27 Dose: 9 units Lorazepam (Ativan) 1 mg IVP Q8HR PRN; Protocol PRN Reason: Agitation Stop: 08/26/16 23:27 Last Admin: 06/30/16 20:55 Dose: 1 mg Miscellaneous (Vancomycin Iv Per Pharmacy) 1 ea MC DAILY [facility] Stop: 08/30/16 08:59 Morphine Sulfate (Morphine) 1 mg IVP Q4HR PRN PRN Reason: Pain (Severe) Stop: 08/25/16 20:54 Last Admin: 07/02/16 08:20 Dose: 1 mg Vitamin D (Vitamin D3) 2,000 iu PO DAILY [facility] Stop: 08/29/16 08:59 Last Admin: 07/02/16 08:19 Dose: 2,000 iu General: Alert, Oriented x3, Mild distress HEENT: Atraumatic Neck: Supple Cardiovascular: Regular rate Lungs: Clear to auscultation Abdomen: Bowel sounds, Soft Extremities: Other (ulcers clean and vacum in right leg.) Neurological: Other (Non ambulatory) Skin: Other (Warm and dry) Psych/Mental Status: Mental status NL - Procedures Procedures: Procedures Procedure Code Date EXCISION OF RIGHT TARSAL, OPEN APPROACH [id number] 06/26/16 REMOVAL OF PRESSURE SORE 21477 06/26/16 Assessment/Plan - Assessment Assessment: Patient is awake, in some distress secondary to pain. Today WBC still high. Bone scan shows no osteomyelitis. Arterial graft done - Plan Plan: Case is discussed with family and explain poor prognosis. Planning discharge starting to tranfer patient to SNF. On claudiao and king Nutritional Asmnt/Malnutr-PDOC - Dietary Evaluation Malnutrition Findings (Please click <Entered> for more info): Nutritional Asmnt/Malnutrition Start: 06/26/16 09: 58 Text: Status: Complete Freq: Document 06/26/16 09:58 ROXANNE (Rec: 06/26/16 10:14 [email or web address] [email or web address]- [email or web address]) Nutritional Asmnt/Malnutrition Patient General Information Nutritional Screening High Risk Screening Diagnosis Foot cellulitis (reason for visit) Pertinent Medical Hx/Surgical Hx diabetes and parkinson's disease Subjective Information Patient was transferred to this hospital with foot cellulitis. Patient lying in bed with granddaughter at bedside. Per granddaughter, patient's blood sugar is better controlled at home and doesn't usually go above 200 ( now 335). Patient does not follow a diabetic diet or know what foods affect blood sugar . Provided granddaughter with DM diet education including handouts on food sources of carbohydrates, meal planning and serving sizes. Current Diet Order/ Nutrition Support [facility] / S.O Indicated Pertinent Medications vitamin D, novolog Pertinent Labs (06/26) Na 132, Glucose 346, 335, Albumin 3 Nutritional Hx/Data Height 1.55 m Height (Calculated Centimeters) 154.9 Current Weight (lbs) 64.41 kg Weight (Calculated Kilograms) 64.4 Weight (Calculated Grams) 48929.1 [place] Body Weight 105 % [place] Body Weight 135 Recent Weight Change No Weight Status Overweight GI Symptoms GI Symptoms None Food Allergies No Cultural/Ethnic/Episcopal Belief none indicated Usual diet at home regular Skin Integrity/Comment: 3+ non-pitting edema in R Leg, 2+ non-pitting edema in L leg , Kei 18, Estimated Nutritional Goals BEE in Kcals: Using Current wt Calories/Kcals/Kg 25-30 kcal/kg Kcals Calculated 3580-0105 kcal/day Protein: Using Current wt Protein g/k-1.2 gm/kg (wound healing) Protein Calculated 65-75 gm/day Fluid: ml 1797-2851 ml/day Nutritional Problem 2. Problem Problem Food and nutrition related knowledge deficit related to Etiology lack of prior education on DM diet aeb Signs/Symptoms: unable to recognize food sources of carbohydrates. 1. Problem Problem Altered nutrition related lab values related to Etiology uncontrolled hyperglycemia aeb Signs/Symptoms: glucose 346, 335 Intervention/Recommendation Comments 1. Continue 60gm CCHO diet as tolerated by patient. 2. DM diet education provided/ handouts given. 3. MD to continue to adjust insulin regimen for optimal glycemic control. Expected Outcomes/Goals Expected Outcomes/Goals oral intake >75% of meals, glucose improves (80-180), skin integrity improves, weight remains stable.
[2016-07-02] MEDS: Hydrocodone/APAP 5mg/325mg Tab PO SCH ×3 (10:12→22:46)
[2016-07-02] MEDS: INSULIN ASPART SLIDING SCALE 100 UNITS/ML UNIT SUBQ SCH ×4 (10:16→20:53)
--- NOTE | 2016-07-02 13:00 | General Progress Note ---
Subjective - Review of Systems Service Date: 07/02/16 Events since last encounter: still complaining of leg and foot pain color and warmth same Objective - Results Result Diagrams: 07/02/16 05:50 07/02/16 05:50 Recent Labs: Laboratory Last Values WBC 15.6 Th/cmm (4.8-10.8) H 07/02/16 05:50 RBC 3.39 Mil/cmm (3.80-5.20) L 07/02/16 05:50 Hgb 10.0 gm/dL (11.7-16.1) L 07/02/16 05:50 Hct 29.6 % (35.0-45.0) L 07/02/16 05:50 MCV 87.3 fl (81-100) 07/02/16 05:50 MCH 29.6 pg (27.0-31.0) 07/02/16 05:50 MCHC Differential 33.9 pg (28.0-36.0) 07/02/16 05:50 RDW 12.9 % (11.5-20.0) 07/02/16 05:50 Plt Count 281 Th/cmm (150-400) 07/02/16 05:50 MPV 7.8 fl 07/02/16 05:50 Neutrophils % 77.9 % (40.0-80.0) 06/30/16 06:05 Band Neutrophils % 2 % (0-10) 07/02/16 05:50 Lymphocytes % 15.6 % (20.0-50.0) L 06/30/16 06:05 Monocytes % 4.9 % (2.0-10.0) 06/30/16 06:05 Eosinophils % 0.5 % (0.0-5.0) 06/30/16 06:05 Basophils % 1.1 % (0.0-2.0) 06/30/16 06:05 Neutrophils (Manual) 74 % (40-80) 07/02/16 05:50 Lymphocytes 15 % (20-50) L 07/02/16 05:50 Monocytes 7 % (2-10) 07/02/16 05:50 Atypical Lymphocytes 2 % 07/02/16 05:50 Platelet Estimate ADEQUATE (NORMAL) 07/02/16 05:50 Platelet Morphology NORMAL (NORMAL) 07/02/16 05:50 RBC Morph Micro Appear NORMAL (NORMAL) 07/02/16 05:50 ESR 69 mm/hr (0-30) H 06/29/16 06:00 PT 10.4 SECONDS (9.5-11.5) 06/30/16 06:05 INR 1.00 (0.5-1.4) 06/30/16 06:05 PTT (Actin FS) 28.5 SECONDS (26.0-38.0) 06/30/16 06:05 Sodium 138 mEq/L (136-145) 07/02/16 05:50 Potassium 2.6 mEq/L (3.5-5.1) L* 07/02/16 05:50 Chloride 106 mEq/L (98-107) 07/02/16 05:50 Carbon Dioxide 23.1 mEq/L (21.0-31.0) 07/02/16 05:50 Anion Gap 11.5 (7.0-16.0) 07/02/16 05:50 BUN 9 mg/dL (7-25) 07/02/16 05:50 Creatinine 1.0 mg/dL (0.6-1.2) 07/02/16 05:50 Est GFR ( Amer) TNP 07/02/16 05:50 Est GFR (Non-Af Amer) TNP 07/02/16 05:50 BUN/Creatinine Ratio 9.0 07/02/16 05:50 Glucose 191 mg/dL (70-105) H 07/02/16 05:50 POC Glucose 203 MG/DL (70 - 105) H 07/02/16 05:18 Hemoglobin A1c % 11.1 % (4.0-6.0) H 06/26/16 06:45 Calcium 8.1 mg/dL (8.6-10.3) L 07/02/16 05:50 Total Bilirubin 0.5 mg/dL (0.3-1.0) 07/01/16 06:20 AST 17 U/L (13-39) 07/01/16 06:20 ALT 6 U/L (7-52) L 07/01/16 06:20 Alkaline Phosphatase 86 U/L (34-104) 07/01/16 06:20 C-Reactive Protein 10.7 mg/dL (0.0-0.9) H 06/29/16 06:00 Total Protein 6.3 gm/dL (6.0-8.3) 07/01/16 06:20 Albumin 2.9 gm/dL (3.7-5.3) L 07/01/16 06:20 Globulin 3.4 gm/dL 07/01/16 06:20 Albumin/Globulin Ratio 0.9 (1.0-1.8) L 07/01/16 06:20 TSH 1.52 uIU/ml (0.34-5.60) 06/27/16 06:40 Vancomycin Trough 9.8 ug/mL (10-20) L 07/02/16 09:15 - Physical Exam Vitals and I&O: Vital Signs Temp 97.5 F 07/02/16 07:45 Pulse 84 07/02/16 07:45 Resp 18 07/02/16 07:45 BP 142/61 07/02/16 07:45 Pulse Ox 94 07/02/16 07:45 Intake & Output 07/01/16 07/02/16 07/02/16 18:59 06:59 18:59 Intake Total 296.667 Balance 296.667 Intake: Intake, IV Amount 56.667 Piperacillin Sodium/ 56.667 Tazobact 3.375 gm In Sodium Chloride 0.9% 50 ml @ 100 mls/hr IV Q8HR [facility] Rx#:[id number] Oral 240 Other: # Voids 2 Active Medications: Current Medications Acetaminophen (Tylenol) 650 mg PO Q6H PRN PRN Reason: FEVER 101, MILD PAIN Stop: 08/25/16 03:02 Last Admin: 07/02/16 00:37 Dose: 650 mg Acetaminophen/Hydrocodone Bitart ([place] 5mg/325mg) 1 tab PO Q6H [facility] Stop: 08/31/16 09:14 Last Admin: 07/02/16 10:12 Dose: 1 tab Aspirin (Aspirin Chewable) 81 mg PO DAILY [facility] Stop: 08/29/16 08:59 Last Admin: 07/02/16 08:19 Dose: 81 mg Carbidopa/Levodopa (Sinemet 25mg-100 Mg) 1 tab PO TID [facility] Stop: 08/25/16 08:59 Last Admin: 07/02/16 08:19 Dose: 1 tab Cilostazol (Pletal) 100 mg PO BID [facility] Stop: 08/29/16 08:59 Last Admin: 07/02/16 08:19 Dose: 100 mg Clonidine HCl (Catapres) 0.1 mg PO Q8HR PRN PRN Reason: DBP >90 Stop: 08/29/16 08:48 Last Admin: 06/30/16 16:43 Dose: 0.1 mg Clopidogrel Bisulfate (Plavix) 75 mg PO DAILY [facility] Stop: 08/29/16 08:59 Last Admin: 07/02/16 08:19 Dose: 75 mg Enoxaparin Sodium (Lovenox) 30 mg SUBQ Q12HR [facility] Stop: 08/25/16 13:59 Last Admin: 07/02/16 08:20 Dose: 30 mg Piperacillin Sod/Tazobactam (Sod 3.375 gm/ Sodium Chloride) 50 mls @ 100 mls/ hr IV Q8HR [facility] Stop: 08/25/16 04:59 Last Admin: 07/02/16 05:29 Dose: 100 mls/hr Sodium Chloride (Nacl 0.9%) 1,000 mls @ 50 mls/hr IV .Q20H [facility] Stop: 08/25/16 03:14 Last Admin: 06/30/16 00:58 Dose: 50 mls/hr Levofloxacin (Levaquin Pb) 500 mg in 100 mls @ 100 mls/hr IV Q24HR [facility] Stop: 08/29/16 22:59 Last Admin: 07/02/16 00:33 Dose: 100 mls/hr Vancomycin HCl 1.25 gm/ Sodium (Chloride) 250 mls @ 165 mls/hr IV Q24H [facility] Stop: 08/31/16 15:59 Insulin Aspart (Novolog Insulin Sliding Scale) 0 units SUBQ ACHS [facility] PRN Reason: Protocol Stop: 08/25/16 07:29 Last Admin: 07/02/16 12:53 Dose: 7 units Lorazepam (Ativan) 1 mg IVP Q8HR PRN; Protocol PRN Reason: Agitation Stop: 08/26/16 23:27 Last Admin: 06/30/16 20:55 Dose: 1 mg Miscellaneous (Vancomycin Iv Per Pharmacy) 1 ea [facility] DAILY [facility] Stop: 08/30/16 08:59 Morphine Sulfate (Morphine) 1 mg IVP Q4HR PRN PRN Reason: Pain (Severe) Stop: 08/25/16 20:54 Last Admin: 07/02/16 08:20 Dose: 1 mg Vitamin D (Vitamin D3) 2,000 iu PO DAILY [facility] Stop: 08/29/16 08:59 Last Admin: 07/02/16 08:19 Dose: 2,000 iu - Procedures Procedures: Procedures Procedure Code Date EXCISION OF RIGHT TARSAL, OPEN APPROACH [id number] 06/26/16 REMOVAL OF PRESSURE SORE 48654 06/26/16 Nutritional Asmnt/Malnutr-PDOC - Dietary Evaluation Malnutrition Findings (Please click <Entered> for more info): Nutritional Asmnt/Malnutrition Start: 06/26/16 09: 58 Text: Status: Complete Freq: Document 06/26/16 09:58 ROXANNE (Rec: 06/26/16 10:14 [email or web address] [email or web address]- [email or web address]) Nutritional Asmnt/Malnutrition Patient General Information Nutritional Screening High Risk Screening Diagnosis Foot cellulitis (reason for visit) Pertinent Medical Hx/Surgical Hx diabetes and parkinson's disease Subjective Information Patient was transferred to this hospital with foot cellulitis. Patient lying in bed with granddaughter at bedside. Per granddaughter, patient's blood sugar is better controlled at home and doesn't usually go above 200 ( now 335). Patient does not follow a diabetic diet or know what foods affect blood sugar . Provided granddaughter with DM diet education including handouts on food sources of carbohydrates, meal planning and serving sizes. Current Diet Order/ Nutrition Support [address] [facility] / S.O Indicated Pertinent Medications vitamin D, novolog Pertinent Labs (06/26) Na 132, Glucose 346, 335, Albumin 3 Nutritional Hx/Data Height 1.55 m Height (Calculated Centimeters) 154.9 Current Weight (lbs) 64.41 kg Weight (Calculated Kilograms) 64.4 Weight (Calculated Grams) 28361.1 [place] Body Weight 105 % [place] Body Weight 135 Recent Weight Change No Weight Status Overweight GI Symptoms GI Symptoms None Food Allergies No Cultural/Ethnic/Spiritism Belief none indicated Usual diet at home regular Skin Integrity/Comment: 3+ non-pitting edema in R Leg, 2+ non-pitting edema in L leg , Kei 18, Estimated Nutritional Goals BEE in Kcals: Using Current wt Calories/Kcals/Kg 25-30 kcal/kg Kcals Calculated 0321-0657 kcal/day Protein: Using Current wt Protein g/k-1.2 gm/kg (wound healing) Protein Calculated 65-75 gm/day Fluid: ml 6419-4043 ml/day Nutritional Problem 2. Problem Problem Food and nutrition related knowledge deficit related to Etiology lack of prior education on DM diet aeb Signs/Symptoms: unable to recognize food sources of carbohydrates. 1. Problem Problem Altered nutrition related lab values related to Etiology uncontrolled hyperglycemia aeb Signs/Symptoms: glucose 346, 335 Intervention/Recommendation Comments 1. Continue 60gm CCHO diet as tolerated by patient. 2. DM diet education provided/ handouts given. 3. MD to continue to adjust insulin regimen for optimal glycemic control. Expected Outcomes/Goals Expected Outcomes/Goals oral intake >75% of meals, glucose improves (80-180), skin integrity improves, weight remains stable.
--- NOTE | 2016-07-02 13:30 | Infectious Disease Prog Note ---
Infectious Disease Subjective - Review of Systems Service Date: 07/02/16 Subjective: There is no new change, there is no fever. c/o pain in her right leg. Infectious Disease Objective - Results Result Diagrams: 07/02/16 05:50 07/02/16 05:50 Recent Labs: Laboratory Last Values WBC 15.6 Th/cmm (4.8-10.8) H 07/02/16 05:50 RBC 3.39 Mil/cmm (3.80-5.20) L 07/02/16 05:50 Hgb 10.0 gm/dL (11.7-16.1) L 07/02/16 05:50 Hct 29.6 % (35.0-45.0) L 07/02/16 05:50 MCV 87.3 fl (81-100) 07/02/16 05:50 MCH 29.6 pg (27.0-31.0) 07/02/16 05:50 MCHC Differential 33.9 pg (28.0-36.0) 07/02/16 05:50 RDW 12.9 % (11.5-20.0) 07/02/16 05:50 Plt Count 281 Th/cmm (150-400) 07/02/16 05:50 MPV 7.8 fl 07/02/16 05:50 Neutrophils % 77.9 % (40.0-80.0) 06/30/16 06:05 Band Neutrophils % 2 % (0-10) 07/02/16 05:50 Lymphocytes % 15.6 % (20.0-50.0) L 06/30/16 06:05 Monocytes % 4.9 % (2.0-10.0) 06/30/16 06:05 Eosinophils % 0.5 % (0.0-5.0) 06/30/16 06:05 Basophils % 1.1 % (0.0-2.0) 06/30/16 06:05 Neutrophils (Manual) 74 % (40-80) 07/02/16 05:50 Lymphocytes 15 % (20-50) L 07/02/16 05:50 Monocytes 7 % (2-10) 07/02/16 05:50 Atypical Lymphocytes 2 % 07/02/16 05:50 Platelet Estimate ADEQUATE (NORMAL) 07/02/16 05:50 Platelet Morphology NORMAL (NORMAL) 07/02/16 05:50 RBC Morph Micro Appear NORMAL (NORMAL) 07/02/16 05:50 ESR 69 mm/hr (0-30) H 06/29/16 06:00 PT 10.4 SECONDS (9.5-11.5) 06/30/16 06:05 INR 1.00 (0.5-1.4) 06/30/16 06:05 PTT (Actin FS) 28.5 SECONDS (26.0-38.0) 06/30/16 06:05 Sodium 138 mEq/L (136-145) 07/02/16 05:50 Potassium 2.6 mEq/L (3.5-5.1) L* 07/02/16 05:50 Chloride 106 mEq/L (98-107) 07/02/16 05:50 Carbon Dioxide 23.1 mEq/L (21.0-31.0) 07/02/16 05:50 Anion Gap 11.5 (7.0-16.0) 07/02/16 05:50 BUN 9 mg/dL (7-25) 07/02/16 05:50 Creatinine 1.0 mg/dL (0.6-1.2) 07/02/16 05:50 Est GFR ( Amer) TNP 07/02/16 05:50 Est GFR (Non-Af Amer) TNP 07/02/16 05:50 BUN/Creatinine Ratio 9.0 07/02/16 05:50 Glucose 191 mg/dL (70-105) H 07/02/16 05:50 POC Glucose 203 MG/DL (70 - 105) H 07/02/16 05:18 Hemoglobin A1c % 11.1 % (4.0-6.0) H 06/26/16 06:45 Calcium 8.1 mg/dL (8.6-10.3) L 07/02/16 05:50 Total Bilirubin 0.5 mg/dL (0.3-1.0) 07/01/16 06:20 AST 17 U/L (13-39) 07/01/16 06:20 ALT 6 U/L (7-52) L 07/01/16 06:20 Alkaline Phosphatase 86 U/L (34-104) 07/01/16 06:20 C-Reactive Protein 10.7 mg/dL (0.0-0.9) H 06/29/16 06:00 Total Protein 6.3 gm/dL (6.0-8.3) 07/01/16 06:20 Albumin 2.9 gm/dL (3.7-5.3) L 07/01/16 06:20 Globulin 3.4 gm/dL 07/01/16 06:20 Albumin/Globulin Ratio 0.9 (1.0-1.8) L 07/01/16 06:20 TSH 1.52 uIU/ml (0.34-5.60) 06/27/16 06:40 Vancomycin Trough 9.8 ug/mL (10-20) L 07/02/16 09:15 - Physical Exam Vitals and I&O: Vital Signs Temp 97.5 F 07/02/16 07:45 Pulse 84 07/02/16 07:45 Resp 18 07/02/16 07:45 BP 142/61 07/02/16 07:45 Pulse Ox 94 07/02/16 07:45 Intake & Output 07/01/16 07/02/16 07/02/16 18:59 06:59 18:59 Intake Total 296.667 Balance 296.667 Intake: Intake, IV Amount 56.667 Piperacillin Sodium/ 56.667 Tazobact 3.375 gm In Sodium Chloride 0.9% 50 ml @ 100 mls/hr IV Q8HR [facility] Rx#:[id number] Oral 240 Other: # Voids 2 Active Medications: Current Medications Acetaminophen (Tylenol) 650 mg PO Q6H PRN PRN Reason: FEVER 101, MILD PAIN Stop: 08/25/16 03:02 Last Admin: 07/02/16 00:37 Dose: 650 mg Acetaminophen/Hydrocodone Bitart ([place] 5mg/325mg) 1 tab PO Q6H [facility] Stop: 08/31/16 09:14 Last Admin: 07/02/16 10:12 Dose: 1 tab Aspirin (Aspirin Chewable) 81 mg PO DAILY [facility] Stop: 08/29/16 08:59 Last Admin: 07/02/16 08:19 Dose: 81 mg Carbidopa/Levodopa (Sinemet 25mg-100 Mg) 1 tab PO TID SIRISHA Stop: 08/25/16 08:59 Last Admin: 07/02/16 08:19 Dose: 1 tab Cilostazol (Pletal) 100 mg PO BID [facility] Stop: 08/29/16 08:59 Last Admin: 07/02/16 08:19 Dose: 100 mg Clonidine HCl (Catapres) 0.1 mg PO Q8HR PRN PRN Reason: DBP >90 Stop: 08/29/16 08:48 Last Admin: 06/30/16 16:43 Dose: 0.1 mg Clopidogrel Bisulfate (Plavix) 75 mg PO DAILY [facility] Stop: 08/29/16 08:59 Last Admin: 07/02/16 08:19 Dose: 75 mg Enoxaparin Sodium (Lovenox) 30 mg SUBQ Q12HR [facility] Stop: 08/25/16 13:59 Last Admin: 07/02/16 08:20 Dose: 30 mg Piperacillin Sod/Tazobactam (Sod 3.375 gm/ Sodium Chloride) 50 mls @ 100 mls/ hr IV Q8HR [facility] Stop: 08/25/16 04:59 Last Admin: 07/02/16 05:29 Dose: 100 mls/hr Sodium Chloride (Nacl 0.9%) 1,000 mls @ 50 mls/hr IV .Q20H [facility] Stop: 08/25/16 03:14 Last Admin: 06/30/16 00:58 Dose: 50 mls/hr Levofloxacin (Levaquin Pb) 500 mg in 100 mls @ 100 mls/hr IV Q24HR [facility] Stop: 08/29/16 22:59 Last Admin: 07/02/16 00:33 Dose: 100 mls/hr Vancomycin HCl 1.25 gm/ Sodium (Chloride) 250 mls @ 165 mls/hr IV Q24H [facility] Stop: 08/31/16 15:59 Insulin Aspart (Novolog Insulin Sliding Scale) 0 units SUBQ ACHS SIRISHA PRN Reason: Protocol Stop: 08/25/16 07:29 Last Admin: 07/02/16 12:53 Dose: 7 units Lorazepam (Ativan) 1 mg IVP Q8HR PRN; Protocol PRN Reason: Agitation Stop: 08/26/16 23:27 Last Admin: 06/30/16 20:55 Dose: 1 mg Miscellaneous (Vancomycin Iv Per Pharmacy) 1 ea [facility] DAILY [facility] Stop: 08/30/16 08:59 Morphine Sulfate (Morphine) 1 mg IVP Q4HR PRN PRN Reason: Pain (Severe) Stop: 08/25/16 20:54 Last Admin: 07/02/16 08:20 Dose: 1 mg Vitamin D (Vitamin D3) 2,000 iu PO DAILY S[facility] Stop: 08/29/16 08:59 Last Admin: 07/02/16 08:19 Dose: 2,000 iu - Procedures Procedures: Procedures Procedure Code Date EXCISION OF RIGHT TARSAL, OPEN APPROACH [id number] 06/26/16 REMOVAL OF PRESSURE SORE 61094 06/26/16 Infectious Disease Assmt/Plan - Assessment Assessment: Impression: 1. Right heel and foot ulcer with bone exposed. Bone scan is negative for osteomyelitis. 2. PAD. 3. DM2. Recommendations: Will change antibiotics to levaquin IV which can be changed to levaquin po for 10 more days. wound care. Nutritional Asmnt/Malnutr-PDOC - Dietary Evaluation Malnutrition Findings (Please click <Entered> for more info): Nutritional Asmnt/Malnutrition Start: 06/26/16 09: 58 Text: Status: Complete Freq: Document 06/26/16 09:58 MMCAIT (Rec: 06/26/16 10:14 [email or web address] LEMONS- [email or web address]) Nutritional Asmnt/Malnutrition Patient General Information Nutritional Screening High Risk Screening Diagnosis Foot cellulitis (reason for visit) Pertinent Medical Hx/Surgical Hx diabetes and parkinson's disease Subjective Information Patient was transferred to this hospital with foot cellulitis. Patient lying in bed with granddaughter at bedside. Per granddaughter, patient's blood sugar is better controlled at home and doesn't usually go above 200 ( now 335). Patient does not follow a diabetic diet or know what foods affect blood sugar . Provided granddaughter with DM diet education including handouts on food sources of carbohydrates, meal planning and serving sizes. Current Diet Order/ Nutrition Support 60 gm [facility] Patient / S.O Indicated Pertinent Medications vitamin D, novolog Pertinent Labs (06/26) Na 132, Glucose 346, 335, Albumin 3 Nutritional Hx/Data Height 1.55 m Height (Calculated Centimeters) 154.9 Current Weight (lbs) 64.41 kg Weight (Calculated Kilograms) 64.4 Weight (Calculated Grams) 42722.1 [place] Body Weight 105 % [place] Body Weight 135 Recent Weight Change No Weight Status Overweight GI Symptoms GI Symptoms None Food Allergies No Cultural/Ethnic/Evangelical Belief none indicated Usual diet at home regular Skin Integrity/Comment: 3+ non-pitting edema in R Leg, 2+ non-pitting edema in L leg , Kei 18, Estimated Nutritional Goals BEE in Kcals: Using Current wt Calories/Kcals/Kg 25-30 kcal/kg Kcals Calculated 7326-9207 kcal/day Protein: Using Current wt Protein g/k-1.2 gm/kg (wound healing) Protein Calculated 65-75 gm/day Fluid: ml 3012-3428 ml/day Nutritional Problem 2. Problem Problem Food and nutrition related knowledge deficit related to Etiology lack of prior education on DM diet aeb Signs/Symptoms: unable to recognize food sources of carbohydrates. 1. Problem Problem Altered nutrition related lab values related to Etiology uncontrolled hyperglycemia aeb Signs/Symptoms: glucose 346, 335 Intervention/Recommendation Comments 1. Continue 60gm CCHO diet as tolerated by patient. 2. DM diet education provided/ handouts given. 3. MD to continue to adjust insulin regimen for optimal glycemic control. Expected Outcomes/Goals Expected Outcomes/Goals oral intake >75% of meals, glucose improves (80-180), skin integrity improves, weight remains stable.
[2016-07-02] MEDS: Sodium Chloride 0.9% 1,000 ML IV SCH (23:11)
[2016-07-03] MEDS: Hydrocodone/APAP 5mg/325mg Tab PO SCH ×3 (05:22→15:35)
[2016-07-03 06:43] LABS: % EOSINOPHILS 1.3 % (0.0-5.0); MEAN CORPUSCULAR HEMOGLOBIN 30.2 pg (27.0-31.0); NEUTROPHILE ABSOLUTE 10.3 Th/cmm (1.8-8.0)
[2016-07-03 06:47] LABS: % BASOPHILS 0.5 % (0.0-2.0); % LYMPHOCYTES 16.2 % (20.0-50.0); % MONOCYTES 5.3 % (2.0-10.0); % NEUTROPHILS 76.7 % (40.0-80.0); HEMATOCRIT 27.1 % (35.0-45.0); HEMOGLOBIN 9.3 gm/dL (11.7-16.1); MEAN CELL VOLUME 87.7 fl (81-100); MEAN CORPUSCULAR HGB CONC 34.5 pg (28.0-36.0); MEAN PLATELET VOLUME 7.9 fl; PLATELET COUNT 313 Th/cmm (150-400); RED BLOOD COUNT 3.09 Mil/cmm (3.80-5.20); RED CELL DISTRIBUTION WIDTH 12.5 % (11.5-20.0)
[2016-07-03 06:56] LABS: WHITE BLOOD COUNT 13.5 Th/cmm (4.8-10.8)
[2016-07-03 06:59] LABS: ALB/GLOB RATIO 0.8 (1.0-1.8); ALKALINE PHOSPHATASE 67 U/L (34-104); BILIRUBIN,TOTAL 0.4 mg/dL (0.3-1.0); BUN - UREA NITROGEN 9 mg/dL (7-25); BUN/CREATININE RATIO 8.2; CARBON DIOXIDE 22.5 mEq/L (21.0-31.0); CHLORIDE 109 mEq/L (98-107); CREATININE - SERUM 1.1 mg/dL (0.6-1.2); GLUCOSE 214 mg/dL (70-105); SGOT 13 U/L (13-39); SGPT/ALT < 3 U/L (7-52); SODIUM SERUM 140 mEq/L (136-145)
[2016-07-03] MEDS: INSULIN ASPART SLIDING SCALE 100 UNITS/ML UNIT SUBQ SCH ×3 (07:54→16:39)
[2016-07-03] MEDS ORDERED: Potassium Chloride 40 MEQ, Lidocaine 1% 20mL Vial 25 MG in Sodium Chloride 0.9% 250 ML IV ONE (08:16)
[2016-07-03] MEDS: Aspirin 81mg Chewable Tab PO SCH (08:45)
[2016-07-03] MEDS: Vitamin D3 2,000 IU SGL PO SCH (08:46)
[2016-07-03] MEDS: Enoxaparin 30 mg/0.3 mL 0.3mL Syr SUBQ SCH (08:48)
--- NOTE | 2016-07-03 09:30 | General Progress Note ---
Subjective - Review of Systems Service Date: 07/03/16 Subjective: Pain is better. Objective - Results Result Diagrams: 07/03/16 06:20 07/03/16 06:20 Recent Labs: Laboratory Last Values WBC 13.5 Th/cmm (4.8-10.8) H 07/03/16 06:20 RBC 3.09 Mil/cmm (3.80-5.20) L 07/03/16 06:20 Hgb 9.3 gm/dL (11.7-16.1) L 07/03/16 06:20 Hct 27.1 % (35.0-45.0) L 07/03/16 06:20 MCV 87.7 fl (81-100) 07/03/16 06:20 MCH 30.2 pg (27.0-31.0) 07/03/16 06:20 MCHC Differential 34.5 pg (28.0-36.0) 07/03/16 06:20 RDW 12.5 % (11.5-20.0) 07/03/16 06:20 Plt Count 313 Th/cmm (150-400) 07/03/16 06:20 MPV 7.9 fl 07/03/16 06:20 Neutrophils % 76.7 % (40.0-80.0) 07/03/16 06:20 Band Neutrophils % 2 % (0-10) 07/02/16 05:50 Lymphocytes % 16.2 % (20.0-50.0) L 07/03/16 06:20 Monocytes % 5.3 % (2.0-10.0) 07/03/16 06:20 Eosinophils % 1.3 % (0.0-5.0) 07/03/16 06:20 Basophils % 0.5 % (0.0-2.0) 07/03/16 06:20 Neutrophils (Manual) 74 % (40-80) 07/02/16 05:50 Lymphocytes 15 % (20-50) L 07/02/16 05:50 Monocytes 7 % (2-10) 07/02/16 05:50 Atypical Lymphocytes 2 % 07/02/16 05:50 Platelet Estimate ADEQUATE (NORMAL) 07/02/16 05:50 Platelet Morphology NORMAL (NORMAL) 07/02/16 05:50 RBC Morph Micro Appear NORMAL (NORMAL) 07/02/16 05:50 ESR 69 mm/hr (0-30) H 06/29/16 06:00 PT 10.4 SECONDS (9.5-11.5) 06/30/16 06:05 INR 1.00 (0.5-1.4) 06/30/16 06:05 PTT (Actin FS) 28.5 SECONDS (26.0-38.0) 06/30/16 06:05 Sodium 140 mEq/L (136-145) 07/03/16 06:20 Potassium mEq/L (3.5-5.1) 07/03/16 06:20 Chloride 109 mEq/L (98-107) H 07/03/16 06:20 Carbon Dioxide 22.5 mEq/L (21.0-31.0) 07/03/16 06:20 Anion Gap 11.0 (7.0-16.0) 07/03/16 06:20 BUN 9 mg/dL (7-25) 07/03/16 06:20 Creatinine 1.1 mg/dL (0.6-1.2) 07/03/16 06:20 Est GFR ( Amer) TNP 07/03/16 06:20 Est GFR (Non-Af Amer) TNP 07/03/16 06:20 BUN/Creatinine Ratio 8.2 07/03/16 06:20 Glucose 214 mg/dL (70-105) H 07/03/16 06:20 POC Glucose 186 MG/DL (70 - 105) H 07/03/16 05:12 Hemoglobin A1c % 11.1 % (4.0-6.0) H 06/26/16 06:45 Calcium 8.0 mg/dL (8.6-10.3) L 07/03/16 06:20 Total Bilirubin 0.4 mg/dL (0.3-1.0) 07/03/16 06:20 AST 13 U/L (13-39) 07/03/16 06:20 ALT < 3 U/L (7-52) L 07/03/16 06:20 Alkaline Phosphatase 67 U/L (34-104) 07/03/16 06:20 C-Reactive Protein 10.7 mg/dL (0.0-0.9) H 06/29/16 06:00 Total Protein 5.6 gm/dL (6.0-8.3) L 07/03/16 06:20 Albumin 2.4 gm/dL (3.7-5.3) L 07/03/16 06:20 Globulin 3.2 gm/dL 07/03/16 06:20 Albumin/Globulin Ratio 0.8 (1.0-1.8) L 07/03/16 06:20 TSH 1.52 uIU/ml (0.34-5.60) 06/27/16 06:40 Vancomycin Trough 9.8 ug/mL (10-20) L 07/02/16 09:15 - Physical Exam Vitals and I&O: Vital Signs Temp 98.7 F 07/03/16 08:06 Pulse 79 07/03/16 08:06 Resp 18 07/03/16 08:06 BP 127/53 07/03/16 08:06 Pulse Ox 95 07/03/16 08:06 Intake & Output 07/02/16 07/03/16 07/03/16 18:59 06:59 18:59 Intake Total 600 150 Balance 600 150 Intake: Intake, IV Amount 50 Piperacillin Sodium/ 50 Tazobact 3.375 gm In Sodium Chloride 0.9% 50 ml @ 100 mls/hr IV Q8HR [facility] Rx#:[id number] Oral 600 100 Other: # Voids 3 2 Active Medications: Current Medications Acetaminophen (Tylenol) 650 mg PO Q6H PRN PRN Reason: FEVER 101, MILD PAIN Stop: 08/25/16 03:02 Last Admin: 07/02/16 00:37 Dose: 650 mg Acetaminophen/Hydrocodone Bitart ([place] 5mg/325mg) 1 tab PO Q6H SIRISHA Stop: 08/31/16 09:14 Last Admin: 07/03/16 09:09 Dose: 1 tab Aspirin (Aspirin Chewable) 81 mg PO DAILY [facility] Stop: 08/29/16 08:59 Last Admin: 07/03/16 08:45 Dose: 81 mg Carbidopa/Levodopa (Sinemet 25mg-100 Mg) 1 tab PO TID SIRISHA Stop: 08/25/16 08:59 Last Admin: 07/03/16 08:46 Dose: 1 tab Cilostazol (Pletal) 100 mg PO BID [facility] Stop: 08/29/16 08:59 Last Admin: 07/03/16 08:45 Dose: 100 mg Clonidine HCl (Catapres) 0.1 mg PO Q8HR PRN PRN Reason: DBP >90 Stop: 08/29/16 08:48 Last Admin: 06/30/16 16:43 Dose: 0.1 mg Clopidogrel Bisulfate (Plavix) 75 mg PO DAILY [facility] Stop: 08/29/16 08:59 Last Admin: 07/03/16 08:46 Dose: 75 mg Enoxaparin Sodium (Lovenox) 30 mg SUBQ Q12HR [facility] Stop: 08/25/16 13:59 Last Admin: 07/03/16 08:48 Dose: 30 mg Piperacillin Sod/Tazobactam (Sod 3.375 gm/ Sodium Chloride) 50 mls @ 100 mls/ hr IV Q8HR [facility] Stop: 08/25/16 04:59 Last Admin: 07/03/16 05:17 Dose: 100 mls/hr Sodium Chloride (Nacl 0.9%) 1,000 mls @ 50 mls/hr IV .Q20H [facility] Stop: 08/25/16 03:14 Last Admin: 07/02/16 23:11 Dose: 50 mls/hr Levofloxacin (Levaquin Pb) 500 mg in 100 mls @ 100 mls/hr IV Q24HR [facility] Stop: 08/29/16 22:59 Last Admin: 07/02/16 23:09 Dose: 100 mls/hr Vancomycin HCl 1.25 gm/ Sodium (Chloride) 250 mls @ 165 mls/hr IV Q24H [facility] Stop: 08/31/16 15:59 Last Admin: 07/02/16 15:19 Dose: 165 mls/hr Potassium Chloride 40 meq/Lidocaine HCl 25 mg/ Sodium Chloride 272.5 mls @ 68 mls/hr IV X1 ONE Stop: 07/03/16 12:16 Insulin Aspart (Novolog Insulin Sliding Scale) 0 units SUBQ ACHS SIRISHA PRN Reason: Protocol Stop: 08/25/16 07:29 Last Admin: 07/03/16 07:54 Dose: 3 units Lorazepam (Ativan) 1 mg IVP Q8HR PRN; Protocol PRN Reason: Agitation Stop: 08/26/16 23:27 Last Admin: 06/30/16 20:55 Dose: 1 mg Miscellaneous (Vancomycin Iv Per Pharmacy) 1 ea [facility] DAILY [facility] Stop: 08/30/16 08:59 Morphine Sulfate (Morphine) 1 mg IVP Q4HR PRN PRN Reason: Pain (Severe) Stop: 08/25/16 20:54 Last Admin: 07/02/16 08:20 Dose: 1 mg Vitamin D (Vitamin D3) 2,000 iu PO DAILY [facility] Stop: 08/29/16 08:59 Last Admin: 07/03/16 08:46 Dose: 2,000 iu General: Alert, Oriented x3, Cooperative HEENT: Atraumatic Neck: Supple Cardiovascular: Regular rate Lungs: Clear to auscultation Abdomen: Bowel sounds, Soft Extremities: Other (Bilateral pedal pulses not palpable. ulcers in bot legs are clean.) Neurological: Other (Non ambulatory) Skin: Other (Bilateral leg ulcers) Psych/Mental Status: Mental status NL - Procedures Procedures: Procedures Procedure Code Date EXCISION OF RIGHT TARSAL, OPEN APPROACH [id number] 06/26/16 REMOVAL OF PRESSURE SORE 15321 06/26/16 Assessment/Plan - Assessment Assessment: Patient is awake, calm in no acute distress. Pain improved. Today WBC decreased but still high. Bone scan shows no osteomyelitis. Arterial graft done. Patient will be discharge to [facility]. [facility]. - Plan Plan: Case is discussed with son Kiel Pierre, and explain poor prognosis the plan to DC patient. Nutritional Asmnt/Malnutr-PDOC - Dietary Evaluation Malnutrition Findings (Please click <Entered> for more info): Nutritional Asmnt/Malnutrition Start: 06/26/16 09: 58 Text: Status: Complete Freq: Document 06/26/16 09:58 [email or web address] (Rec: 06/26/16 10:14 [email or web address] LEMONS- [email or web address]) Nutritional Asmnt/Malnutrition Patient General Information Nutritional Screening High Risk Screening Diagnosis Foot cellulitis (reason for visit) Pertinent Medical Hx/Surgical Hx diabetes and parkinson's disease Subjective Information Patient was transferred to this hospital with foot cellulitis. Patient lying in bed with granddaughter at bedside. Per granddaughter, patient's blood sugar is better controlled at home and doesn't usually go above 200 ( now 335). Patient does not follow a diabetic diet or know what foods affect blood sugar . Provided granddaughter with DM diet education including handouts on food sources of carbohydrates, meal planning and serving sizes. Current Diet Order/ Nutrition Support [facility] Patient / S.O Indicated Pertinent Medications vitamin D, novolog Pertinent Labs (06/26) Na 132, Glucose 346, 335, Albumin 3 Nutritional Hx/Data Height 1.55 m Height (Calculated Centimeters) 154.9 Current Weight (lbs) 64.41 kg Weight (Calculated Kilograms) 64.4 Weight (Calculated Grams) 25351.1 [place] Body Weight 105 % [place] Body Weight 135 Recent Weight Change No Weight Status Overweight GI Symptoms GI Symptoms None Food Allergies No Cultural/Ethnic/Christianity Belief none indicated Usual diet at home regular Skin Integrity/Comment: 3+ non-pitting edema in R Leg, 2+ non-pitting edema in L leg , Kei 18, Estimated Nutritional Goals BEE in Kcals: Using Current wt Calories/Kcals/Kg 25-30 kcal/kg Kcals Calculated 2504-0105 kcal/day Protein: Using Current wt Protein g/k-1.2 gm/kg (wound healing) Protein Calculated 65-75 gm/day Fluid: ml 6647-5769 ml/day Nutritional Problem 2. Problem Problem Food and nutrition related knowledge deficit related to Etiology lack of prior education on DM diet aeb Signs/Symptoms: unable to recognize food sources of carbohydrates. 1. Problem Problem Altered nutrition related lab values related to Etiology uncontrolled hyperglycemia aeb Signs/Symptoms: glucose 346, 335 Intervention/Recommendation Comments 1. Continue 60gm CCHO diet as tolerated by patient. 2. DM diet education provided/ handouts given. 3. MD to continue to adjust insulin regimen for optimal glycemic control. Expected Outcomes/Goals Expected Outcomes/Goals oral intake >75% of meals, glucose improves (80-180), skin integrity improves, weight remains stable.
--- NOTE | 2016-07-03 12:54 | General Progress Note ---
Subjective - Review of Systems Service Date: 07/03/16 Events since last encounter: leg and foot color is good warmth improved pain is minimal Objective - Results Result Diagrams: 07/03/16 06:20 07/03/16 06:20 Recent Labs: Laboratory Last Values WBC 13.5 Th/cmm (4.8-10.8) H 07/03/16 06:20 RBC 3.09 Mil/cmm (3.80-5.20) L 07/03/16 06:20 Hgb 9.3 gm/dL (11.7-16.1) L 07/03/16 06:20 Hct 27.1 % (35.0-45.0) L 07/03/16 06:20 MCV 87.7 fl (81-100) 07/03/16 06:20 MCH 30.2 pg (27.0-31.0) 07/03/16 06:20 MCHC Differential 34.5 pg (28.0-36.0) 07/03/16 06:20 RDW 12.5 % (11.5-20.0) 07/03/16 06:20 Plt Count 313 Th/cmm (150-400) 07/03/16 06:20 MPV 7.9 fl 07/03/16 06:20 Neutrophils % 76.7 % (40.0-80.0) 07/03/16 06:20 Band Neutrophils % 2 % (0-10) 07/02/16 05:50 Lymphocytes % 16.2 % (20.0-50.0) L 07/03/16 06:20 Monocytes % 5.3 % (2.0-10.0) 07/03/16 06:20 Eosinophils % 1.3 % (0.0-5.0) 07/03/16 06:20 Basophils % 0.5 % (0.0-2.0) 07/03/16 06:20 Neutrophils (Manual) 74 % (40-80) 07/02/16 05:50 Lymphocytes 15 % (20-50) L 07/02/16 05:50 Monocytes 7 % (2-10) 07/02/16 05:50 Atypical Lymphocytes 2 % 07/02/16 05:50 Platelet Estimate ADEQUATE (NORMAL) 07/02/16 05:50 Platelet Morphology NORMAL (NORMAL) 07/02/16 05:50 RBC Morph Micro Appear NORMAL (NORMAL) 07/02/16 05:50 ESR 69 mm/hr (0-30) H 06/29/16 06:00 PT 10.4 SECONDS (9.5-11.5) 06/30/16 06:05 INR 1.00 (0.5-1.4) 06/30/16 06:05 PTT (Actin FS) 28.5 SECONDS (26.0-38.0) 06/30/16 06:05 Sodium 140 mEq/L (136-145) 07/03/16 06:20 Potassium mEq/L (3.5-5.1) 07/03/16 06:20 Chloride 109 mEq/L (98-107) H 07/03/16 06:20 Carbon Dioxide 22.5 mEq/L (21.0-31.0) 07/03/16 06:20 Anion Gap 11.0 (7.0-16.0) 07/03/16 06:20 BUN 9 mg/dL (7-25) 07/03/16 06:20 Creatinine 1.1 mg/dL (0.6-1.2) 07/03/16 06:20 Est GFR ( Amer) TNP 07/03/16 06:20 Est GFR (Non-Af Amer) TNP 07/03/16 06:20 BUN/Creatinine Ratio 8.2 07/03/16 06:20 Glucose 434 mg/dL (70-105) H 07/03/16 11:57 POC Glucose 186 MG/DL (70 - 105) H 07/03/16 05:12 Hemoglobin A1c % 11.1 % (4.0-6.0) H 06/26/16 06:45 Calcium 8.0 mg/dL (8.6-10.3) L 07/03/16 06:20 Total Bilirubin 0.4 mg/dL (0.3-1.0) 07/03/16 06:20 AST 13 U/L (13-39) 07/03/16 06:20 ALT < 3 U/L (7-52) L 07/03/16 06:20 Alkaline Phosphatase 67 U/L (34-104) 07/03/16 06:20 C-Reactive Protein 10.7 mg/dL (0.0-0.9) H 06/29/16 06:00 Total Protein 5.6 gm/dL (6.0-8.3) L 07/03/16 06:20 Albumin 2.4 gm/dL (3.7-5.3) L 07/03/16 06:20 Globulin 3.2 gm/dL 07/03/16 06:20 Albumin/Globulin Ratio 0.8 (1.0-1.8) L 07/03/16 06:20 TSH 1.52 uIU/ml (0.34-5.60) 06/27/16 06:40 Vancomycin Trough 9.8 ug/mL (10-20) L 07/02/16 09:15 - Physical Exam Vitals and I&O: Vital Signs Temp 98.5 F 07/03/16 12:00 Pulse 84 07/03/16 12:00 Resp 18 07/03/16 12:00 BP 150/69 07/03/16 12:00 Pulse Ox 95 07/03/16 12:00 Intake & Output 07/02/16 07/03/16 07/03/16 18:59 06:59 18:59 Intake Total 600 150 Balance 600 150 Intake: Intake, IV Amount 50 Piperacillin Sodium/ 50 Tazobact 3.375 gm In Sodium Chloride 0.9% 50 ml @ 100 mls/hr IV Q8HR [facility] Rx#:[id number] Oral 600 100 Other: # Voids 3 2 Active Medications: Current Medications Acetaminophen (Tylenol) 650 mg PO Q6H PRN PRN Reason: FEVER 101, MILD PAIN Stop: 08/25/16 03:02 Last Admin: 07/02/16 00:37 Dose: 650 mg Acetaminophen/Hydrocodone Bitart ([place] 5mg/325mg) 1 tab PO Q6H [facility] Stop: 08/31/16 09:14 Last Admin: 07/03/16 09:09 Dose: 1 tab Aspirin (Aspirin Chewable) 81 mg PO DAILY [facility] Stop: 08/29/16 08:59 Last Admin: 07/03/16 08:45 Dose: 81 mg Carbidopa/Levodopa (Sinemet 25mg-100 Mg) 1 tab PO TID [facility] Stop: 08/25/16 08:59 Last Admin: 07/03/16 08:46 Dose: 1 tab Cilostazol (Pletal) 100 mg PO BID [facility] Stop: 08/29/16 08:59 Last Admin: 03/18/17 08:45 Dose: 100 mg Clonidine HCl (Catapres) 0.1 mg PO Q8HR PRN PRN Reason: DBP >90 Stop: 08/29/16 08:48 Last Admin: 06/30/16 16:43 Dose: 0.1 mg Clopidogrel Bisulfate (Plavix) 75 mg PO DAILY [facility] Stop: 08/29/16 08:59 Last Admin: 07/03/16 08:46 Dose: 75 mg Enoxaparin Sodium (Lovenox) 30 mg SUBQ Q12HR [facility] Stop: 08/25/16 13:59 Last Admin: 07/03/16 08:48 Dose: 30 mg Piperacillin Sod/Tazobactam (Sod 3.375 gm/ Sodium Chloride) 50 mls @ 100 mls/ hr IV Q8HR [facility] Stop: 08/25/16 04:59 Last Admin: 07/03/16 05:17 Dose: 100 mls/hr Sodium Chloride (Nacl 0.9%) 1,000 mls @ 50 mls/hr IV .Q20H [facility] Stop: 08/25/16 03:14 Last Admin: 07/02/16 23:11 Dose: 50 mls/hr Levofloxacin (Levaquin Pb) 500 mg in 100 mls @ 100 mls/hr IV Q24HR [facility] Stop: 08/29/16 22:59 Last Admin: 07/02/16 23:09 Dose: 100 mls/hr Vancomycin HCl 1.25 gm/ Sodium (Chloride) 250 mls @ 165 mls/hr IV Q24H [facility] Stop: 08/31/16 15:59 Last Admin: 07/02/16 15:19 Dose: 165 mls/hr Insulin Aspart (Novolog Insulin Sliding Scale) 0 units SUBQ ACHS [facility] PRN Reason: Protocol Stop: 08/25/16 07:29 Last Admin: 07/03/16 11:43 Dose: 13 units Lorazepam (Ativan) 1 mg IVP Q8HR PRN; Protocol PRN Reason: Agitation Stop: 08/26/16 23:27 Last Admin: 06/30/16 20:55 Dose: 1 mg Miscellaneous (Vancomycin Iv Per Pharmacy) 1 ea MC DAILY [facility] Stop: 08/30/16 08:59 Morphine Sulfate (Morphine) 1 mg IVP Q4HR PRN PRN Reason: Pain (Severe) Stop: 08/25/16 20:54 Last Admin: 07/02/16 08:20 Dose: 1 mg Vitamin D (Vitamin D3) 2,000 iu PO DAILY [facility] Stop: 08/29/16 08:59 Last Admin: 07/03/16 08:46 Dose: 2,000 iu - Procedures Procedures: Procedures Procedure Code Date EXCISION OF RIGHT TARSAL, OPEN APPROACH [id number] 06/26/16 REMOVAL OF PRESSURE SORE 13518 06/26/16 Nutritional Asmnt/Malnutr-PDOC - Dietary Evaluation Malnutrition Findings (Please click <Entered> for more info): Nutritional Asmnt/Malnutrition Start: 06/26/16 09: 58 Text: Status: Complete Freq: Document 06/26/16 09:58 ROXANNE (Rec: 06/26/16 10:14 [email or web address]) Nutritional Asmnt/Malnutrition Patient General Information Nutritional Screening High Risk Screening Diagnosis Foot cellulitis (reason for visit) Pertinent Medical Hx/Surgical Hx diabetes and parkinson's disease Subjective Information Patient was transferred to this hospital with foot cellulitis. Patient lying in bed with granddaughter at bedside. Per granddaughter, patient's blood sugar is better controlled at home and doesn't usually go above 200 ( now 335). Patient does not follow a diabetic diet or know what foods affect blood sugar . Provided granddaughter with DM diet education including handouts on food sources of carbohydrates, meal planning and serving sizes. Current Diet Order/ Nutrition Support 60 gm [facility] / S.O Indicated Pertinent Medications vitamin D, novolog Pertinent Labs (06/26) Na 132, Glucose 346, 335, Albumin 3 Nutritional Hx/Data Height 1.55 m Height (Calculated Centimeters) 154.9 Current Weight (lbs) 64.41 kg Weight (Calculated Kilograms) 64.4 Weight (Calculated Grams) 53236.1 [place] Body Weight 105 % [place] Body Weight 135 Recent Weight Change No Weight Status Overweight GI Symptoms GI Symptoms None Food Allergies No Cultural/Ethnic/Anab[employer]ist Belief none indicated Usual diet at home regular Skin Integrity/Comment: 3+ non-pitting edema in R Leg, 2+ non-pitting edema in L leg , Kei 18, Estimated Nutritional Goals BEE in Kcals: Using Current wt Calories/Kcals/Kg 25-30 kcal/kg Kcals Calculated 8017-7347 kcal/day Protein: Using Current wt Protein g/k-1.2 gm/kg (wound healing) Protein Calculated 65-75 gm/day Fluid: ml 5044-7320 ml/day Nutritional Problem 2. Problem Problem Food and nutrition related knowledge deficit related to Etiology lack of prior education on DM diet aeb Signs/Symptoms: unable to recognize food sources of carbohydrates. 1. Problem Problem Altered nutrition related lab values related to Etiology uncontrolled hyperglycemia aeb Signs/Symptoms: glucose 346, 335 Intervention/Recommendation Comments 1. Continue 60gm CCHO diet as tolerated by patient. 2. DM diet education provided/ handouts given. 3. MD to continue to adjust insulin regimen for optimal glycemic control. Expected Outcomes/Goals Expected Outcomes/Goals oral intake >75% of meals, glucose improves (80-180), skin integrity improves, weight remains stable.
[2016-07-03] MEDS ORDERED: Vancomycin HCl 1.5 GM in Sodium Chloride 0.9% 500 ML IV SCH (16:00)
--- NOTE | 2016-07-16 23:51 | Discharge Summary ---
CHIEF COMPLAINT: Cellulitis. HISTORY OF PRESENT ILLNESS: This is a case of a 70-year-old female who referred that she started 2 months ago pain intermittently in one leg and now bilateral leg pain. Pain increased so much that she decided to go to Emergency Room [facility]. The patient was evaluated in [facility], and the diagnosis of cellulitis was done and peripheral vascular disease. The patient was transferred to this hospital to continue treatment. HOSPITAL COURSE AND TREATMENT: This patient was admitted in the medical/surgical floor. She was started on IV normal saline, Zosyn. She was continued with home medications. She was on insulin sliding scale, morphine for pain control. Consult with ID and vascular surgeon was done and recommendations were followed. Angio CT was done and was reported high-grade atherosclerosis, vascular disease ____ involving bilateral ____ to distal, superficial, femoral arteries and popliteal arteries, close to complete occlusion in the right side of region of the distal right superficial femoral artery and popliteal artery. Case was discussed with family and family decided to take patient to a penitentiary and after that, to take her home. DISCHARGE CONDITION: At the moment of the discharge, the patient was awake, alert, and complaining of bilateral leg pain, in some acute distress. PRODUCTION ILLUSTRATOR IN THIS CASE: Dr. Zelaya, Vascular Surgeon, ID. DISPOSITION: The patient is sent to a penitentiary to continue rehabilitation process. Family is aware that the patient will need vascular surgeon consult. The patient will be continued with antibiotic at the penitentiary. IMPRESSION: 1. Peripheral vascular disease with ____ involving the bilateral mild, mid to distal, superficial, femoral, and popliteal arteries, close to complete occlusion of the right side of the region of the distal right superficial femoral and popliteal artery. 2. Cellulitis. 3. Diabetes mellitus. 4. Parkinson disease. JOB# [id number]
== END 2016-07-03 17:45 | DRG 252 ==
LOC: MSI 02:26 → TELE 06-30 09:52 → MSI 07-01 20:25
PROVIDERS: ADMIT General Practice; ATTEND General Practice
PROC: 0QBL0ZZ Excision of Right Tarsal, Open Approach (ICD-10-PCS; principal; 2016-06-28)
PROC: 041K0KL Bypass Right Femoral Artery to Popliteal Artery with Nonautologous Tissue Substitute, Open Approach (ICD-10-PCS; 2016-06-30)
DX: I70.234 Atherosclerosis of native arteries of right leg with ulceration of heel and midfoot (principal); L89.614 Pressure ulcer of right heel, stage 4; I74.8 Embolism and thrombosis of other arteries; G20 Parkinson's disease; L03.115 Cellulitis of right lower limb; I70.92 Chronic total occlusion of artery of the extremities; L03.116 Cellulitis of left lower limb; E11.9 Type 2 diabetes mellitus without complications; I10 Essential (primary) hypertension; Z90.49 Acquired absence of other specified parts of digestive tract
CPT/HCPCS: 36415-UA; 71010-TC; 78315-TC; 80048-TC; 80053-TC; 80202-TC; 82947-TC; 82948-90; 83036-90; 84443-TC; 85007-TC; 85025-TC; 85027-TC; 85610-TC; 85652-TC; 86141-TC; 87070-90; 87075-90; 87205-90; 88304-TC; 93005; 93925-TC; A9503; J1644; J1650; J1815; J1956; J2001; J2060; J2250; J2270; J2543; J2704; J3370; J3480; J7030; J7040; Q9967; V2790; X6206; X6530; Z7610